=== PATIENT | male | born 1955 | race Caucasian/White ===

== ENCOUNTER → 2017-05-29 | Outpatient (CLI) | payer MEDICAID, MEDICARE ==
[~2017-05-29] MED LIST: ALBU17AE23 IH; ASP81TEC PO; ATOR40TA PO; CPR500T PO; GLIM4TAB PO; HYOS0.1216 PO; LISI-556 PO; LVT.15T PO; METF-380 PO; PHEN200T27 PO; PRAV80TA2 PO; TIOT18CA IH
--- NOTE | 2017-05-29 13:02 | Diagnostic Imaging Report ---
INDICATION: Bilateral leg pain. Grayscale, color-flow and duplex Doppler evaluation of bilateral lower extremity deep venous systems was performed. There is no evidence of a right or left lower extremity DVT. Both lower extremity deep venous systems demonstrate normal compressibility with normal response to augmentation and Valsalva. No fluid collection or mass is seen. IMPRESSION: No evidence of right or left lower extremity DVT. Dictated by: Dictated on workstation # [id number]
== END ==
LOC: RAD 08:05
PROVIDERS: ATTEND Internal Medicine
DX: R22.43 Localized swelling, mass and lump, lower limb, bilateral (principal)
CPT/HCPCS: 93970

== ENCOUNTER → 2017-06-29 | Outpatient (CLI) | payer MEDICARE ==
[~2017-06-29] MED LIST changes: +FURO40TA4 PO; +GLIM2TAB PO; +HYDR-3812 PO; +LEVO175T5 PO; +LOSA50TA36 PO; +METF10002 PO; +PRAV40TA2 PO; +TIOT18CA2 IH
== END ==
LOC: WOUNDCARE 10:27
PROVIDERS: ATTEND Nurse Practitioner
DX: L97.212 Non-pressure chronic ulcer of right calf with fat layer exposed (principal); I87.331 Chronic venous hypertension (idiopathic) with ulcer and inflammation of right lower extremity; I87.322 Chronic venous hypertension (idiopathic) with inflammation of left lower extremity; I70.232 Atherosclerosis of native arteries of right leg with ulceration of calf; E11.622 Type 2 diabetes mellitus with other skin ulcer; J44.9 Chronic obstructive pulmonary disease, unspecified; E66.01 Morbid (severe) obesity due to excess calories; T65.222A Toxic effect of tobacco cigarettes, intentional self-harm, initial encounter
CPT/HCPCS: 11042

== ENCOUNTER → 2017-07-06 | Outpatient (CLI) | payer MEDICARE | LOC: WOUNDCARE 10:25 | PROVIDERS: ATTEND Surgery | DX: L97.212 Non-pressure chronic ulcer of right calf with fat layer exposed (principal); I87.331 Chronic venous hypertension (idiopathic) with ulcer and inflammation of right lower extremity; I87.322 Chronic venous hypertension (idiopathic) with inflammation of left lower extremity; I70.232 Atherosclerosis of native arteries of right leg with ulceration of calf; E11.622 Type 2 diabetes mellitus with other skin ulcer; T65.222A Toxic effect of tobacco cigarettes, intentional self-harm, initial encounter; E66.01 Morbid (severe) obesity due to excess calories; J44.9 Chronic obstructive pulmonary disease, unspecified | CPT/HCPCS: 11042 ==

== ENCOUNTER → 2017-07-11 | Outpatient (CLI) | payer MEDICARE | LOC: WOUNDCARE 12:22 | PROVIDERS: ATTEND Surgery | DX: E11.622 Type 2 diabetes mellitus with other skin ulcer (principal); I70.232 Atherosclerosis of native arteries of right leg with ulceration of calf; I87.331 Chronic venous hypertension (idiopathic) with ulcer and inflammation of right lower extremity; I87.322 Chronic venous hypertension (idiopathic) with inflammation of left lower extremity; L97.212 Non-pressure chronic ulcer of right calf with fat layer exposed | CPT/HCPCS: 29581 ==

== ENCOUNTER → 2017-07-26 | Outpatient (CLI) | payer MEDICARE ==
--- NOTE | 2017-07-26 17:26 | Diagnostic Imaging Report ---
INDICATION: 30+-pack-year history of smoking. COMPARISON: None. TECHNIQUE: Routine noncontrast low-dose CT of the chest was performed per department protocol for screening purposes. FINDINGS: Evaluation of the lung west demonstrates relative focal area of ground-glass density with interstitial thickening involving the anterior margins of the right upper lobe. Findings have a chronic fibrotic appearance. Otherwise, there is no focal consolidation, pleural effusion, nor pneumothorax on either side. There is a 5 mm ground-glass micronodular density within the right upper lobe (image 116, series 4). There is a background of diffuse mild emphysematous disease. Punctate 3 mm micronodule is noted within the lateral margins of the right lower lobe (image 231, series 4). Cardiomediastinal structures show normal heart size. There is mild calcified coronary and aortic atherosclerosis. Note is also made of aneurysmal dilatation of the ascending thoracic aorta, as it measures approximately 4.3 cm in diameter. There is also enlargement of the main arterial trunk, as it measures 3.7 cm in diameter. There is no large pericardial effusion. No pathologically enlarged or morphologically abnormal adenopathy is seen within the mediastinum, biju, nor axillae. Bony structures show age-related degenerative changes. No lytic or blastic bony lesions are seen. Included portions of the upper abdomen show no additional acute abnormalities. IMPRESSION: 1. 5 mm ground-glass micronodular density within the right upper lobe and punctate subpleural micronodular density within the right lower lobe. Continued annual screening with low-dose CT chest in 12 months is recommended. 2. Background of mild emphysematous disease with chronic fibrotic appearing changes to the right upper lobe. 3. Mild calcified aortic and coronary atherosclerosis. 4. Aneurysmal dilatation of the ascending thoracic aorta. 5. Enlargement of the main pulmonary arterial trunk. Findings can be seen with underlying pulmonary arterial hypertension. LUNG-RADS CATEGORY: 2. MODIFIER: As above. Dictated by: Dictated on workstation # [id number]
== END ==
LOC: RAD 15:05
PROVIDERS: ATTEND Internal Medicine
DX: Z12.2 Encounter for screening for malignant neoplasm of respiratory organs (principal); J43.9 Emphysema, unspecified; I70.0 Atherosclerosis of aorta; I25.10 Atherosclerotic heart disease of native coronary artery without angina pectoris; I71.2 Thoracic aortic aneurysm, without rupture; I77.89 Other specified disorders of arteries and arterioles; F17.210 Nicotine dependence, cigarettes, uncomplicated

== ENCOUNTER → 2017-07-27 | Outpatient (CLI) | payer MEDICARE | LOC: WOUNDCARE 08:56 | PROVIDERS: ATTEND Surgery | DX: E11.622 Type 2 diabetes mellitus with other skin ulcer (principal); L97.211 Non-pressure chronic ulcer of right calf limited to breakdown of skin; I87.331 Chronic venous hypertension (idiopathic) with ulcer and inflammation of right lower extremity; I87.322 Chronic venous hypertension (idiopathic) with inflammation of left lower extremity; T65.222A Toxic effect of tobacco cigarettes, intentional self-harm, initial encounter; E66.01 Morbid (severe) obesity due to excess calories; J44.9 Chronic obstructive pulmonary disease, unspecified | CPT/HCPCS: 99212 ==

== ENCOUNTER 2017-08-14 05:55 | Outpatient (CLI) | payer MEDICARE ==
[~2017-08-14] VITALS: Ht 182.9 cm; Wt 127.5 kg
[~2017-08-14 05:55] MED LIST changes: -FURO40TA4 PO; -GLIM2TAB PO; -HYDR-3812 PO; -LEVO175T5 PO; -LOSA50TA36 PO; -METF10002 PO; -PRAV40TA2 PO; -TIOT18CA2 IH
[2017-08-14] MEDS ORDERED: METF10002 PO (13:51)
[2017-08-14] MEDS ORDERED: LOSA50TA36 PO (13:51)
[2017-08-14] MEDS ORDERED: HYDR-3812 PO (13:51)
[2017-08-14] MEDS ORDERED: LEVO175T5 PO (13:51)
[2017-08-14] MEDS ORDERED: PRAV40TA2 PO (13:51)
[2017-08-14] MEDS ORDERED: FURO40TA4 PO (13:51)
[2017-08-14] MEDS ORDERED: GLIM2TAB PO (13:51)
[2017-08-14] MEDS ORDERED: TIOT18CA2 IH (13:51)
== END 2017-08-14 13:59 ==
LOC: PREOP 05:55
PROVIDERS: ATTEND Surgery
DX: Z01.818 Encounter for other preprocedural examination (principal); Z12.11 Encounter for screening for malignant neoplasm of colon

== ENCOUNTER 2017-08-21 12:23 | Day surgery (SDC) | payer MEDICARE ==
[~2017-08-21] VITALS: Ht 182.9 cm; Wt 127.5 kg
[~2017-08-21 12:23] MED LIST changes: +FURO40TA4 PO; +GLIM2TAB PO; +HYDR-3812 PO; +LEVO175T5 PO; +LOSA50TA36 PO; +METF10002 PO; +PRAV40TA2 PO; +TIOT18CA2 IH
[2017-08-21] MEDS ORDERED: LACTATED RINGERS 1,000 ML IV ONE (12:33)
[2017-08-21] MEDS ORDERED: LACTATED RINGERS 1,000 ML IV STA (12:53)
[2017-08-21 12:57] VITALS: BP 133/78
[2017-08-21] MEDS ORDERED: PROPOFOL INJECTION 50 ML IV ONE (13:00)
[2017-08-21] MEDS ORDERED: MIDAZOLAM 2 MG/2 ML (VERSED) VIAL ONE (13:00)
--- NOTE | 2017-08-21 13:03 | Progress Note-Pre Operative ---
Pre-Operative Progress Note H&P Reviewed The H&P was reviewed, patient examined and no changes noted. Date Seen by Provider: Aug 21, 2017 Time Seen by Provider: 13:03 Date H&P Reviewed: Aug 21, 2017 Time H&P Reviewed: 13:03 Pre-Operative Diagnosis: screening colonoscopy NAJMA JIANG DO Aug 21, 2017 13:03
--- NOTE | 2017-08-21 13:50 | Progress Note-Post Operative ---
Post-Operative Progess Note Surgeon (s)/Business Applications Developer (s) Surgeon NAJMA JIANG DO Business Applications Developer: na Pre-Operative Diagnosis screening colonoscopy Post-Operative Diagnosis colon polyps Procedure & Operative Findings Date of Procedure 08/21/17 Procedure Performed/Findings colonoscopy with hot bx polypectomy x 5 Anesthesia Type per mda Estimated Blood Loss Estimated blood loss (mL): none Specimens/Packing Specimens Removed colon polyps NAJMA JIANG DO Aug 21, 2017 13:50
--- NOTE | 2017-08-21 13:51 | Discharge Inst-Simple/Standard ---
Discharge Inst-Standard Patient Instructions/Follow Up Plan of Care/Instructions/FU: 2 weeks Vansesa Activity as Tolerated: Yes Discharge Diet: Regular Diet NAJMA JIANG DO Aug 21, 2017 13:51
[2017-08-21 14:00] VITALS: BP 123/67
[2017-08-21 14:50] VITALS: BP 130/81
[2017-08-21 14:55] VITALS: BP 130/81
--- NOTE | 2017-08-21 16:02 | Anesthesia-General Post-Op ---
MAC Patient Condition Mental Status/LOC: Same as Preop Cardiovascular: Satisfactory Nausea/Vomiting: Absent Respiratory: Satisfactory Pain: Controlled Complications: Absent Post Op Complications Complications None Follow Up Care/Instructions Patient Instructions None needed. Anesthesiology Discharge Order Discharge Order Patient was seen after the procedure and he was doing well, no complaints, stable vital signs, no apparent adverse anesthesia problems. NITESH SESAY DO Aug 21, 2017 16:02
--- NOTE | 2017-08-22 03:09 | OPERATIVE REPORT ---
DATE OF SERVICE: 08/21/2017 PREOPERATIVE DIAGNOSIS: Family history of colon cancer, screening colonoscopy. POSTOPERATIVE DIAGNOSIS: Colon polyps. PROCEDURE: Colonoscopy with hot biopsy polypectomy x5. SURGEON: Najma Mendez DO ANESTHESIA: Per MDA. ESTIMATED BLOOD LOSS: None. COMPLICATIONS: None. INDICATIONS: The patient is a 62-year-old male who colonoscopy today. He understands risks and benefits of procedure and wished to proceed with procedure. Consent was signed on the chart. DESCRIPTION OF PROCEDURE: The patient was taken to the endoscopy suite, placed in left lateral recumbent position. Timeout was performed. Digital rectal exam was performed. There were no palpable polyps, mass or ulcerations. The scope was inserted in the rectum and advanced all the way to the cecum with minimal difficulty. Prep was adequate. There were no polyps, mass or ulceration of the cecum or ascending colon. At the hepatic flexure, there were 2 polyps present, which hot biopsy polypectomies were performed. Scope was continued to be slowly retracted back more distal transverse colon. Hot biopsy polypectomy was performed. Scope was continuously retracted back. There were no polyps, masses or ulcerations within the descending colon. Within the sigmoid colon, there are 2 polyps present within this area, which hot biopsy polypectomies were performed. Scope was continuously retracted back to the rectum, where it was also retroflexed noting no other pathology, except for some slight hemorrhoidal disease. Scope was returned to its normal position, slowly withdrawn until completely removed. The patient tolerated the procedure well without any complications and sent to recovery room in stable condition. RECOMMENDATIONS: The patient recommended to have a repeat colonoscopy in 3 years. If he has any problems prior to that, he should be reevaluated at that time. The patient will follow up in 2 weeks to discuss pathology results. Job ID: [id number] DocumentID: [id number] Dictated Date: 08/21/2017 13:55:44 Supervisor Brine Date: 08/22/2017 01:07:40 Dictated By: NAJMA MENDEZ DO
== END 2017-08-21 15:22 | disposition home or self-care (01) ==
LOC: ENDO 12:23
PROVIDERS: ATTEND Surgery
DX: Z12.11 Encounter for screening for malignant neoplasm of colon (principal); D12.3 Benign neoplasm of transverse colon; K63.5 Polyp of colon; Z80.0 Family history of malignant neoplasm of digestive organs; E11.9 Type 2 diabetes mellitus without complications; I10 Essential (primary) hypertension; J44.9 Chronic obstructive pulmonary disease, unspecified; J45.909 Unspecified asthma, uncomplicated; G47.33 Obstructive sleep apnea (adult) (pediatric); F17.210 Nicotine dependence, cigarettes, uncomplicated; Z79.84 Long term (current) use of oral hypoglycemic drugs; Z79.899 Other long term (current) drug therapy
CPT/HCPCS: 82962

== ENCOUNTER → 2018-09-11 | Outpatient (CLI) | payer MEDICARE, OTHER ==
[~2018-09-11] MED LIST changes: -LOSA50TA36 PO; +LOSA50TA63 PO; +METF-399 PO; -METF10002 PO
[2018-09-11 11:56] LABS: BASOPHILS % (AUTO) 0 % (0-10); EOSINOPHILS # (AUTO) 0.4 10^3/uL (0.0-0.3); EOSINOPHILS % (AUTO) 6 % (0-10); HEMATOCRIT 46 % (40-54); HEMOGLOBIN 14.9 G/DL (13.3-17.7); LYMPHOCYTES # (AUTO) 1.1 X 10^3 (1.0-4.0); LYMPHOCYTES % (AUTO) 16 % (12-44); MEAN CORPUSCULAR HEMOGLOBIN 31 PG (25-34); MEAN CORPUSCULAR HGB CONC 33 G/DL (32-36); MEAN CORPUSCULAR VOLUME 95 FL (80-99); MEAN PLATELET VOLUME 10.1 FL (7.4-10.4); MONOCYTES # (AUTO) 0.8 X 10^3 (0.0-1.0); MONOCYTES % (AUTO) 11 % (0-12); NEUTROPHILS # (AUTO) 4.8 X 10^3 (1.8-7.8); NEUTROPHILS % (AUTO) 67 % (42-75); PLATELET COUNT 181 10^3/uL (130-400); RED CELL DISTRIBUTION WIDTH 15.5 % (10.0-14.5); WHITE BLOOD COUNT 7.2 10^3/uL (4.3-11.0)
[2018-09-11 12:16] LABS: ALANINE AMINOTRANSFERASE 36 U/L (0-55); ALBUMIN 3.9 GM/DL (3.2-4.5); ALKALINE PHOSPHATASE 81 U/L (40-136); BILIRUBIN,TOTAL 0.8 MG/DL (0.1-1.0); BUN/CREATININE RATIO 17; CALCIUM 10.1 MG/DL (8.5-10.1); CARBON DIOXIDE 27 MMOL/L (21-32); CHLORIDE 103 MMOL/L (98-107); CREATININE SERUM 0.99 MG/DL (0.60-1.30); GFR ESTIMATED > 60; GLUCOSE 68 MG/DL (70-105); POTASSIUM 4.1 MMOL/L (3.6-5.0); SODIUM 140 MMOL/L (135-145); TOTAL PROTEIN 7.2 GM/DL (6.4-8.2)
== END ==
LOC: LAB 11:25
PROVIDERS: ATTEND Surgery
DX: E11.622 Type 2 diabetes mellitus with other skin ulcer (principal); L97.211 Non-pressure chronic ulcer of right calf limited to breakdown of skin
CPT/HCPCS: 36415; 80053; 83036; 84134; 85025

== ENCOUNTER → 2018-09-11 | Outpatient (CLI) | payer MEDICARE, OTHER | LOC: WOUNDCARE 09:25 | PROVIDERS: ATTEND Surgery | DX: E11.622 Type 2 diabetes mellitus with other skin ulcer (principal); L97.211 Non-pressure chronic ulcer of right calf limited to breakdown of skin; I87.331 Chronic venous hypertension (idiopathic) with ulcer and inflammation of right lower extremity; I70.232 Atherosclerosis of native arteries of right leg with ulceration of calf; T65.222A Toxic effect of tobacco cigarettes, intentional self-harm, initial encounter; E66.01 Morbid (severe) obesity due to excess calories; J44.9 Chronic obstructive pulmonary disease, unspecified | CPT/HCPCS: 99213 ==

== ENCOUNTER → 2018-09-18 | Outpatient (CLI) | payer MEDICARE, OTHER | LOC: WOUNDCARE 09:23 | PROVIDERS: ATTEND Surgery | DX: L97.211 Non-pressure chronic ulcer of right calf limited to breakdown of skin (principal); I87.331 Chronic venous hypertension (idiopathic) with ulcer and inflammation of right lower extremity; I70.232 Atherosclerosis of native arteries of right leg with ulceration of calf; E11.622 Type 2 diabetes mellitus with other skin ulcer; T65.222A Toxic effect of tobacco cigarettes, intentional self-harm, initial encounter; E66.01 Morbid (severe) obesity due to excess calories; E11.52 Type 2 diabetes mellitus with diabetic peripheral angiopathy with gangrene; I96 Gangrene, not elsewhere classified | CPT/HCPCS: 29581 ==

== ENCOUNTER → 2018-09-25 | Outpatient (CLI) | payer MEDICARE, OTHER | LOC: WOUNDCARE 08:31 | PROVIDERS: ATTEND Surgery | DX: L97.211 Non-pressure chronic ulcer of right calf limited to breakdown of skin (principal); I87.331 Chronic venous hypertension (idiopathic) with ulcer and inflammation of right lower extremity; I70.232 Atherosclerosis of native arteries of right leg with ulceration of calf; E11.622 Type 2 diabetes mellitus with other skin ulcer; T65.222A Toxic effect of tobacco cigarettes, intentional self-harm, initial encounter; E66.01 Morbid (severe) obesity due to excess calories; J44.9 Chronic obstructive pulmonary disease, unspecified; E11.52 Type 2 diabetes mellitus with diabetic peripheral angiopathy with gangrene; I96 Gangrene, not elsewhere classified | CPT/HCPCS: 29581 ==

== ENCOUNTER → 2018-10-02 | Outpatient (CLI) | payer MEDICARE, OTHER | LOC: WOUNDCARE 07:59 | PROVIDERS: ATTEND Surgery | DX: E11.622 Type 2 diabetes mellitus with other skin ulcer (principal); I87.331 Chronic venous hypertension (idiopathic) with ulcer and inflammation of right lower extremity; L97.211 Non-pressure chronic ulcer of right calf limited to breakdown of skin; T65.222A Toxic effect of tobacco cigarettes, intentional self-harm, initial encounter; E66.01 Morbid (severe) obesity due to excess calories; J44.9 Chronic obstructive pulmonary disease, unspecified | CPT/HCPCS: 99212 ==

== ENCOUNTER 2020-01-06 11:22 | Inpatient (IN) | payer MEDICARE, OTHER ==
[~2020-01-06] VITALS: Ht 182.8 cm; Wt 129.8 kg
[~2020-01-06 11:22] MED LIST changes: +ACHD5005 PO; -GLIM2TAB PO; +GLIM2TAB4 PO; -HYDR-3812 PO; -TIOT18CA2 IH; +TIOT18CA2 INH
[2020-01-06 13:24] LABS: BASOPHILS % (AUTO) 1 % (0-10); EOSINOPHILS # (AUTO) 0.1 10^3/uL (0.0-0.3); EOSINOPHILS % (AUTO) 2 % (0-10); HEMATOCRIT 46 % (40-54); HEMOGLOBIN 14.1 g/dL (13.3-17.7); LYMPHOCYTES # (AUTO) 0.8 10^3/uL (1.0-4.0); LYMPHOCYTES % (AUTO) 12 % (12-44); MEAN CORPUSCULAR HEMOGLOBIN 31 pg (25-34); MEAN CORPUSCULAR HGB CONC 31 g/dL (32-36); MEAN CORPUSCULAR VOLUME 102 fL (80-99); MEAN PLATELET VOLUME 10.3 fL (9.0-12.2); MONOCYTES # (AUTO) 0.7 10^3/uL (0.0-1.0); MONOCYTES % (AUTO) 10 % (0-12); NEUTROPHILS % (AUTO) 76 % (42-75); PLATELET COUNT 188 10^3/uL (130-400); WHITE BLOOD COUNT 6.6 10^3/uL (4.3-11.0)
[2020-01-06 13:28] LABS: ALBUMIN 3.6 GM/DL (3.2-4.5)
[2020-01-06 13:29] LABS: CHLORIDE 97 MMOL/L (98-107); POTASSIUM 4.1 MMOL/L (3.6-5.0); SODIUM 144 MMOL/L (135-145)
[2020-01-06 13:30] LABS: CALCIUM 10.4 MG/DL (8.5-10.1)
[2020-01-06 13:31] LABS: GLUCOSE 142 MG/DL (70-105); TOTAL PROTEIN 7.4 GM/DL (6.4-8.2)
[2020-01-06 13:32] LABS: CARBON DIOXIDE 37 MMOL/L (21-32)
[2020-01-06 13:33] LABS: BILIRUBIN,TOTAL 1.2 MG/DL (0.1-1.0)
[2020-01-06 13:34] LABS: ALKALINE PHOSPHATASE 74 U/L (40-136)
[2020-01-06 13:35] LABS: CREATININE SERUM 1.19 MG/DL (0.60-1.30); GFR ESTIMATED > 60
[2020-01-06 13:36] LABS: BUN/CREATININE RATIO 14
[2020-01-06 13:37] LABS: ALANINE AMINOTRANSFERASE 28 U/L (0-55)
--- NOTE | 2020-01-06 14:18 | Diagnostic Imaging Report ---
INDICATION: Hypoxia. TECHNIQUE: Frontal chest obtained at 02:10 p.m. and compared to 07/04/2010. FINDINGS: There is marked cardiomegaly which has increased compared to the prior study. There is central vascular congestion. There is some right perihilar scarring versus atelectasis. There is some mild right basilar and left basilar infiltrate versus atelectasis. There is no pleural fluid or pneumothorax. IMPRESSION: Prominent cardiomegaly and central vascular congestion. There is some right perihilar scarring versus atelectasis. There is some bibasilar infiltrate versus atelectasis. There is no significant pleural fluid. Dictated by: Dictated on workstation # [id number]
--- NOTE | 2020-01-06 14:32 | NUR ---
Gildardo LEONARDO APRN AWARE PATIENT REQUESTIN PAIN MEDS.
[2020-01-06] MEDS ORDERED: HYDROcodone/APAP 5 MG/325 MG (LORTAB) TAB PO ONE (15:30)
--- NOTE | 2020-01-06 15:41 | ED General ---
General Chief Complaint: General Problems/Pain Stated Complaint: WOUNDS R LEG Nursing Triage Note: AMB TO TRIAGE WITH CONCERNS OF LOWER LEG SWELLING LEG RED THICKEN SCALING SKIN ON LEG WAS SEEN BY WOUND 1 YEAR AGO. REPORTS THEY GOT BETTER OVER THE LAST MONTH HAS GOT WORSE. PLACED IN ROOM AFTER TRIAGE DUE TO SA02 79% PLACED ON 2L NC Nursing Sepsis Screen: No Definite Risk Source of Information: Patient Exam Limitations: No Limitations History of Present Illness Date Seen by Provider: Jan 06, 2020 Time Seen by Provider: 14:00 Initial Comments To ER with wound to the right lower leg. This has been ongoing for about a month. He saw wound care 1 year ago. Denies fevers or chills. Timing/Duration: 1-2 Days Severity: Moderate Associated Systoms: Denies Symptoms Allergies and Home Medications Allergies Coded Allergies: No Known Drug Allergies (Unverified , 08/14/17) Home Medications Furosemide 40 Mg Tablet, 40 MG PO DAILY, (Reported) Glimepiride 2 Mg Tablet, 2 MG PO DAILY, (Reported) Hydrocodone Bit/Acetaminophen 1 Each Tablet, 1 EACH PO TID PRN for PAIN- MODERATE, (Reported) Levothyroxine Sodium 175 Mcg Tablet, 175 MCG PO DAILY, (Reported) Losartan Potassium 50 Mg Tablet, 50 MG PO DAILY, (Reported) Metformin HCl 1,000 Mg Tablet, 1,000 MG PO BID, (Reported) Pravastatin Sodium 40 Mg Tablet, 40 MG PO HS, (Reported) Tiotropium Coyote 1 Inh Aerp, 1 INH IH DAILY, (Reported) Patient Home Medication List Home Medication List Reviewed: Yes Review of Systems Review of Systems Constitutional: see HPI EENTM: see HPI Respiratory: no symptoms reported Cardiovascular: no symptoms reported Genitourinary: no symptoms reported Musculoskeletal: no symptoms reported Skin: see HPI Psychiatric/Neurological: No Symptoms Reported Hematologic/Lymphatic: No Symptoms Reported Immunological/Allergic: no symptoms reported Past Wqgzrfd-Zhgyac-Uclebi Hx Patient Social History Alcohol Use: Denies Use Recreational Drug Use: No Type Used: Cigarettes Recent Foreign Travel: No Contact w/Someone Who Travel: No Recent Infectious Disease Expo: No Recent Hopitalizations: No Immunizations Up To Date Date of Pneumonia Vaccine: Jun 18, 2017 Date of Influenza Vaccine: Dec 18, 2016 Seasonal Allergies Seasonal Allergies: Yes Past Medical History Surgeries: Yes (UMBILICAL HERNIA) Respiratory: Yes Asthma, Sleep Apnea, COPD Currently Using CPAP: Yes Cardiac: Yes High Cholesterol, Hypertension Neurological: No Reproductive Disorders: No Sexually Transmitted Disease: No HIV/AIDS: No Kidney Stones Gastrointestinal: No Musculoskeletal: No Endocrine: Yes Loss of Vision: Bilateral Cancer: No Psychosocial: No Integumentary: No Blood Disorders: No Adverse Reaction/Blood Tranf: No (N/A) Physical Exam Vital Signs Vital Signs - First Documented 01/06/20 01/06/20 12:29 12:56 Temp 36.4 Pulse 76 Resp 18 B/P (MAP) 128/76 (93) Pulse Ox 79 O2 Delivery Nasal Cannula O2 Flow Rate 2.00 Capillary Refill : Less Than 3 Seconds Height, Weight, BMI Height: 6'0.00" Weight: 281lbs. 0.0oz. 127.238003zh; 38.00 BMI Method: General Appearance: No Apparent Distress, WD/WN Eyes: Bilateral Eye Normal Inspection, Bilateral Eye PERRL, Bilateral Eye EOMI Respiratory: No Accessory Muscle Use, No Respiratory Distress, Decreased Breath Sounds; No Respiratory Distress; Other (he does not wear oxygen at home but his oxygen saturation was about 80% on arrival. He was given 2 L submental oxygen increased to 94%. That was turned off and he again fell to about 86%. Needed admission for hypoxia, antibiotics for the leg.) Cardiovascular: Regular Rate, Rhythm, Normal Peripheral Pulses Gastrointestinal: Normal Bowel Sounds, Non Tender, Soft Neurologic/Psychiatric: Alert, Oriented x3 Skin: Normal Color, Warm/Dry Lymphatic: Other (the right lower extremity from the upper calf distally has scaling thickened erythematous skin with oozing and weeping of serous honey colored fluid.) Comments He has a history of COPD, does not wear oxygen at home, was about 80% on arrival to ER. Progress/Results/Core Measures Suspected Sepsis Recent Fever Within 48 Hours: No Infection Criteria Present: None New/Unexplained Altered Menta: No Sepsis Screen: No Definite Risk SIRS Temperature: Pulse: 76 Respiratory Rate: 18 Laboratory Tests 01/06/20 12:08: White Blood Count 6.6 Blood Pressure 128 /76 Mean: 93 Laboratory Tests 01/06/20 12:08: Creatinine 1.19, Platelet Count 188, Total Bilirubin 1.2H Results/Orders Lab Results Laboratory Tests Test 01/06/20 12:08 Range/Units White Blood Count 6.6 4.3-11.0 10^3/uL Red Blood Count 4.49 4.30-5.52 10^6/uL Hemoglobin 14.1 13.3-17.7 g/dL Hematocrit 46 40-54 % Mean Corpuscular Volume 102 H 80-99 fL Mean Corpuscular Hemoglobin 31 25-34 pg Mean Corpuscular Hemoglobin Concent 31 L 32-36 g/dL Red Cell Distribution Width 16.2 H 10.0-14.5 % Platelet Count 188 130-400 10^3/uL Mean Platelet Volume 10.3 9.0-12.2 fL Immature Granulocyte % (Auto) 0 % Neutrophils (%) (Auto) 76 H 42-75 % Lymphocytes (%) (Auto) 12 12-44 % Monocytes (%) (Auto) 10 0-12 % Eosinophils (%) (Auto) 2 0-10 % Basophils (%) (Auto) 1 0-10 % Neutrophils # (Auto) 5.0 1.8-7.8 10^3/uL Lymphocytes # (Auto) 0.8 L 1.0-4.0 10^3/uL Monocytes # (Auto) 0.7 0.0-1.0 10^3/uL Eosinophils # (Auto) 0.1 0.0-0.3 10^3/uL Basophils # (Auto) 0.0 0.0-0.1 10^3/uL Immature Granulocyte # (Auto) 0.0 0.0-0.1 10^3/uL Sodium Level 144 135-145 MMOL/L Potassium Level 4.1 3.6-5.0 MMOL/L Chloride Level 97 L 98-107 MMOL/L Carbon Dioxide Level 37 H 21-32 MMOL/L Anion Gap 10 5-14 MMOL/L Blood Urea Nitrogen 17 7-18 MG/DL Creatinine 1.19 0.60-1.30 MG/DL Estimat Glomerular Filtration Rate > 60 BUN/Creatinine Ratio 14 Glucose Level 142 H 70-105 MG/DL Calcium Level 10.4 H 8.5-10.1 MG/DL Corrected Calcium 10.7 H 8.5-10.1 MG/DL Total Bilirubin 1.2 H 0.1-1.0 MG/DL Aspartate Amino Transf (AST/SGOT) 28 5-34 U/L Alanine Aminotransferase (ALT/SGPT) 28 0-55 U/L Alkaline Phosphatase 74 40-136 U/L B-Type Natriuretic Peptide 272.5 H <100.0 PG/ML Total Protein 7.4 6.4-8.2 GM/DL Albumin 3.6 3.2-4.5 GM/DL My Orders Orders - MAGY BAILEY APRN Cbc With Automated Diff (01/06/20 13:15) Comprehensive Metabolic Panel (01/06/20 13:15) Ed Iv/Invasive Line Start (01/06/20 13:15) BNP (01/06/20 13:15) Chest 1 View, Ap/Pa Only (01/06/20 13:33) Hydrocodone/Apap 5/325 Tablet (Lortab 5 (01/06/20 15:30) Us Venous Upper Ext Rt (01/06/20 16:02) Medications Given in ED Current Medications Medications Dose Ordered Sig/Wagner Route Start Time Stop Time Status Last Admin Dose Admin Acetaminophen/ Hydrocodone Bitart 1 tab ONCE ONCE PO 01/06/20 15:30 01/06/20 15:31 DC 01/06/20 15:21 1 TAB Vital Signs/I&O 01/06/20 01/06/20 12:29 12:56 Temp 36.4 Pulse 76 Resp 18 B/P (MAP) 128/76 (93) Pulse Ox 79 79 O2 Delivery Nasal Cannula Room Air O2 Flow Rate 2.00 Capillary Refill : Less Than 3 Seconds Blood Pressure Mean: 93 Departure Impression Primary Impression: Hypoxia Additional Impressions: COPD exacerbation Cellulitis of right lower extremity Disposition: ADMITTED INPATIENT Condition: Stable Departure-Patient Inst. Referrals: EMILY PISANO MD (PCP/Family) Primary Care Physician MAGY BAILEY APRN Jan 06, 2020 15:41
--- NOTE | 2020-01-06 15:42 | NUR ---
PLACED BACK ON AT 2L SA02 AT 89%
--- NOTE | 2020-01-06 16:11 | NUR ---
CALLED FOR ROOM
--- NOTE | 2020-01-06 16:21 | NUR ---
COVID SWAB DONE BY Gildardo BAILEY APRN
--- NOTE | 2020-01-06 17:07 | NUR ---
CON'T TO WAIT FOR ADMIT PAPERS STEFFANIE COPIED.
[2020-01-06 17:47] VITALS: BP 114/59
[2020-01-06] MEDS: methylPREDNISolone 40 MG/ML (Solu-MEDROL) VIAL IV SCH (18:11)
[2020-01-06] MEDS: ENOXAPARIN 40 MG/0.4 ML (LOVENOX) SYR SC SCH (18:11)
--- NOTE | 2020-01-06 18:13 | NUR ---
CR 1.19; CR CL > 60; WT 127.2 KG; VANCO 2000 MG IV Q12H; TROUGH AFTER 3RD DOSE
[2020-01-06] MEDS ORDERED: HYDROcodone/APAP 5 MG/325 MG (LORTAB) TAB PO PRN (18:15)
[2020-01-06] MEDS ORDERED: PIPERACILLIN/TAZO 4.5 GM/NS 100 ML IV NR ×2 (18:15)
[2020-01-06] MEDS: LACTATED RINGERS 1,000 ML IV SCH (18:18)
[2020-01-06] MEDS: VANCOMYCIN 2000 MG/NS 500 ML IVPB IV SCH ×2 (18:23)
--- NOTE | 2020-01-06 18:28 | NUR ---
DENAE KRUGER admitted to room 415-1, with an admitting diagnosis of copd exacerbtion, on 01/06/20 from ED via wheel chair , accompanied by staff .DENAE KRUGER introduced to surroundings, call light, bed controls, phone, TV, temperature control, lights, meal times, smoking policy, visitor policy, side rail policy, bathrooms and showers. Patient Rights given to patient in the handbook. DENAE KRUGER verbalizes understanding that [facility] is not responsible for the loss or damage to any personal effects or valuables that are kept in the patients posession during their hospitalization. The following Patient Care Plans and discharge were discussed with the patient . DENAE KRUGER verbalizes understanding of Interdisciplinary Patient Education. Patient was informed about the Rapid Response Team and its purpose.
[2020-01-06 19:39] VITALS: BP 114/59
[2020-01-06] MEDS: MONTELUKAST 10 MG (SINGULAIR) TAB PO SCH (20:51)
[2020-01-06] MEDS: inSUlin ASPART (NovoLOG) 1 UNIT/0.01 ML (CHARGE PER UNIT) SC SCH (20:51)
[2020-01-06] MEDS ORDERED: ONDANSETRON 4 MG/2 ML (SDV) Z0FRAN IVP PRN (21:15)
[2020-01-06] MEDS ORDERED: LOPERAMIDE 2 MG (IMODIUM) TABLET PO PRN (21:15)
[2020-01-06] MEDS ORDERED: ENOXAPARIN 40 MG/0.4 ML (LOVENOX) SYR SC SCH (21:15)
[2020-01-06] MEDS ORDERED: DOCUSATE SODIUM 100 MG (COLACE) CAP PO PRN (21:15)
[2020-01-06] MEDS ORDERED: CALCIUM CARBONATE 500 MG (TUMS) TAB.CHEW PO PRN (21:15)
[2020-01-06] MEDS ORDERED: diphenhydrAMINE 25 MG TAB (BENADRYL) PO PRN (21:15)
[2020-01-06 21:26] VITALS: BP 128/76
--- NOTE | 2020-01-06 21:40 | NUR ---
MANISH QID AND Q2 PRN. JORGE LUGO. INITIATE 02 2-4L TO KEEP SATS GREATER THAN 90%. RT TO REASSESS OR REEVALUATE IN 72 HOURS OR NEEDED. Addendum: 01/06/20 at 2141 by SIMEON HART RT Amended: Links added.
[2020-01-06] MEDS: ADVAIR HFA 115/21 MCG INHALER 8 GM IH SCH (22:49)
[2020-01-06 23:52] VITALS: BP 119/62
[2020-01-07] MEDS: methylPREDNISolone 40 MG/ML (Solu-MEDROL) VIAL IV SCH ×3 (00:15→16:58)
[2020-01-07] MEDS: PIPERACILLIN/TAZO 4.5 GM/NS 100 ML IV SCH ×6 (00:15→16:57)
[2020-01-07] MEDS: HYDROcodone/APAP 5 MG/325 MG (LORTAB) TAB PO PRN ×4 (01:27→16:59)
[2020-01-07 04:08] VITALS: BP 119/75
[2020-01-07] MEDS: LACTATED RINGERS 1,000 ML IV SCH ×3 (04:38→17:00)
[2020-01-07 05:50] LABS: BASOPHILS % (AUTO) 0 % (0-10); EOSINOPHILS % (AUTO) 0 % (0-10); HEMATOCRIT 44 % (40-54); HEMOGLOBIN 13.3 g/dL (13.3-17.7); LYMPHOCYTES # (AUTO) 0.3 10^3/uL (1.0-4.0); LYMPHOCYTES % (AUTO) 6 % (12-44); MEAN CORPUSCULAR HEMOGLOBIN 31 pg (25-34); MEAN CORPUSCULAR HGB CONC 30 g/dL (32-36); MEAN CORPUSCULAR VOLUME 103 fL (80-99); MEAN PLATELET VOLUME 10.5 fL (9.0-12.2); MONOCYTES # (AUTO) 0.1 10^3/uL (0.0-1.0); MONOCYTES % (AUTO) 2 % (0-12); NEUTROPHILS # (AUTO) 4.8 10^3/uL (1.8-7.8); NEUTROPHILS % (AUTO) 91 % (42-75); PLATELET COUNT 173 10^3/uL (130-400); WHITE BLOOD COUNT 5.3 10^3/uL (4.3-11.0)
[2020-01-07 06:03] LABS: ALBUMIN 3.4 GM/DL (3.2-4.5); POTASSIUM 4.9 MMOL/L (3.6-5.0)
[2020-01-07 06:04] LABS: CALCIUM 9.6 MG/DL (8.5-10.1)
[2020-01-07 06:07] LABS: BILIRUBIN,TOTAL 1.1 MG/DL (0.1-1.0)
[2020-01-07] MEDS: VANCOMYCIN 2000 MG/NS 500 ML IVPB IV SCH ×4 (06:08→17:53)
[2020-01-07] MEDS: inSUlin ASPART (NovoLOG) 1 UNIT/0.01 ML (CHARGE PER UNIT) SC SCH ×4 (06:08→20:37)
[2020-01-07 06:09] LABS: CREATININE SERUM 1.22 MG/DL (0.60-1.30)
[2020-01-07 06:43] LABS: ANISOCYTOSIS SLIGHT; BAND NEUTROPHILS 4 %; LYMPHOCYTES % (MANUAL) 5 %; NEUTROPHILS % (MANUAL) 91 %; POLYCHROMASIA SLIGHT
[2020-01-07] MEDS ORDERED: RT-ALBUTEROL/IPRATROPIUM 3 ML (DUONEB) VIAL INH PRN (06:45)
[2020-01-07] MEDS: ADVAIR HFA 115/21 MCG INHALER 8 GM IH SCH ×2 (06:52→20:35)
[2020-01-07] MEDS: RT-ALBUTEROL/IPRATROPIUM 3 ML (DUONEB) VIAL INH SCH ×4 (06:52→20:33)
[2020-01-07 07:31] VITALS: BP 128/60
[2020-01-07] MEDS: SENNA W/DOCUSATE (SENOKOT S) TABLET PO SCH ×2 (08:38→20:39)
--- NOTE | 2020-01-07 08:55 | Diagnostic Imaging Report ---
PROCEDURE: US right lower extremity venous. TECHNIQUE: Multiple Real-time grayscale images were obtained over the right lower extremity in various projections. Additional spectral analysis and color Doppler duplex images were also obtained. INDICATION: Right lower extremity pain and swelling, open weeping wounds along the right calf. FINDINGS: The right lower extremity venous Doppler demonstrates no evidence of DVT. Edema is present in the right calf. The calf veins are not well visualized but no definite DVT is seen. IMPRESSION: The calf veins are not well imaged but no definite DVT is seen within these. The remainder of the deep venous system appears normal. Dictated by: Dictated on workstation # [id number]
[2020-01-07 10:47] VITALS: BP 125/60
[2020-01-07] MEDS ORDERED: CHOL10002 PO (11:23)
[2020-01-07] MEDS ORDERED: ASCO-262 PO (11:23)
--- NOTE | 2020-01-07 11:54 | History & Physical-Hospitalist ---
REMEDIOS SAPRKS MED STUDENT 01/07/20 1154: History of Present Illness HPI/Chief Complaint Hugh Mckay is a 64 y/o white male who presented to the ED yesterday afternoon with complaints of "wounds to my right lower leg, swelling, redness, and pain." His initial oxygen saturation in the ED was found to be 79% on RA. He reports these symptoms started approximately one month ago. The swelling, redness, warmth, and drainage has progressively worsened over the past week. He states he tried washing his leg frequently with soap and water as well as placing dressings on the wound at home. He cannot recall how or what he's been using to dress his right lower extremity. He reports his pain is a "12/10" currently and is extremely tender to palpation. Reports that touching the leg and walking worsen the pain. Reports that pain meds and lying with the leg elevated on a pillow help decrease the pain. He also reports having had an issue on this leg about a year ago for which he was treated by a wound physician. Source: patient, RN/MD (ED note) Exam Limitations: no limitations Date Seen 01/07/20 Time Seen by a Provider: 08:00 Attending Physician Shanna Barfield DO PCP Oleksandr Araujo MD Referring Physician Date of Admission Jan 06, 2020 at 17:03 Home Medications & Allergies Home Medications Reviewed patient Home Medication Reconciliation performed by pharmacy medication reconciliations two way radio technician and/or nursing. Patients Allergies have been reviewed. Allergies Allergies Coded Allergies No Known Drug Allergies (Unverified08/14/17) Past Ferfzlx-Uyaodj-Ubjgez Hx Past Med/Social Hx: Reviewed Nursing Past Med/Soc Hx Patient Social History Marrital Status: single Alcohol Use: Denies Use Recreational Drug Use: No Smoking Status: Former Smoker (patient reports 1.5 PPD x 35 years, quit 6 days ago per patient report) Type Used: Cigarettes Recent Foreign Travel: No Contact w/other who traveled: No Recent Hopitalizations: No Recent Infectious Disease Expo: No Immunizations Up To Date Date of Pneumonia Vaccine: Jun 18, 2017 Date of Influenza Vaccine: Dec 18, 2016 Seasonal Allergies Seasonal Allergies: Yes Past Medical History umbilical hernia repair Respiratory: Asthma, COPD, Sleep Apnea Currently Using CPAP: No (state he hasn't used CPAP in about 2 years) Currently Using BIPAP: No Cardiac: High Cholesterol, Hypertension, Irregular Heartbeat Reproductive: No Sexually Transmitted Disease: No HIV/AIDS: No Genitourinary: Kidney Stones Gastrointestinal: Abdominal Hernia (umbilical hernia repaired per patient report), Gastroesophageal Reflux, Polyps Endocrine: Diabetes, Non-Insulin dep Loss of Vision: Denies Hearing Impairment: Denies History of Blood Disorders: No Adverse Reaction to Blood [place]: No (N/A) Family History Asthma 19 FATHER Cardiovascular disease Colon cancer G8 BROTHER Diabetes mellitus 19 FATHER 19 MOTHER G8 BROTHER Respiratory disorder 19 FATHER G8 BROTHER Review of Systems Constitutional: no symptoms reported; No chills, No diaphoresis, No dizziness, No fever EENTM: no symptoms reported; No hearing loss, No ear pain, No blurred vision, No double vision Respiratory: cough (nonproductive), dyspnea on exertion; No hemoptysis; short of breath, wheezing (lugs all west bilaterally) Cardiovascular: No chest pain, No palpitations Gastrointestinal: no symptoms reported; No abdominal pain, No constipation, No diarrhea, No dysphagia, No hematemesis, No nausea, No vomiting Genitourinary: no symptoms reported; No dysuria, No frequency Musculoskeletal: no symptoms reported; No back pain, No joint pain Skin: change in color (RLE reddened, weeping, warm, edematous) Psychiatric/Neurological: No Symptoms Reported; Denies Anxiety, Denies Depressed, Denies Headache, Denies Numbness, Denies Tingling All Other Systems Reviewed Negative Unless Noted: Yes Physical Exam Physical Exam Vital Signs Vital Signs - First Documented 01/06/20 01/06/20 01/06/20 12:29 12:56 21:26 Temp 36.4 Pulse 76 Resp 18 B/P (MAP) 128/76 (93) Pulse Ox 79 O2 Delivery Nasal Cannula O2 Flow Rate 2.00 FiO2 28 Capillary Refill : Less Than 3 SecondsLess Than 3 Seconds Height, Weight, BMI Height: 6'0.00" Weight: 281lbs. 0.0oz. [id number]; 38.06 BMI Method: General Appearance: No Apparent Distress, WD/WN Eyes: Bilateral Eye EOMI HEENT: PERRL/EOMI, Pharynx Normal Neck: Normal Inspection, Non Tender Respiratory: Chest Non Tender, No Accessory Muscle Use, No Respiratory Distress, Wheezing Cardiovascular: Normal Peripheral Pulses, Irregularly Irregular Gastrointestinal: Normal Bowel Sounds, Non Tender, Soft; No Distended, No Guarding Rectal: Deferred Back: Normal Inspection; No Muscle Spasm, No Vertebral Tenderness Extremity: Normal Capillary Refill, Inflammation (RLE), Pedal Edema (RLE), Swelling (RLE) Neurologic/Psychiatric: Alert, Oriented x3, Normal Mood/Affect; No Disoriented, No Sensory Deficit Skin: Erythema (RLE warm, red, weeping, edematous) Lymphatic: No Adenopathy Results Results/Procedures Labs Laboratory Tests 01/06/20 12:08 01/07/20 05:20 Patient resulted labs reviewed. Imaging: Reviewed Imaging Report Assessment/Plan Admission Diagnosis Hypoxia COPD exacerbation Right lower extrem Cellulitis Admission Status: Inpatient Order (span 2 midnights) Reason for Inpatient Admission: Hypoxia- oxygen required COPD exac- needs steroids Cellulitis- needs IV abx Assessment and Plan Hypoxia COPD exacerbation Right lower extrem cellulitis 1. Continue vancomycin and Zosyn 2. Oxygen via NC, wean as tolerated 3. Scheduled Duoneb and PRN 4. Continue Solumedrol IV 5. Lovenox for DVT prophylaxis 6. Monitor glucoses, treat per sliding scale 7. Continue pain management with lortab 8. General surgery consult-cellulitis Clinical Quality Measures DVT/VTE Risk/Contraindication: Risk Factor Score Per Nursin RFS Level Per Nursing on Admit: 4+=Very High SHANNA BARFIELD DO 01/08/20 0548: History of Present Illness HPI/Chief Complaint CC: Right leg pain HPI: This is a 64yoWM clinic Pt of [facility] who presents to the ER with right lower extremity cellulitis with drainage, Dr. Mendez was consulted. Pt underwear venous-Doppler showing no evidence of DVT, he will be restarted on home medication and maintained on broad-spectrum antibiotics along with IV steroids for exacerbation of COPD with hypoxia. He continues to smoke about 1.5 packs per day. Past Gtawvnr-Olkbkh-Gxmywp Hx Past Med/Social Hx: Reviewed Nursing Past Med/Soc Hx, Reviewed and Corrections made Patient Social History Marrital Status: single Family History Asthma 19 FATHER Cardiovascular disease Colon cancer G8 BROTHER Diabetes mellitus 19 FATHER 19 MOTHER G8 BROTHER Respiratory disorder 19 FATHER G8 BROTHER Review of Systems Constitutional: see HPI Physical Exam Physical Exam General Appearance: No Apparent Distress, Chronically ill Respiratory: Crackles, Decreased Breath Sounds Cardiovascular: Regular Rate, Rhythm Extremity: Inflammation (RLE), Pedal Edema (RLE), Swelling (RLE) Neurologic/Psychiatric: Alert Assessment/Plan Admission Diagnosis IV steroids IV abx Sound care O2 Admission Status: Inpatient Order (span 2 midnights) Reason for Inpatient Admission: severe right leg cellulitis with aecopd with hypoxia Diagnosis/Problems Diagnosis/Problems (1) Cellulitis of right lower extremity Status: Acute (2) COPD exacerbation Status: Acute (3) Hypoxia Status: Acute Supervisory-Addendum Brief Verification & Attestation Participated in pt care: history, MDM, physical Personally performed: exam, history, MDM, supervision of care Care discussed with: Medical Student Procedures: n/a Results interpretation: Verified all documentation Verification and Attestation of Medical Student E/M Service A medical student performed and documented this service in my presence. I reviewed and verified all information documented by the medical student and made modifications to such information, when appropriate. I personally performed the physical exam and medical decision making. Shanna Barfield, Jan 08, 2020,05:46 REMEDIOS SPARKS MED STUDENT Jan 07, 2020 11:54 SHANNA BARFIELD DO Jan 08, 2020 05:48
[2020-01-07 12:00] VITALS: BP 125/60
--- NOTE | 2020-01-07 12:22 | NUR ---
I SPOKE WITH THE PATIENT, WENT THROUGH THEIR MED LIST BROUGHT FROM HOME, AND WENT THROUGH THE EXTERNAL MED HISTORY TO COMPLETE THIS MED REC. OTC: VITAMIN C VITAMIN D
--- NOTE | 2020-01-07 13:46 | NUR ---
"RD ASSESSMENT PMHx: COPD; hypercholesterolemia; HTN; DM PT INTERACTION: Pt was awake and pleasant during nutrition assessment. Pt states current appetite is alright. Note avg PO intake of 100% x2meal, per chart review. Pt states following a regular diet at home, and has no issues with chewing/swallowing food. Pt states no recent issues with nausea, vomiting, constipation, or diarrhea. Note last BM was 01/06, and pt currently on bowel regimen of senna BID, per chart review. Pt states recent wt loss, but is unsure of amount/timeframe. Note unable to determine recent wt hx, per chart review. Pt states current DM management is pretty good. Note unable to determine recent HbA1c, per chart review. Note presence of R LE wound, per chart review. ABNORMAL NUTRITION-RELATED LAB VALUES LOW: HIGH: BUN 19; glu 218; bili 1.8 Est. kcal needs: 7054-8928 kcal | 15-18 kcal/kg Est. Pro needs: 133-159 g Pro | 1.0-1.2 g Pro/kg PES STATEMENT: Inadequate protein intake ([id number]) related to increased protein needs as evidenced by presence of R LE wound. INTERVENTION: Continue with current diet order of CHO 75g/m 0snack diet. Offered diet education on DM management and CHO counting, but pt declined. Pt states knowing a bit of CHO counting, but not interested in it. Will attempt to offer again prior to discharge. Will continue to follow and reassess as pt needs, intake, and status change. Ya Rosales, MS RD LD"
--- NOTE | 2020-01-07 13:47 | NUR ---
RLE ELEVATED WITH PILLOWS
[2020-01-07 15:32] VITALS: BP 116/64
--- NOTE | 2020-01-07 17:06 | Consultation - Surgery ---
ANA LAFLEUR MED STUDENT 01/07/20 1706: History of Present Illness History of Present Illness Patient Consulted On(sherri/time) 01/07/20 17:00 Date Seen by Provider: Jan 07, 2020 Time Seen by Provider: 07:45 History of Present Illness Hugh Mckay is a 64 YO male smoker with history of DM, HTN, HLD, COPD and obesity who came to the ER for worsening of chronic wound of right leg. Pt states he has been dealing with this for years, but his leg has been worsening for the past month. He notes increased redness, pain, and clear weeping from the right leg. Has some redness in his left leg, but says his right is worse. His WBC in the ER was 5.3, but pt was started on Zosyn and Vancomycin. Also notes some SOB and wheezing due to his COPD. Pt smoked 1.5 ppd for the past 30+ years but says he quit 6 days ago. Not on home O2. Surgery consulted to assess for possible cellulitis. Allergies and Home Medications Allergies Coded Allergies: No Known Drug Allergies (Unverified , 08/14/17) Home Medications Ascorbate Calcium 500 Mg Tablet, 500 MG PO DAILY, (Reported) Cholecalciferol (Vitamin D3) 25 Mcg Tablet, 25 MCG PO DAILY, (Reported) Furosemide 40 Mg Tablet, 40 MG PO DAILY, (Reported) Glimepiride 2 Mg Tablet, 2 MG PO DAILY, (Reported) Levothyroxine Sodium 175 Mcg Tablet, 175 MCG PO DAILY, (Reported) TAKE HALF AN HOUR BEFORE BREAKFAST Losartan Potassium 50 Mg Tablet, 50 MG PO DAILY, (Reported) Metformin HCl 1,000 Mg Tablet, 1,000 MG PO BID, (Reported) Pravastatin Sodium 40 Mg Tablet, 40 MG PO HS, (Reported) Tiotropium [place] 1 Inh Aerp, 1 PUFF INH DAILY, (Reported) Past Jjhdrgi-Rxdphw-Kompun Hx Patient Social History Alcohol Use: Denies Use Recreational Drug Use: No Smoking Status: Former Smoker (patient reports 1.5 PPD x 35 years, quit 6 days ago per patient report) Type Used: Cigarettes Recent Foreign Travel: No Contact w/Someone Who Travel: No Recent Infectious Disease Expo: No Recent Hopitalizations: No Immunizations Up To Date Date of Pneumonia Vaccine: Jun 18, 2017 Date of Influenza Vaccine: Dec 18, 2016 Seasonal Allergies Seasonal Allergies: Yes Surgeries History of Surgeries: Yes (UMBILICAL HERNIA) Respiratory History of Respiratory Disorde: Yes Respiratory Disorders: Asthma, Sleep Apnea, COPD Cardiovascular History of Cardiac Disorders: Yes Cardiac Disorders: High Cholesterol, Hypertension, Irregular Heartbeat Neurological History of Neurological Disord: No Reproductive System Hx Reproductive Disorders: No Sexually Transmitted Disease: No HIV/AIDS: No Genitourinary Genitourinary Disorders: Kidney Stones Gastrointestinal History of Gastrointestinal Di: No Gastrointestinal Disorders: Abdominal Hernia (umbilical hernia repaired per patient report), Gastroesophageal Reflux, Polyps Musculoskeletal History of Musculoskeletal Dis: No Endocrine History of Endocrine Disorders: Yes Endocrine Disorders: Diabetes, Non-Insulin dep HEENT Loss of Vision: Denies Hearing Impairment: Denies Cancer History of Cancer: No Psychosocial History of Psychiatric Problem: No Integumentary History of Skin or Integumenta: No Blood Transfusions History of Blood Disorders: No Adverse Reaction to a Blood Tr: No (N/A) Family Medical History Family Medial History: Asthma 19 FATHER Cardiovascular disease Colon cancer G8 BROTHER Diabetes mellitus 19 FATHER 19 MOTHER G8 BROTHER Respiratory disorder 19 FATHER G8 BROTHER Review of Systems-General Constitutional: No chills, No fever EENTM: No blurred vision, No double vision Respiratory: short of breath, wheezing Cardiovascular: No chest pain, No palpitations Gastrointestinal: No abdominal pain, No constipation Genitourinary: No dysuria, No hematuria Musculoskeletal: No back pain, No joint pain Skin: No change in hair/nails; other (RLE pain/redness/weeping; LLE pain/redness) Psychiatric/Neurological: Denies Headache, Denies Seizure All Other Systems Reviewed Negative Unless Noted: Yes Physical Exam-General Problems Physical Exam Vital Signs Vital Signs - First Documented 01/06/20 01/06/20 01/06/20 12:29 12:56 21:26 Temp 36.4 Pulse 76 Resp 18 B/P (MAP) 128/76 (93) Pulse Ox 79 O2 Delivery Nasal Cannula O2 Flow Rate 2.00 FiO2 28 Capillary Refill : Less Than 3 SecondsLess Than 3 Seconds General Appearance: WD/WN, no apparent distress Eyes: Bilateral Eye Normal Inspection, Bilateral Eye EOMI HEENT: PERRL/EOMI, normal ENT inspection Neck: supple, normal inspection Respiratory: chest non-tender, no respiratory distress, no accessory muscle use, wheezing Cardiovascular: regular rate, rhythm, no murmur Peripheral Pulses: 1+ Dorsalis Pedis (R); 2+ Left Dors-Pedis (L) Gastrointestinal: non tender, soft, other (obese) Back: normal inspection, no vertebral tenderness Extremities: normal capillary refill, other (erythema, swelling, and some areas of weeping and ulceration to RLE below the knee, worse than LLE; swelling and er ythema to the left leg below the calf; capillary refill <3 seconds \distally) Neurologic/Psychiatric: no motor/sensory deficits, alert, normal mood/affect Skin: warm/dry; No pallor Lymphatic: no adenopathy Data Review Labs Laboratory Tests 01/06/20 20:10: Glucometer 185H 01/07/20 05:13: Glucometer 209H 01/07/20 05:20: White Blood Count 5.3, Red Blood Count 4.26L, Hemoglobin 13.3, Hematocrit 44, Mean Corpuscular Volume 103H, Mean Corpuscular Hemoglobin 31, Mean Corpuscular H emoglobin Concent 30L, Red Cell Distribution Width 16.3H, Platelet Count 173, Mean Platelet Volume 10.5, Immature Granulocyte % (Auto) 1, Neutrophils (%) (Auto) 91H, Lymphocytes (%) (Auto) 6L, Monocytes (%) (Auto) 2, Eosinophils (%) (Auto) 0, Basophils (%) (Auto) 0, Neutrophils # (Auto) 4.8, Lymphocytes # (Auto) 0.3L, Monocytes # (Auto) 0.1, Eosinophils # (Auto) 0.0, Basophils # (Auto) 0.0, Immature Granulocyte # (Auto) 0.0, Neutrophils % (Manual) 91, Lymphocytes % (Manual) 5, Band Neutrophils 4, Polychromasia SLIGHT, Anisocytosis SLIGHT, Blood Morphology Comment , Sodium Level 141, Potassium Level 4.9, Chloride Level 99, Carbon Dioxide Level 34H, Anion Gap 8, Blood Urea Nitrogen 19H, Creatinine 1.22, Estimat Glomerular Filtration Rate 60, BUN/Creatinine Ratio 16, Glucose Level 218H, Calcium Level 9.6, Corrected Calcium 10.1, Total Bilirubin 1.1H, Aspartate Amino Transf (AST/SGOT) 23, Alanine Aminotransferase (ALT/SGPT) 26, Alkaline Phosphatase 66, Total Protein 7.0, Albumin 3.4 01/07/20 10:44: Glucometer 264H 01/07/20 15:34: Glucometer 249H Microbiology 01/06/20 Gram Stain - Final, Resulted 01/06/20 Wound Culture - Preliminary, Resulted Staphylococcus aureus Assessment/Plan Assessment/Plan Assessment/Plan Assessment: cellulitis vs venous stasis of BLE COPD DM obesity hx smoking Plan: Doppler US of RLE planned for today Monitor labs continue medical management Clinical Quality Measures DVT/VTE Risk/Contraindication: Risk Factor Score Per Nursin RFS Level Per Nursing on Admit: 4+=Very High NAJMA JIANG DO 01/07/202048: History of Present Illness History of Present Illness History of Present Illness Consult requested by Dr. Fofana for right lower extremity cellulitis. Patient is a 64-year-old male with significant smoking history diabetes hypertension hyperlipidemia COPD and obesity. Patient has chronic wounds of his right lower extremity which he states that he used to go to wound care and got this pretty much healed up. He has been having these issues for years but the last month they began to return. The last week it has worsened. He has pain in the right lower extremity especially to the touch. The redness has intensified over the last week. He has some serous appearing drainage. Patient was also found to be hypoxic when he came into the emergency department. Movement makes breathing worse. He states that he quit smoking cigarettes approximately 6 days ago. Patient denies any nausea vomiting fever sweats chills or chest pain. Allergies and Home Medications Allergies Coded Allergies: No Known Drug Allergies (Unverified , 08/14/17) Home Medications Ascorbate Calcium 500 Mg Tablet, 500 MG PO DAILY, (Reported) Cholecalciferol (Vitamin D3) 25 Mcg Tablet, 25 MCG PO DAILY, (Reported) Furosemide 40 Mg Tablet, 40 MG PO DAILY, (Reported) Glimepiride 2 Mg Tablet, 2 MG PO DAILY, (Reported) Levothyroxine Sodium 175 Mcg Tablet, 175 MCG PO DAILY, (Reported) TAKE HALF AN HOUR BEFORE BREAKFAST Losartan Potassium 50 Mg Tablet, 50 MG PO DAILY, (Reported) Metformin HCl 1,000 Mg Tablet, 1,000 MG PO BID, (Reported) Pravastatin Sodium 40 Mg Tablet, 40 MG PO HS, (Reported) Tiotropium [place] 1 Inh Aerp, 1 PUFF INH DAILY, (Reported) Patient Home Medication List Home Medication List Reviewed: Yes Past Uffqpyo-Vyscgt-Agsjpf Hx Reviewed Nursing Assessment Reviewed/Agree w Nursing PMH: Yes Family Medical History Significant Family History: No Pertinent Family Hx Family Medial History: Asthma 19 FATHER Cardiovascular disease Colon cancer G8 BROTHER Diabetes mellitus 19 FATHER 19 MOTHER G8 BROTHER Respiratory disorder 19 FATHER G8 BROTHER Review of Systems-General Constitutional: No chills, No fever EENTM: No blurred vision, No double vision Respiratory: short of breath, wheezing Cardiovascular: No chest pain, No palpitations Gastrointestinal: No abdominal pain, No constipation Genitourinary: No dysuria, No hematuria Musculoskeletal: No back pain, No joint pain Skin: change in color; No change in hair/nails; other (RLE pain/redness/weeping; LLE pain/redness) Psychiatric/Neurological: Denies Headache, Denies Seizure All Other Systems Reviewed Negative Unless Noted: Yes (Negative excepted noted.) Physical Exam-General Problems Physical Exam General Appearance: WD/WN, no apparent distress, obese Eyes: Bilateral Eye Normal Inspection, Bilateral Eye EOMI HEENT: PERRL/EOMI, normal ENT inspection Neck: supple, normal inspection Respiratory: chest non-tender, no respiratory distress, no accessory muscle use Cardiovascular: regular rate, rhythm, no JVD Peripheral Pulses: 1+ Dorsalis Pedis (R); 2+ Left Dors-Pedis (L) Gastrointestinal: non tender, soft, other (obese) Rectal: deferred Back: normal inspection, no vertebral tenderness Extremities: other (erythema, swelling, and some areas of weeping and ulceration to RLE below the knee, worse than LLE; swelling and erythema to the left leg below the calf; capillary refill <3 seconds \distally) Neurologic/Psychiatric: no motor/sensory deficits, alert, normal mood/affect Skin: other (Erythema and superficial ulcerations to right lower extremity and appearance of chronic venous stasis ) Lymphatic: no adenopathy Assessment/Plan Assessment/Plan Assessment/Plan cellulitis vs venous stasis of BLE COPD DM obesity hx smoking Doppler US of RLE planned for today Monitor labs continue medical management wound care tight glucose control no surgical intervention Supervisory-Addendum Brief Verification & Attestation Participated in pt care: history, MDM, physical Personally performed: exam, history, MDM, supervision of care Care discussed with: Medical Student Procedures: n/a Results interpretation: Verified all documentation Verification and Attestation of Medical Student E/M Service A medical student performed and documented this service in my presence. I reviewed and verified all information documented by the medical student and made modifications to such information, when appropriate. I personally performed the physical exam and medical decision making. Najma Jiang, Jan 07, 2020,20:52 ANA LAFLEUR MED STUDENT Jan 07, 2020 17:06 NAJMA JIANG DO Jan 07, 2020 20:49
[2020-01-07] MEDS: ENOXAPARIN 40 MG/0.4 ML (LOVENOX) SYR SC SCH (17:53)
--- NOTE | 2020-01-07 18:16 | NUR ---
DRESSING APPLIED TO RLE, AQUACEL AG/KERLIX/TAPE
[2020-01-07 19:18] VITALS: BP 133/64
[2020-01-07] MEDS: MONTELUKAST 10 MG (SINGULAIR) TAB PO SCH (20:39)
[2020-01-08] VITALS (16 sets, daily range): BP systolic 113–168; BP diastolic 58–90
[2020-01-08] MEDS: PIPERACILLIN/TAZO 4.5 GM/NS 100 ML IV SCH ×6 (01:08→17:00)
[2020-01-08] MEDS: HYDROcodone/APAP 5 MG/325 MG (LORTAB) TAB PO PRN ×4 (03:36→23:03)
[2020-01-08] MEDS ORDERED: TROUGH ORDER-PHARMACY XX NR ×2 (05:30→15:00)
[2020-01-08] MEDS: VANCOMYCIN 2000 MG/NS 500 ML IVPB IV SCH ×2 (05:49)
[2020-01-08] MEDS: inSUlin ASPART (NovoLOG) 1 UNIT/0.01 ML (CHARGE PER UNIT) SC SCH ×4 (05:50→21:30)
[2020-01-08] MEDS: methylPREDNISolone 40 MG/ML (Solu-MEDROL) VIAL IV SCH ×2 (06:24→18:35)
[2020-01-08] MEDS: RT-ALBUTEROL/IPRATROPIUM 3 ML (DUONEB) VIAL INH SCH ×3 (07:10→14:11)
[2020-01-08] MEDS: ADVAIR HFA 115/21 MCG INHALER 8 GM IH SCH ×2 (07:11→19:46)
--- NOTE | 2020-01-08 07:45 | NUR ---
dressing changed to LLE after assessment with Dr. Leger. aquacel AG+applied to open, bleeding, and serous oozing areas, after washing with NS and dried. Kerlix applied over aquacel. Pt states, "I don't understand why it isn't healing, I was doing this same thing at home." Wound healing education shared to pt, enc. patient to keep legs elevated to help reduce edema, increase protein intake, keeping blood sugars in healthy range, keeping wound bed clean and dry, reach out to doctor when unable to complete these tasks. patient then states, "I really sat at my table quite a bit, I don't think I've been putting my feet up like I should." Explained to patient how to do this while in hospital, encouraged with examples of how to put feet up high at home. pt voiced understanding.
[2020-01-08] MEDS: SENNA W/DOCUSATE (SENOKOT S) TABLET PO SCH ×2 (08:27→20:53)
[2020-01-08 11:00] LABS: BASOPHILS % (AUTO) 0 % (0-10); EOSINOPHILS % (AUTO) 0 % (0-10); HEMATOCRIT 46 % (40-54); HEMOGLOBIN 13.3 g/dL (13.3-17.7); LYMPHOCYTES # (AUTO) 0.7 10^3/uL (1.0-4.0); LYMPHOCYTES % (AUTO) 9 % (12-44); MEAN CORPUSCULAR HEMOGLOBIN 31 pg (25-34); MEAN CORPUSCULAR HGB CONC 29 g/dL (32-36); MEAN CORPUSCULAR VOLUME 107 fL (80-99); MEAN PLATELET VOLUME 10.5 fL (9.0-12.2); MONOCYTES # (AUTO) 0.6 10^3/uL (0.0-1.0); MONOCYTES % (AUTO) 8 % (0-12); NEUTROPHILS # (AUTO) 6.2 10^3/uL (1.8-7.8); NEUTROPHILS % (AUTO) 83 % (42-75); PLATELET COUNT 193 10^3/uL (130-400); WHITE BLOOD COUNT 7.5 10^3/uL (4.3-11.0)
[2020-01-08 11:07] LABS: ALBUMIN 3.5 GM/DL (3.2-4.5)
[2020-01-08 11:08] LABS: CHLORIDE 100 MMOL/L (98-107); POTASSIUM 5.1 MMOL/L (3.6-5.0); SODIUM 142 MMOL/L (135-145)
[2020-01-08 11:10] LABS: GLUCOSE 136 MG/DL (70-105)
[2020-01-08 11:11] LABS: CARBON DIOXIDE 33 MMOL/L (21-32)
[2020-01-08 11:12] LABS: BILIRUBIN,TOTAL 0.8 MG/DL (0.1-1.0)
[2020-01-08 11:13] LABS: ALKALINE PHOSPHATASE 59 U/L (40-136); CREATININE SERUM 1.14 MG/DL (0.60-1.30); GFR ESTIMATED > 60
[2020-01-08 11:15] LABS: BUN/CREATININE RATIO 17
[2020-01-08 11:16] LABS: ALANINE AMINOTRANSFERASE 23 U/L (0-55)
[2020-01-08 11:42] LABS: ABG BASE EXCESS 9.9 MMOL/L (-2.5-2.5); ABG OXYGEN SATURATION 84 % (94-100); ABG PO2 50 MMHG (79-93); ABG TCO2 39.6 MMOL/L (21.0-31.0); ALLENS TEST YES-POS; INSPIRED O2 4L; PATIENT TEMP 35.7; VENTILATOR NO
[2020-01-08 11:52] LABS: ABG PCO2 81 MMHG (35-45); ABG PH 7.27 (7.37-7.43)
--- NOTE | 2020-01-08 11:54 | NUR ---
CRITICAL ABG RESULTS SENT TO DR BARFIELD
--- NOTE | 2020-01-08 12:23 | Pulmonary Consultation ---
History of Present Illness History of Present Illness Date Seen by Provider: Jan 08, 2020 Time Seen by Provider: 12:18 Date of Admission History of Present Illness 64yo presented to ED secondary to worsening LE edema and erythema. pt was found to be hypoxic on admission with Sp02 of 79%. Pt was admitted to 4th floor. ABG shows acute respiratory acidosis with PH of 7.27 and C02 of 81. Pt is a full code. I discussed with Dr. Fofana and we will transfer pt to ICU. He saw wound care 1 year ago. Denies fevers or chills. Allergies and Home Medications Allergies Coded Allergies: No Known Drug Allergies (Unverified , 08/14/17) Home Medications Ascorbate Calcium 500 Mg Tablet, 500 MG PO DAILY, (Reported) Cholecalciferol (Vitamin D3) 25 Mcg Tablet, 25 MCG PO DAILY, (Reported) Furosemide 40 Mg Tablet, 40 MG PO DAILY, (Reported) Glimepiride 2 Mg Tablet, 2 MG PO DAILY, (Reported) Levothyroxine Sodium 175 Mcg Tablet, 175 MCG PO DAILY, (Reported) TAKE HALF AN HOUR BEFORE BREAKFAST Losartan Potassium 50 Mg Tablet, 50 MG PO DAILY, (Reported) Metformin HCl 1,000 Mg Tablet, 1,000 MG PO BID, (Reported) Pravastatin Sodium 40 Mg Tablet, 40 MG PO HS, (Reported) Tiotropium [place] 1 Inh Aerp, 1 PUFF INH DAILY, (Reported) Past Mabcdzf-Szglvv-Carwrl Hx Past Med/Social Hx: Reviewed Nursing Past Med/Soc Hx, Reviewed and Corrections made Patient Social History Alcohol Use: Denies Use Recreational Drug Use: No Smoking Status: Former Smoker (patient reports 1.5 PPD x 35 years, quit 6 days ago per patient report) Type Used: Cigarettes Recent Foreign Travel: No Contact w/Someone Who Travel: No Recent Infectious Disease Expo: No Recent Hopitalizations: No Immunizations Up To Date Date of Pneumonia Vaccine: Jun 18, 2017 Date of Influenza Vaccine: Dec 18, 2016 Seasonal Allergies Seasonal Allergies: Yes Past Medical History Surgeries: Yes (UMBILICAL HERNIA) Respiratory: Yes Asthma, Sleep Apnea, COPD Currently Using CPAP: No (state he hasn't used CPAP in about 2 years) Currently Using BIPAP: No Cardiac: Yes High Cholesterol, Hypertension, Irregular Heartbeat Neurological: No Reproductive Disorders: No Sexually Transmitted Disease: No HIV/AIDS: No Kidney Stones Gastrointestinal: No Abdominal Hernia (umbilical hernia repaired per patient report), Gastroesophageal Reflux, Polyps Musculoskeletal: No Endocrine: Yes Diabetes, Non-Insulin dep Loss of Vision: Denies Hearing Impairment: Denies Cancer: No Psychosocial: No Integumentary: No Blood Disorders: No Adverse Reaction/Blood Tranf: No (N/A) Family Medical History Asthma 19 FATHER Cardiovascular disease Colon cancer G8 BROTHER Diabetes mellitus 19 FATHER 19 MOTHER G8 BROTHER Respiratory disorder 19 FATHER G8 BROTHER No Pertinent Family Hx Sepsis Event Evaluation Height, Weight, BMI Height: 6'0.00" Weight: 281lbs. 0.0oz. 127.337322qz; 38.06 BMI Method: Exam Exam Vital Signs Date Time Temp Pulse Resp B/P (MAP) Pulse Ox O2 Delivery O2 Flow Rate FiO2 01/08/20 12:00 35.7 67 22 122/58 (79) 90 Nasal Cannula 3.00 01/08/20 10:31 92 Nasal Cannula 4.00 01/08/20 08:00 36.5 63 20 128/61 (83) 90 Nasal Cannula 3.00 01/08/20 08:00 Nasal Cannula 4.00 01/08/20 07:10 92 Nasal Cannula 4.00 01/08/20 04:00 36.6 65 20 113/68 (83) 95 Nasal Cannula 3.50 01/08/20 00:00 36.4 75 20 131/65 (87) 94 Nasal Cannula 3.50 01/07/20 20:33 94 Nasal Cannula 3.00 01/07/20 20:00 Nasal Cannula 4.00 01/07/20 19:18 36.5 74 20 133/64 (87) 94 Nasal Cannula 3.00 01/07/20 15:32 36.4 73 18 116/64 (81) 97 Nasal Cannula 3.00 01/07/20 14:13 94 Nasal Cannula 3.00 I & O 01/08/20 07:00 Intake Total 1760 ml Balance 1760 ml Height & Weight Height: 6'0.00" Weight: 281lbs. 0.0oz. 127.187289gv; 38.06 BMI Method: General Appearance: No Apparent Distress, Chronically ill HEENT: PERRL/EOMI, Pharynx Normal Neck: Normal Inspection, Non Tender Respiratory: Crackles, Decreased Breath Sounds Cardiovascular: Regular Rate, Rhythm Capillary Refill: Less Than 3 Seconds Peripheral Pulses: 1+ Dorsalis Pedis (R); 2+ Left Dors-Pedis (L) Gastrointestinal: non tender, soft, other (obese) Extremity: Inflammation (RLE), Pedal Edema (RLE), Swelling (RLE) Neurologic/Psychiatric: Alert Skin: Erythema (RLE warm, red, weeping, edematous) Lymphatic: No Adenopathy Results Lab Laboratory Tests 01/07/20 05:20 01/08/20 04:55 Assessment/Plan Assessment/Plan Acute respiratory failure -Start BiPAP -Check PCT and LA -Check COVID, influenza -urine strep and legionella ag -Solumedrol -Transfer to ICU atelectasis and infiltrate per CXR -Continue Zosyn for now Hyperkalemia -Recheck labs INES HART DO Jan 08, 2020 12:23
--- NOTE | 2020-01-08 12:29 | NUR ---
PT BEING TRANSFERRED TO ICU BED #6, REPORT CALLED TO MARTY ROBOT TECHNICIAN
--- NOTE | 2020-01-08 12:53 | Progress Note - Hospitalist ---
REMEDIOS SPARKS MED STUDENT 01/08/20 1253: Subjective HPI/CC On Admission Date Seen by Provider: Jan 08, 2020 Time Seen by Provider: 08:45 CC: Right leg pain HPI: This is a 64yoWM clinic Pt of [facility] who presents to the ER with right lower extremity cellulitis with drainage, Dr. Mendez was consulted. Pt underwear venous-Doppler showing no evidence of DVT, he will be restarted on home medication and maintained on broad-spectrum antibiotics along with IV steroids for exacerbation of COPD with hypoxia. He continues to smoke about 1.5 packs per day. Subjective/Events-last exam Patient reports he's feeling better today. Reports his pain in the RLE has decreased quite a lot. Reports pain is currently at a 3/10. He also thinks the swelling and redness is decreased slightly from yesterday. Reports he's still mildly short of breath at rest, but that's his norm. Reports he still has a nonproductive cough. Tolerating po intake well without nausea, vomiting, or diarrhea. Denies chest pain, fever, and chills. Review of Systems General: No Chills, No Night Sweats HEENT: No Head Aches, No Visual Changes Pulmonary: No Dyspnea, No Cough Cardiovascular: No: Chest Pain, Palpitations Gastrointestinal: No: Nausea, Vomiting, Abdominal Pain Genitourinary: No Dysuria, No Frequency Musculoskeletal: No: neck pain, shoulder pain Neurological: No: Weakness, Numbness Objective Exam Vital Signs Vital Signs Date Time Temp Pulse Resp B/P (MAP) Pulse Ox O2 Delivery O2 Flow Rate FiO2 01/08/20 12:00 35.7 67 22 122/58 (79) 90 Nasal Cannula 3.00 01/06/20 21:26 28 Capillary Refill : Less Than 3 SecondsLess Than 3 Seconds General Appearance: No Apparent Distress, WD/WN HEENT: PERRL/EOMI, Pharynx Normal Neck: Normal Inspection, Non Tender Respiratory: Chest Non Tender, No Accessory Muscle Use, No Respiratory Distress, Decreased Breath Sounds, Wheezing Cardiovascular: No Murmur, Normal Peripheral Pulses Gastrointestinal: Normal Bowel Sounds, Non Tender, Soft; No Distended, No Guarding Rectal: Deferred Back: Normal Inspection, No Vertebral Tenderness Extremity: Normal Capillary Refill, No Calf Tenderness, Pedal Edema (RLE edema tous, red, warm, weeping serous fluid) Neurologic/Psychiatric: Alert, Oriented x3, Normal Mood/Affect Skin: Erythema, Other (RLE edematous, red, weeping serous fluid) Lymphatic: No Adenopathy Results/Procedures Lab Laboratory Tests 01/08/20 04:55 Patient resulted labs reviewed. Imaging: Reviewed Imaging Report Assessment/Plan Assessment and Plan Assess & Plan/Chief Complaint Hypoxia COPD exacerbation Right lower extrem cellulitis 1. Continue vancomycin and Zosyn 2. Oxygen via NC, wean as tolerated 3. Scheduled Duoneb and PRN 4. Continue Solumedrol IV 5. Lovenox for DVT prophylaxis 6. Monitor glucoses, treat per sliding scale 7. Continue pain management with lortab 8. General surgery following Clinical Quality Measures DVT/VTE Risk/Contraindication: Risk Factor Score Per Nursin RFS Level Per Nursing on Admit: 4+=Very High SHANNA BARFIELD DO 01/09/20 0700: Subjective Subjective/Events-last exam Patient difficult to rouse ABG ordered revealing CO2 narcosis ICU transfer initiated and updated Dr Farr Review of Systems General: Fatigue Pulmonary: Dyspnea Objective Exam General Appearance: No Apparent Distress, WD/WN, Chronically ill Respiratory: No Accessory Muscle Use, No Respiratory Distress, Decreased Breath Sounds Cardiovascular: Regular Rate, Rhythm Assessment/Plan Assessment and Plan Assess & Plan/Chief Complaint Transfer to ICU Supervisory-Addendum Brief Verification & Attestation Participated in pt care: history, MDM, physical Personally performed: exam, history, MDM, supervision of care Care discussed with: Medical Student Procedures: n/a Results interpretation: Verified all documentation Verification and Attestation of Medical Student E/M Service A medical student performed and documented this service in my presence. I reviewed and verified all information documented by the medical student and made modifications to such information, when appropriate. I personally performed the physical exam and medical decision making. Shanna Barfield, Jan 09, 2020,06:59 REMEDIOS SPARKS MED STUDENT Jan 08, 2020 12:53 SHANNA BARFIELD DO Jan 09, 2020 07:00
[2020-01-08 12:58] LABS: BASOPHILS % (AUTO) 0 % (0-10); EOSINOPHILS % (AUTO) 0 % (0-10); HEMATOCRIT 44 % (40-54); HEMOGLOBIN 13.2 g/dL (13.3-17.7); LYMPHOCYTES # (AUTO) 0.4 10^3/uL (1.0-4.0); LYMPHOCYTES % (AUTO) 5 % (12-44); MEAN CORPUSCULAR HEMOGLOBIN 31 pg (25-34); MEAN CORPUSCULAR HGB CONC 30 g/dL (32-36); MEAN CORPUSCULAR VOLUME 104 fL (80-99); MEAN PLATELET VOLUME 9.9 fL (9.0-12.2); MONOCYTES # (AUTO) 0.4 10^3/uL (0.0-1.0); MONOCYTES % (AUTO) 5 % (0-12); NEUTROPHILS # (AUTO) 6.6 10^3/uL (1.8-7.8); NEUTROPHILS % (AUTO) 90 % (42-75); PLATELET COUNT 180 10^3/uL (130-400); WHITE BLOOD COUNT 7.4 10^3/uL (4.3-11.0)
[2020-01-08 13:06] LABS: CHLORIDE 99 MMOL/L (98-107); POTASSIUM 5.3 MMOL/L (3.6-5.0); SODIUM 139 MMOL/L (135-145)
[2020-01-08 13:08] LABS: CALCIUM 10.2 MG/DL (8.5-10.1); GLUCOSE 205 MG/DL (70-105)
[2020-01-08 13:10] LABS: CARBON DIOXIDE 33 MMOL/L (21-32)
[2020-01-08 13:12] LABS: CREATININE SERUM 1.18 MG/DL (0.60-1.30); GFR ESTIMATED > 60; PHOSPHORUS 3.1 MG/DL (2.3-4.7)
[2020-01-08 13:13] LABS: BUN/CREATININE RATIO 17
[2020-01-08 13:15] LABS: MAGNESIUM 2.1 MG/DL (1.6-2.4)
[2020-01-08] MEDS: ALPRAZolam 0.25 MG (XANAX) TAB PO PRN (13:39)
[2020-01-08] MEDS: ACETAMINOPHEN 500 MG TAB (TYLENOL) PO PRN (13:40)
[2020-01-08] MEDS ORDERED: ALPRAZolam 0.5 MG (XANAX) TAB PO PRN (13:45)
--- NOTE | 2020-01-08 15:27 | Progress Note - Surgery ---
ANA LAFLEUR MED STUDENT 01/08/20 1527: Subjective Date Seen by a Provider: Jan 08, 2020 Time Seen by a Provider: 07:00 Subjective/Events-last exam Pt has no new complaints. States he feels like his legs are about the same as yesterday. No problems with eating, drinking, BM's, or urination. RLE doppler US yesterday showed no evidence of DVT, but veins were difficult to visualize. WBC 7.5 today from 5.3 yesterday. Potassium mildly elevated at 5.1. Focused Exam Lactate Level 01/08/20 12:47: Lactic Acid Level 1.05 Lactic Acid Level Laboratory Tests Test 01/08/20 12:47 Lactic Acid Level 1.05 MMOL/L (0.50-2.00) Objective Exam Vital Signs Date Time Temp Pulse Resp B/P (MAP) Pulse Ox O2 Delivery O2 Flow Rate FiO2 01/08/20 12:52 65 01/08/20 12:45 64 13 154/70 (98) NIV Bilevel 35.00 01/08/20 12:00 35.7 67 22 122/58 (79) 90 Nasal Cannula 3.00 01/08/20 10:31 92 Nasal Cannula 4.00 01/08/20 08:00 36.5 63 20 128/61 (83) 90 Nasal Cannula 3.00 01/08/20 08:00 Nasal Cannula 4.00 01/08/20 07:10 92 Nasal Cannula 4.00 01/08/20 04:00 36.6 65 20 113/68 (83) 95 Nasal Cannula 3.50 01/08/20 00:00 36.4 75 20 131/65 (87) 94 Nasal Cannula 3.50 01/07/20 20:33 94 Nasal Cannula 3.00 01/07/20 20:00 Nasal Cannula 4.00 01/07/20 19:18 36.5 74 20 133/64 (87) 94 Nasal Cannula 3.00 01/07/20 15:32 36.4 73 18 116/64 (81) 97 Nasal Cannula 3.00 I & O 01/08/20 07:00 Intake Total 1760 ml Balance 1760 ml General Appearance: No Apparent Distress, WD/WN HEENT: PERRL/EOMI, Pharynx Normal Neck: Normal Inspection, Non Tender Respiratory: Lungs Clear, No Accessory Muscle Use, No Respiratory Distress; No Wheezing Cardiovascular: Regular Rate, Rhythm, No Murmur Peripheral Pulses: 1+ Dorsalis Pedis (R); 2+ Left Dors-Pedis (L) Gastrointestinal: non tender, soft, other (obese) Extremity: Other (RLE is wrapped with gauze and is erythematous, tender, and swollen; LLE is erythematous and swollen, but to a lesser degree than RLE; capillary refill of RLE is 3 seconds, LLE is 2 seconds) Neurologic/Psychiatric: Alert, Oriented x3, Normal Mood/Affect Skin: No Jaundice; Other (pt's back is damp with sweat, but states he thinks the room is warm) Lymphatic: No Adenopathy Results Lab Laboratory Tests 01/07/20 15:34: Glucometer 249H 01/07/20 20:30: Glucometer 179H 01/08/20 04:55: White Blood Count 7.5, Red Blood Count 4.27L, Hemoglobin 13.3, Hematocrit 46, Mean Corpuscular Volume 107H, Mean Corpuscular Hemoglobin 31, Mean Corpuscular Hemoglobin Concent 29L, Red Cell Distribution Width 16.4H, Platelet Count 193, Mean Platelet Volume 10.5, Immature Granulocyte % (Auto) 0, Neutrophils (%) (Auto) 83H, Lymphocytes (%) (Auto) 9L, Monocytes (%) (Auto) 8, Eosinophils (%) (Auto) 0, Basophils (%) (Auto) 0, Neutrophils # (Auto) 6.2, Lymphocytes # (Auto) 0.7L, Monocytes # (Auto) 0.6, Eosinophils # (Auto) 0.0, Basophils # (Auto) 0.0, Immature Granulocyte # (Auto) 0.0, Sodium Level 142, Potassium Level 5.1H, Chloride Level 100, Carbon Dioxide Level 33H, Anion Gap 9, Blood Urea Nitrogen 19H, Creatinine 1.14, Estimat Glomerular Filtration Rate > 60, BUN/Creatinine Ratio 17, Glucose Level 136H, Calcium Level 10.0, Corrected Calcium 10.4H, Total Bilirubin 0.8, Aspartate Amino Transf (AST/SGOT) 22, Alanine Aminotransferase (ALT/SGPT) 23, Alkaline Phosphatase 59, Total Protein 7.0, Albumin 3.5, Vancomycin Level Trough 24.1H 01/08/20 05:18: Glucometer 95 01/08/20 11:15: Glucometer 229H 01/08/20 11:35: Blood Gas Puncture Site LR, Blood Gas Patient Temperature 35.7, Arterial Blood pH 7.27*L, Arterial Blood Partial Pressure CO2 81*H, Arterial Blood Partial Pres sure O2 50L, Arterial Blood HCO3 37H, Arterial Blood Total CO2 39.6H, Arterial Blood Oxygen Saturation 84L, Arterial Blood Base Excess 9.9H, Gabriele Test YES- POS, Blood Gas Ventilator Setting NO, Blood Gas Inspired Oxygen 4L 01/08/20 12:47: White Blood Count 7.4, Red Blood Count 4.23L, Hemoglobin 13.2L, Hematocrit 44, Mean Corpuscular Volume 104H, Mean Corpuscular Hemoglobin 31, Mean Corpuscular Hemoglobin Concent 30L, Red Cell Distribution Width 16.4H, Platelet Count 180, Mean Platelet Volume 9.9, Immature Granulocyte % (Auto) 0, Neutrophils (%) (Auto) 90H, Lymphocytes (%) (Auto) 5L, Monocytes (%) (Auto) 5, Eosinophils (%) (Auto) 0, Basophils (%) (Auto) 0, Neutrophils # (Auto) 6.6, Lymphocytes # (Auto) 0.4L, Monocytes # (Auto) 0.4, Eosinophils # (Auto) 0.0, Basophils # (Auto) 0.0, Immature Granulocyte # (Auto) 0.0, Sodium Level 139, Potassium Level 5.3H, Chloride Level 99, Carbon Dioxide Level 33H, Anion Gap 7, Blood Urea Nitrogen 20H, Creatinine 1.18, Estimat Glomerular Filtration Rate > 60, BUN/Creatinine Ratio 17, Glucose Level 205H, Lactic Acid Level 1.05, Calcium Level 10.2H, Phosphorus Level 3.1, Magnesium Level 2.1, Procalcitonin 0.06 01/08/20 13:40: Microbiology 01/08/20 Influenza Types A,B Antigen (TACOS) - Final, Complete 01/06/20 Gram Stain - Final, Complete 01/06/20 Wound Culture - Final, Complete Staphylococcus aureus Assessment/Plan Assessment/Plan Assessment/Plan cellulitis vs venous stasis of BLE COPD DM obesity hx smoking Monitor labs continue medical management wound care tight glucose control no surgical intervention Clinical Quality Measures DVT/VTE Risk/Contraindication: Risk Factor Score Per Nursin RFS Level Per Nursing on Admit: 4+=Very High NAJMA MENDEZ DO 01/09/20 1427: Subjective Subjective/Events-last exam Patient worsening breathing. Requiring bipap. Transferred to ICU. Lower legs no change. Denies n/v fever chills chest pain. Objective Exam General Appearance: No Apparent Distress, WD/WN HEENT: PERRL/EOMI Respiratory: Chest Non Tender, No Accessory Muscle Use, Other (slightly labored breathing) Cardiovascular: Regular Rate, Rhythm, No JVD Gastrointestinal: non tender, soft Neurologic/Psychiatric: Alert, Normal Mood/Affect Skin: No Jaundice; Other (right lower extremity erythematous superficial ulce rations) Lymphatic: No Adenopathy Assessment/Plan Assessment/Plan Assessment/Plan cellulitis vs venous stasis of BLE COPD DM obesity hx smoking Monitor labs continue medical management wound care tight glucose control no surgical intervention Supervisory-Addendum Brief Verification & Attestation Participated in pt care: history, MDM, physical Personally performed: exam, history, MDM, supervision of care Care discussed with: Medical Student Procedures: n/a Results interpretation: Verified all documentation Verification and Attestation of Medical Student E/M Service A medical student performed and documented this service in my presence. I reviewed and verified all information documented by the medical student and made modifications to such information, when appropriate. I personally performed the physical exam and medical decision making. Najma Mendez, Jan 08, 2020,14:27 ANA LAFLEUR MED STUDENT Jan 08, 2020 15:27 NAJMA MENDEZ DO Jan 09, 2020 14:27
[2020-01-08] MEDS ORDERED: FUROSEMIDE 40 MG/4 ML INJ (LASIX) IVP NR (15:45)
[2020-01-08 15:50] LABS: ABG BASE EXCESS 10.7 MMOL/L (-2.5-2.5); ABG OXYGEN SATURATION 97 % (94-100); ABG PO2 83 MMHG (79-93); ABG TCO2 39.4 MMOL/L (21.0-31.0)
[2020-01-08 15:51] LABS: ALLENS TEST YES-POS; INSPIRED O2 35%; VENTILATOR NO
[2020-01-08 15:52] LABS: PATIENT TEMP 36.4
[2020-01-08 15:53] LABS: BILIRUBIN,URINE NEGATIVE (NEGATIVE); CLARITY,URINE CLEAR; COLOR,URINE YELLOW; GLUCOSE, URINE (UA) NEGATIVE (NEGATIVE); KETONES,URINE NEGATIVE (NEGATIVE); LEUKOCYTE ESTERASE ,URINE NEGATIVE (NEGATIVE); NITRITE,URINE NEGATIVE (NEGATIVE); PROTEIN,URINE TRACE (NEGATIVE)
[2020-01-08 15:56] LABS: ABG PH 7.32 (7.37-7.43)
[2020-01-08 15:57] LABS: ABG PCO2 74 MMHG (35-45)
[2020-01-08 16:00] LABS: BACTERIA,URINE NEGATIVE /HPF; RBC,URINE RARE /HPF; SQUAMOUS EPITHELIAL CELL,UR RARE /HPF; WBC,URINE RARE /HPF
[2020-01-08] MEDS ORDERED: VANCOMYCIN 2000 MG/NS 500 ML IVPB IV SCH ×2 (16:00)
[2020-01-08 16:04] LABS: AMPHETAMINE SCREEN, URINE NEGATIVE (NEGATIVE); BARBITURATE SCREEN URINE NEGATIVE (NEGATIVE); BENZODIAZEPINES SCREEN URINE NEGATIVE (NEGATIVE); CANNABINOID SCREEN, URINE NEGATIVE (NEGATIVE); COCAINE SCREEN URINE NEGATIVE (NEGATIVE); METHADONE STAT NEGATIVE (NEGATIVE); METHAMPHETAMINE SCREEN URINE S NEGATIVE (NEGATIVE); OPIATE SCREEN URINE POSITIVE (NEGATIVE); OXYCODONE STAT NEGATIVE (NEGATIVE); PROPOXYPHENE STAT NEGATIVE (NEGATIVE); TRICYCLIC ANTIDEPRESSANTS SCRE NEGATIVE (NEGATIVE)
[2020-01-08] MEDS ORDERED: RT-ALBUTEROL INHALER HFA (VENTOLIN HFA) 18 GM IH PRN (18:00)
[2020-01-08] MEDS ORDERED: RT-ALBUTEROL INHALER HFA (VENTOLIN HFA) 18 GM IH SCH (18:00)
[2020-01-08] MEDS: ENOXAPARIN 40 MG/0.4 ML (LOVENOX) SYR SC SCH (18:36)
--- NOTE | 2020-01-08 18:53 | Wound Care Assessment ---
Wound Care Assessment Date Seen by Provider: Jan 08, 2020 Time Seen by Provider: 07:45 Chief Complaint R calf ulcers. HPI The patient is a 64 year old male with long-standing bilateral venous insufficiency, and a month-long history of ulceration of the R calf. These wounds are superficial, and silver alginate dressings are ordered. Will follow- up as an outpatient is [facility]. He is urged to elevate. Past Medical History: Admits Diabetes Type II, Admits Heart Disease (COPD, tobacco abuse.) Smoking Status: Former Smoker (patient reports 1.5 PPD x 35 years, quit 6 days ago per patient report) Recreational Drug Use: No Alcohol Use: Denies Use Review of Systems Pulmonary: Dyspnea Cardiovascular: No: Chest Pain Exam Vital Signs Date Time Temp Pulse Resp B/P (MAP) Pulse Ox O2 Delivery O2 Flow Rate FiO2 01/08/20 18:00 66 8 166/79 (108) 96 NIV Bilevel 35.00 01/08/20 15:46 36.2 01/06/20 21:26 28 Capillary Refill : Less Than 3 SecondsLess Than 3 Seconds General Appearance: mild distress Cardiovascular: regular rate, rhythm Respiratory: lungs clear Extremities: other (multiple superficial ulcers of R calf, larges is lateral, 8.0 x 3.0 x 0.2 cm with slough at base.) Results Laboratory Tests 01/07/20 20:30: Glucometer 179H 01/08/20 04:55: White Blood Count 7.5, Red Blood Count 4.27L, Hemoglobin 13.3, Hematocrit 46, Mean Corpuscular Volume 107H, Mean Corpuscular Hemoglobin 31, Mean Corpuscular Hemoglobin Concent 29L, Red Cell Distribution Width 16.4H, Platelet Count 193, Mean Platelet Volume 10.5, Immature Granulocyte % (Auto) 0, Neutrophils (%) (Auto) 83H, Lymphocytes (%) (Auto) 9L, Monocytes (%) (Auto) 8, Eosinophils (%) (Auto) 0, Basophils (%) (Auto) 0, Neutrophils # (Auto) 6.2, Lymphocytes # (Auto) 0.7L, Monocytes # (Auto) 0.6, Eosinophils # (Auto) 0.0, Basophils # (Auto) 0.0, Immature Granulocyte # (Auto) 0.0, Sodium Level 142, Potassium Level 5.1H, Chloride Level 100, Carbon Dioxide Level 33H, Anion Gap 9, Blood Urea Nitrogen 19H, Creatinine 1.14, Estimat Glomerular Filtration Rate > 60, BUN/Creatinine Ratio 17, Glucose Level 136H, Calcium Level 10.0, Corrected Calcium 10.4H, Total Bilirubin 0.8, Aspartate Amino Transf (AST/SGOT) 22, Alanine Aminotransferase (ALT/SGPT) 23, Alkaline Phosphatase 59, Total Protein 7.0, Albumin 3.5, Vancomycin Level Trough 24.1H 01/08/20 05:18: Glucometer 95 01/08/20 11:15: Glucometer 229H 01/08/20 11:35: Blood Gas Puncture Site LR, Blood Gas Patient Temperature 35.7, Arterial Blood pH 7.27*L, Arterial Blood Partial Pressure CO2 81*H, Arterial Blood Partial Pressure O2 50L, Arterial Blood HCO3 37H, Arterial Blood Total CO2 39.6H, Arterial Blood Oxygen Saturation 84L, Arterial Blood Base Excess 9.9H, Gabriele Test YES-POS, Blood Gas Ventilator Setting NO, Blood Gas Inspired Oxygen 4L 01/08/20 12:47: White Blood Count 7.4, Red Blood Count 4.23L, Hemoglobin 13.2L, Hematocrit 44, Mean Corpuscular Volume 104H, Mean Corpuscular Hemoglobin 31, Mean Corpuscular Hemoglobin Concent 30L, Red Cell Distribution Width 16.4H, Platelet Count 180, Mean Platelet Volume 9.9, Immature Granulocyte % (Auto) 0, Neutrophils (%) (Auto) 90H, Lymphocytes (%) (Auto) 5L, Monocytes (%) (Auto) 5, Eosinophils (%) (Auto) 0, Basophils (%) (Auto) 0, Neutrophils # (Auto) 6.6, Lymphocytes # (Auto) 0.4L, Monocytes # (Auto) 0.4, Eosinophils # (Auto) 0.0, Basophils # (Auto) 0.0, Immature Granulocyte # (Auto) 0.0, Sodium Level 139, Potassium Level 5.3H, Chloride Level 99, Carbon Dioxide Level 33H, Anion Gap 7, Blood Urea Nitrogen 20H, Creatinine 1.18, Estimat Glomerular Filtration Rate > 60, BUN/Creatinine Ratio 17, Glucose Level 205H, Lactic Acid Level 1.05, Calcium Level 10.2H, Phosphorus Level 3.1, Magnesium Level 2.1, Procalcitonin 0.06 01/08/20 13:40: 01/08/20 15:19: Vancomycin Level Trough 14.1 01/08/20 15:40: Urine Color YELLOW, Urine Clarity CLEAR, Urine pH 6.0, Urine Specific [place] 1.025H, Urine Protein TRACEH, Urine Glucose (UA) NEGATIVE, Urine Ketones NEGATIVE, Urine Nitrite NEGATIVE, Urine Bilirubin NEGATIVE, Urine Urobilinogen 0.2, Urine Leukocyte Esterase NEGATIVE, Urine RBC (Auto) NEGATIVE, Urine RBC RARE, Urine WBC RARE, Urine Squamous Epithelial Cells RARE, Urine Crystals NONE, Urine Bacteria NEGATIVE, Urine Casts NONE, Urine Mucus NEGATIVE, Urine Culture Indicated NO, Blood Gas Puncture Site LR, Blood Gas Patient Temperature 36.4, Arterial Blood pH 7.32*L, Arterial Blood Partial Pressure CO2 74*H, Arterial Blood Partial Pressure O2 83, Arterial Blood HCO3 37H, Arterial Blood Total CO2 39.4H, Arterial Blood Oxygen Saturation 97, Arterial Blood Base Excess 10.7H, Gabriele Test YES-POS, Blood Gas Ventilator Setting NO, Blood Gas Inspired Oxygen 35%, Urine Opiates Screen POSITIVEH, Urine Oxycodone Screen NEGATIVE, Urine Methadone Screen NEGATIVE, Urine Propoxyphene Screen NEGATIVE, Urine Barbiturates Screen NEGATIVE, Ur Tricyclic Antidepressants Screen NEGATIVE, Urine Phencyclidine Screen NEGATIVE, Urine Amphetamines Screen NEGATIVE, Urine Methamphetamines Screen NEGATIVE, Urine Benzodiazepines Screen NEGATIVE, Urine Cocaine Screen NEGATIVE, Urine Cannabinoids Screen NEGATIVE 01/08/20 17:04: Glucometer 109 Microbiology 01/08/20 Influenza Types A,B Antigen (TACOS) - Final, Complete 01/06/20 Gram Stain - Final, Complete 01/06/20 Wound Culture - Final, Complete Staphylococcus aureus Microbiology 01/08/20 Influenza Types A,B Antigen (TACOS) - Final, Complete Assessment/Plan/Dx 1. Bilateral venous insufficiency. 2. Partial thickness ulcers, R calf. 3. Diabetes with unknown control Plan: Silver alginate dressings ordered. Compression held until arterial evaluation available. MIN MONZON MD Jan 08, 2020 18:53
[2020-01-08] MEDS: IPRATROPIUM INHALER (ATROVENT) 12.9 GM INH SCH ×2 (19:45→23:16)
[2020-01-08] MEDS: RT-ALBUTEROL INHALER HFA (VENTOLIN HFA) 18 GM IH SCH ×2 (19:45→23:15)
[2020-01-08] MEDS: MONTELUKAST 10 MG (SINGULAIR) TAB PO SCH (20:54)
[2020-01-08] MEDS: SIMvastatin 20 MG (ZOCOR) TAB PO SCH (20:54)
[2020-01-08] MEDS ORDERED: NON-FORMULARY MEDICATION 1 EA EA (Pravastatin Sodium 40 MG) PO SCH (21:00)
[2020-01-09] VITALS (17 sets, daily range): BP systolic 140–169; BP diastolic 70–110
[2020-01-09] MEDS: PIPERACILLIN/TAZO 4.5 GM/NS 100 ML IV SCH ×6 (01:46→16:56)
[2020-01-09] MEDS: ACETAMINOPHEN 500 MG TAB (TYLENOL) PO PRN (02:28)
[2020-01-09 02:56] LABS: BASOPHILS % (AUTO) 0 % (0-10); EOSINOPHILS % (AUTO) 0 % (0-10); HEMATOCRIT 43 % (40-54); LYMPHOCYTES # (AUTO) 0.5 10^3/uL (1.0-4.0); LYMPHOCYTES % (AUTO) 9 % (12-44); MEAN CORPUSCULAR HEMOGLOBIN 31 pg (25-34); MEAN CORPUSCULAR HGB CONC 30 g/dL (32-36); MEAN CORPUSCULAR VOLUME 102 fL (80-99); MEAN PLATELET VOLUME 9.8 fL (9.0-12.2); MONOCYTES # (AUTO) 0.4 10^3/uL (0.0-1.0); MONOCYTES % (AUTO) 7 % (0-12); NEUTROPHILS # (AUTO) 4.6 10^3/uL (1.8-7.8); NEUTROPHILS % (AUTO) 84 % (42-75); PLATELET COUNT 157 10^3/uL (130-400); WHITE BLOOD COUNT 5.5 10^3/uL (4.3-11.0)
[2020-01-09 03:10] LABS: CHLORIDE 96 MMOL/L (98-107); SODIUM 140 MMOL/L (135-145)
[2020-01-09 03:11] LABS: CALCIUM 10.3 MG/DL (8.5-10.1)
[2020-01-09 03:12] LABS: GLUCOSE 151 MG/DL (70-105)
[2020-01-09 03:13] LABS: CARBON DIOXIDE 35 MMOL/L (21-32)
[2020-01-09 03:16] LABS: CREATININE SERUM 1.06 MG/DL (0.60-1.30); GFR ESTIMATED > 60; PHOSPHORUS 2.7 MG/DL (2.3-4.7)
[2020-01-09 03:17] LABS: BUN/CREATININE RATIO 21
[2020-01-09] MEDS: RT-ALBUTEROL INHALER HFA (VENTOLIN HFA) 18 GM IH SCH ×5 (03:52→19:27)
[2020-01-09] MEDS: IPRATROPIUM INHALER (ATROVENT) 12.9 GM INH SCH ×5 (03:52→19:27)
[2020-01-09] MEDS ORDERED: FUROSEMIDE 40 MG/4 ML INJ (LASIX) IVP ONE (05:30)
--- NOTE | 2020-01-09 05:30 | Pulmonary Progress Note ---
Subjective Time Seen by a Provider: 05:29 Subjective/Events-last exam Pt appears to be doing better. ABG is pending Sepsis Event Evaluation Height, Weight, BMI Height: 6'0.00" Weight: 281lbs. 0.0oz. 127.519210jx; 38.06 BMI Method: Focused Exam Lactate Level 01/08/20 12:47: Lactic Acid Level 1.05 Exam Exam Vital Signs Date Time Temp Pulse Resp B/P (MAP) Pulse Ox O2 Delivery O2 Flow Rate FiO2 01/09/20 03:55 35.00 01/09/20 03:53 60 19 88 30.00 01/09/20 01:00 60 01/09/20 00:00 36.7 01/08/20 23:18 30.00 01/08/20 23:18 37.0 01/08/20 23:16 56 20 93 30.00 01/08/20 20:00 Nasal Cannula 4.00 01/08/20 19:54 30.00 01/08/20 19:52 30.00 01/08/20 19:50 55 16 92 30.00 01/08/20 19:30 36.8 01/08/20 19:00 63 15 139/70 (93) 92 NIV Bilevel 35.00 01/08/20 19:00 63 01/08/20 18:00 66 8 166/79 (108) 96 NIV Bilevel 35.00 01/08/20 17:00 54 22 141/72 (95) 94 NIV Bilevel 35.00 01/08/20 16:00 55 14 134/71 (92) 92 NIV Bilevel 35.00 01/08/20 15:46 36.2 01/08/20 15:30 35.6 01/08/20 14:11 57 20 94 35.00 01/08/20 13:00 Nasal Cannula 4.00 01/08/20 12:52 65 01/08/20 12:45 64 13 154/70 (98) NIV Bilevel 35.00 01/08/20 12:00 60 26 95 35.00 01/08/20 12:00 35.7 67 22 122/58 (79) 90 Nasal Cannula 3.00 01/08/20 10:31 92 Nasal Cannula 4.00 01/08/20 08:00 36.5 63 20 128/61 (83) 90 Nasal Cannula 3.00 01/08/20 08:00 Nasal Cannula 4.00 01/08/20 07:10 92 Nasal Cannula 4.00 I & O 01/09/20 07:00 Intake Total 340 ml Output Total 2350 ml Balance -2010 ml Height & Weight Height: 6'0.00" Weight: 281lbs. 0.0oz. 127.220944cc; 38.06 BMI Method: General Appearance: No Apparent Distress, WD/WN HEENT: PERRL/EOMI, Pharynx Normal Neck: Normal Inspection, Non Tender Respiratory: Lungs Clear, No Accessory Muscle Use, No Respiratory Distress; No Wheezing Cardiovascular: Regular Rate, Rhythm, No Murmur Capillary Refill: Less Than 3 Seconds Peripheral Pulses: 1+ Dorsalis Pedis (R); 2+ Left Dors-Pedis (L) Gastrointestinal: non tender, soft, other (obese) Extremity: Other (RLE is wrapped with gauze and is erythematous, tender, and swollen; LLE is erythematous and swollen, but to a lesser degree than RLE; capillary refill of RLE is 3 seconds, LLE is 2 seconds) Neurologic/Psychiatric: Alert, Oriented x3, Normal Mood/Affect Skin: No Jaundice; Other (pt's back is damp with sweat, but states he thinks the room is warm) Lymphatic: No Adenopathy Results Lab Laboratory Tests 01/08/20 04:55 01/08/20 12:47 01/09/20 02:44 Assessment/Plan Assessment/Plan Acute respiratory failure -Start BiPAP -Repeat ABG -Check PCT and LA -Check COVID, influenza -urine strep and legionella ag -Solumedrol -Transfer to ICU atelectasis and infiltrate per CXR -Continue Zosyn for now Hyperkalemia -Recheck labs INES HART DO Jan 09, 2020 05:30
[2020-01-09 06:02] LABS: ABG OXYGEN SATURATION 97 % (94-100); ABG PH 7.35 (7.37-7.43); ABG PO2 90 MMHG (79-93); ABG TCO2 41.7 MMOL/L (21.0-31.0)
[2020-01-09 06:03] LABS: ALLENS TEST POSITIVE; INSPIRED O2 35; PATIENT TEMP 35.7; VENTILATOR NO
[2020-01-09 06:04] LABS: ABG PCO2 72 MMHG (35-45)
[2020-01-09] MEDS: methylPREDNISolone 40 MG/ML (Solu-MEDROL) VIAL IV SCH ×2 (06:52→18:52)
[2020-01-09] MEDS: inSUlin ASPART (NovoLOG) 1 UNIT/0.01 ML (CHARGE PER UNIT) SC SCH ×4 (06:52→20:34)
[2020-01-09] MEDS: LEVOTHYROXINE 75 MCG (LEVOTHROID) TABLET PO SCH (06:53)
[2020-01-09] MEDS: LEVOTHYROXINE 100 MCG (LEVOTHROID) TAB PO SCH (06:54)
[2020-01-09] MEDS: UMECLIDINIUM BROMIDE (INCRUSE ELLIPTA) 7'S IH SCH (08:06)
[2020-01-09] MEDS: ADVAIR HFA 115/21 MCG INHALER 8 GM IH SCH ×2 (08:06→19:27)
[2020-01-09] MEDS ORDERED: TIOTROPIUM BROMIDE (SPIRIVA) 5'S INHALER IH SCH (09:00)
[2020-01-09] MEDS ORDERED: NON-FORMULARY MEDICATION 1 EA EA (Ascorbate Calcium (Vitamin C) 500 MG) PO SCH (09:00)
[2020-01-09] MEDS ORDERED: NON-FORMULARY MEDICATION 1 EA EA (Levothyroxine Sodium 175 MCG) PO SCH (09:00)
[2020-01-09] MEDS: SENNA W/DOCUSATE (SENOKOT S) TABLET PO SCH ×2 (09:26→20:22)
[2020-01-09] MEDS: VITAMIN D3 25 MCG (1,000 UNITS) TABLET PO SCH (09:27)
[2020-01-09] MEDS: ASCORBIC ACID (VIT C) 500 MG TABLET PO SCH (09:27)
[2020-01-09] MEDS: GLIMEPIRIDE 2 MG (AMARYL) TAB PO SCH (09:27)
[2020-01-09] MEDS: HYDROcodone/APAP 5 MG/325 MG (LORTAB) TAB PO PRN ×2 (09:40→20:33)
--- NOTE | 2020-01-09 11:42 | Progress Note - Surgery ---
ANA LAFLEUR MED STUDENT 01/09/20 1142: Subjective Date Seen by a Provider: Jan 09, 2020 Time Seen by a Provider: 11:00 Subjective/Events-last exam Yesterday after pt's ABG results came back, he was moved to ICU and put on BIPAP. Today he is on 40 liters of Vapotherm. Pt states he is doing fine and has no complaints. ABG today showed pH of 7.35, pCO2 of 72, and pO2 of 90. Creatinine is 1.06 from 1.18 yesterday. COVID PCR negative today. Legionella, S. pneumoniae, and Influenza A and B antigens are negative. Wound culture shows Penicillin-resistant S. aureus. Dr. Leger saw pt yesterday and ordered silver alginate dressings. He encouraged pt to elevate his legs and will follow outpatient in wound clinic. Focused Exam Lactate Level 01/08/20 12:47: Lactic Acid Level 1.05 Objective Exam Vital Signs Date Time Temp Pulse Resp B/P (MAP) Pulse Ox O2 Delivery O2 Flow Rate FiO2 01/09/20 11:00 36.1 62 20 169/90 (116) Vapotherm 40.00 50.00 01/09/20 10:46 94 Vapotherm 40.00 50 01/09/20 10:44 94 Vapotherm 40.00 50 01/09/20 09:00 83 24 92 Nasal Cannula 6.00 01/09/20 08:08 92 Nasal Cannula 5.00 01/09/20 08:07 92 Nasal Cannula 5.00 01/09/20 08:06 92 Nasal Cannula 5.00 01/09/20 08:05 92 Nasal Cannula 5.00 01/09/20 08:00 Nasal Cannula 6.00 01/09/20 08:00 74 20 162/90 (114) 95 Nasal Cannula 6.00 01/09/20 08:00 Nasal Cannula 6.00 01/09/20 07:00 75 18 NIV Bilevel 35.00 01/09/20 07:00 36.5 NIV Bilevel 35.00 01/09/20 07:00 62 01/09/20 06:00 63 18 140/87 (104) 95 NIV Bilevel 35.00 01/09/20 05:00 64 24 160/79 (106) 93 NIV Bilevel 35.00 01/09/20 04:00 65 14 141/110 (120) NIV Bilevel 35.00 01/09/20 03:55 35.00 01/09/20 03:53 60 19 88 30.00 01/09/20 03:00 57 27 154/70 (98) NIV Bilevel 35.00 01/09/20 02:00 65 20 143/79 (100) 88 NIV Bilevel 35.00 01/09/20 01:00 60 01/09/20 01:00 54 8 150/81 (104) 93 NIV Bilevel 35.00 01/09/20 00:00 63 15 149/87 (107) 89 NIV Bilevel 35.00 01/09/20 00:00 36.7 01/08/20 23:18 30.00 01/08/20 23:18 37.0 01/08/20 23:16 56 20 93 30.00 01/08/20 23:00 75 14 149/75 (99) NIV Bilevel 35.00 01/08/20 22:00 57 8 159/77 (104) 92 NIV Bilevel 35.00 01/08/20 21:00 60 17 154/82 (106) 89 NIV Bilevel 35.00 01/08/20 20:00 66 9 137/70 (92) 100 NIV Bilevel 35.00 01/08/20 20:00 Nasal Cannula 4.00 01/08/20 19:54 30.00 01/08/20 19:52 30.00 01/08/20 19:50 55 16 92 30.00 01/08/20 19:30 36.8 01/08/20 19:00 63 15 139/70 (93) 92 NIV Bilevel 35.00 01/08/20 19:00 63 01/08/20 18:00 66 8 166/79 (108) 96 NIV Bilevel 35.00 01/08/20 17:00 54 22 141/72 (95) 94 NIV Bilevel 35.00 01/08/20 16:00 55 14 134/71 (92) 92 NIV Bilevel 35.00 01/08/20 15:46 36.2 01/08/20 15:30 35.6 01/08/20 14:11 57 20 94 35.00 01/08/20 13:00 Nasal Cannula 4.00 01/08/20 12:52 65 01/08/20 12:45 64 13 154/70 (98) NIV Bilevel 35.00 01/08/20 12:00 60 26 95 35.00 01/08/20 12:00 35.7 67 22 122/58 (79) 90 Nasal Cannula 3.00 I & O 01/09/20 07:00 Intake Total 440 ml Output Total 2900 ml Balance -2460 ml Capillary Refill : Less Than 3 SecondsLess Than 3 Seconds General Appearance: No Apparent Distress, WD/WN HEENT: PERRL/EOMI, Pharynx Normal Neck: Normal Inspection, Supple Respiratory: No Accessory Muscle Use, No Respiratory Distress Cardiovascular: Regular Rate, Rhythm, Other (pulse in right dorsalis pedis diminished, but present) Peripheral Pulses: 1+ Dorsalis Pedis (R); 2+ Left Dors-Pedis (L) Gastrointestinal: other (obese) Extremity: Other (RLE is wrapped with gauze and is erythematous, tender, and swollen; swelling is improved from yesterday; LLE is erythematous and swollen, but to a lesser degree than RLE; capillary refill of RLE is 3 seconds, LLE is 2 seconds; left food is cold, but pulses an capillary refill intact) Neurologic/Psychiatric: Alert, Oriented x3, Normal Mood/Affect Skin: Warm/Dry; No Jaundice Lymphatic: No Adenopathy Results Lab Laboratory Tests 01/08/20 12:47: White Blood Count 7.4, Red Blood Count 4.23L, Hemoglobin 13.2L, Hematocrit 44, Mean Corpuscular Volume 104H, Mean Corpuscular Hemoglobin 31, Mean Corpuscular Hemoglobin Concent 30L, Red Cell Distribution Width 16.4H, Platelet Count 180, Mean Platelet Volume 9.9, Immature Granulocyte % (Auto) 0, Neutrophils (%) (Aut o) 90H, Lymphocytes (%) (Auto) 5L, Monocytes (%) (Auto) 5, Eosinophils (%) (Auto) 0, Basophils (%) (Auto) 0, Neutrophils # (Auto) 6.6, Lymphocytes # (Auto) 0.4L, Monocytes # (Auto) 0.4, Eosinophils # (Auto) 0.0, Basophils # (Auto) 0.0, Immature Granulocyte # (Auto) 0.0, Sodium Level 139, Potassium Level 5.3H, Chloride Level 99, Carbon Dioxide Level 33H, Anion Gap 7, Blood Urea Nitrogen 20H, Creatinine 1.18, Estimat Glomerular Filtration Rate > 60, BUN/Creatinine Ratio 17, Glucose Level 205H, Lactic Acid Level 1.05, Calcium Level 10.2H, Phosphorus Level 3.1, Magnesium Level 2.1, Procalcitonin 0.06 01/08/20 13:40: Coronavirus (COVID-19)(PCR) Negative 01/08/20 15:19: Vancomycin Level Trough 14.1 01/08/20 15:40: Urine Color YELLOW, Urine Clarity CLEAR, Urine pH 6.0, Urine Specific [place] 1.025H, Urine Protein TRACEH, Urine Glucose (UA) NEGATIVE, Urine Ketones NEGATIVE, Urine Nitrite NEGATIVE, Urine Bilirubin NEGATIVE, Urine Urobilinogen 0.2, Urine Leukocyte Esterase NEGATIVE, Urine RBC (Auto) NEGATIVE, Urine RBC RARE, Urine WBC RARE, Urine Squamous Epithelial Cells RARE, Urine Crystals NONE, Urine Bacteria NEGATIVE, Urine Casts NONE, Urine Mucus NEGATIVE, Urine Culture Indicated NO, Blood Gas Puncture Site LR, Blood Gas Patient Temperature 36.4, Ar terial Blood pH 7.32*L, Arterial Blood Partial Pressure CO2 74*H, Arterial Blood Partial Pressure O2 83, Arterial Blood HCO3 37H, Arterial Blood Total CO2 39.4H, Arterial Blood Oxygen Saturation 97, Arterial Blood Base Excess 10.7H, [place] Test YES-POS, Blood Gas Ventilator Setting NO, Blood Gas Inspired Oxygen 35%, Urine Opiates Screen POSITIVEH, Urine Oxycodone Screen NEGATIVE, Urine Methadone Screen NEGATIVE, Urine Propoxyphene Screen NEGATIVE, Urine Barbiturates Screen NEGATIVE, Ur Tricyclic Antidepressants Screen NEGATIVE, Urine Phencyclidine Screen NEGATIVE, Urine Amphetamines Screen NEGATIVE, Urine Methamphetamines Screen NEGATIVE, Urine Benzodiazepines Screen NEGATIVE, Urine Cocaine Screen NEGATIVE, Urine Cannabinoids Screen NEGATIVE, Urine Legionella pneumophilia Ag Negative, Streptococcus pneumoniae Antigen Negative 01/08/20 17:04: Glucometer 109 01/08/20 21:20: Glucometer 156H 01/09/20 02:44: White Blood Count 5.5, Red Blood Count 4.20L, Hemoglobin 13.0L, Hematocrit 43, Mean Corpuscular Volume 102H, Mean Corpuscular Hemoglobin 31, Mean Corpuscular Hemoglobin Concent 30L, Red Cell Distribution Width 15.9H, Platelet Count 157, Mean Platelet Volume 9.8, Immature Granulocyte % (Auto) 0, Neutrophils (%) (Auto) 84H, Lymphocytes (%) (Auto) 9L, Monocytes (%) (Auto) 7, Eosinophils (%) (Auto) 0, Basophils (%) (Auto) 0, Neutrophils # (Auto) 4.6, Lymphocytes # (Auto) 0.5L, Monocytes # (Auto) 0.4, Eosinophils # (Auto) 0.0, Basophils # (Auto) 0.0, Immature Granulocyte # (Auto) 0.0, Sodium Level 140, Potassium Level 5.0, Chloride Level 96L, Carbon Dioxide Level 35H, Anion Gap 9, Blood Urea Nitrogen 22H, Creatinine 1.06, Estimat Glomerular Filtration Rate > 60, BUN/Creatinine Ratio 21, Glucose Level 151H, Calcium Level 10.3H, Phosphorus Level 2.7, Magnesium Level 2.0 01/09/20 05:50: Blood Gas Puncture Site RIGHT RADIAL, Blood Gas Patient Temperature 35.7, Arterial Blood pH 7.35L, Arterial Blood Partial Pressure CO2 72*H, Arterial Blood Partial Pressure O2 90, Arterial Blood HCO3 39H, Arterial Blood Total CO2 41.7H, Arterial Blood Oxygen Saturation 97, Arterial Blood Base Excess 13.0H, Gabriele Test POSITIVE, Blood Gas Ventilator Setting NO, Blood Gas Inspired Oxygen 35 01/09/20 11:24: Glucometer 185H Microbiology 01/08/20 Influenza Types A,B Antigen (TACOS) - Final, Complete 01/06/20 Gram Stain - Final, Complete 01/06/20 Wound Culture - Final, Complete Staphylococcus aureus Assessment/Plan Assessment/Plan Assessment/Plan cellulitis vs venous stasis of BLE COPD DM obesity hx smoking Monitor labs continue medical management wound care tight glucose control no surgical intervention at this time Clinical Quality Measures DVT/VTE Risk/Contraindication: Risk Factor Score Per Nursin RFS Level Per Nursing on Admit: 4+=Very High NAJMA MENDEZ DO 01/09/20 1433: Subjective Subjective/Events-last exam Breathing easier. Off bipap. Patient negative covid. Legs feel slightly better. Slightly tender. Denies n/v fever chills or chest pain. Objective Exam General Appearance: No Apparent Distress, WD/WN HEENT: PERRL/EOMI, Normal ENT Inspection Neck: Normal Inspection Respiratory: Chest Non Tender, No Accessory Muscle Use, No Respiratory Distress Cardiovascular: Regular Rate, Rhythm Gastrointestinal: non tender, soft, other (obese) Extremity: Other (RLE is wrapped with gauze and is erythematous, tender, and swollen; swelling is improved from yesterday; LLE is erythematous and swollen, but to a lesser degree than RLE; capillary refill of RLE is 3 seconds, LLE is 2 seconds; left foot slight chill, but pulses an capillary refill intact) Neurologic/Psychiatric: Alert, Oriented x3 Skin: Normal Color, Warm/Dry Lymphatic: No Adenopathy Assessment/Plan Assessment/Plan Assessment/Plan cellulitis vs venous stasis of BLE COPD DM obesity hx smoking Monitor labs continue medical management wound care tight glucose control no surgical intervention at this time Supervisory-Addendum Brief Verification & Attestation Participated in pt care: history, MDM, physical Personally performed: exam, history, MDM, supervision of care Care discussed with: Medical Student Procedures: n/a Results interpretation: Verified all documentation Verification and Attestation of Medical Student E/M Service A medical student performed and documented this service in my presence. I reviewed and verified all information documented by the medical student and made modifications to such information, when appropriate. I personally performed the physical exam and medical decision making. Najma Mendez, Jan 09, 2020,14:34 ANA LAFLEUR MED STUDENT Jan 09, 2020 11:42 NAJMA MENDEZ DO Jan 09, 2020 14:33
--- NOTE | 2020-01-09 12:17 | Physical Therapy Evaluation ---
PT Evaluation-General Medical Diagnosis Admission Date Jan 06, 2020 at 17:03 Medical Diagnosis: hypoxia Onset Date: Jan 06, 2020 Therapy Diagnosis Therapy Diagnosis: debility/weakness Height/Weight Height (Feet): 6 Height (Inches): 0.00 Weight (Pounds): 281 Weight (Ounces): 0.0 Precautions Precautions/Isolations: Standard Precautions Referral Physician: Chika Reason for Referral: Evaluation/Treatment Medical History Pertinent Medical History: COPD, DM, HTN, Smoking Additional Medical History obesity Current History ER secondary to bilateral LE edema and redness x 1 month Reviewed History: Yes Social History Home: Apartment Current Living Status: Alone Entry Into Home: Level Entry Prior Prior Level of Function SCALE: Activities may be completed with or without assistive devices. 9-Sghltrtbcg-efayygr completes the activity by him/herself with no assistance from a helper. 5-Set-up or Clean-up Assistance-helper sets up or cleans up; patient completes activity. [place] assists only prior to or following the activity. 4-Supervision or Touching Assistance-helper provides verbal cues and/or touching/steadying and/or contact guard assistance as patient completes activity. Assistance may be provided throughout the activity or intermittently. 3-Partial/Moderate Assistance-helper does LESS THAN HALF the effort. [place] lifts, holds or supports trunk or limbs, but provides less than half the effort. 2-Substantial/Maximal Assistance-helper does MORE THAN HALF the effort. [place] lifts or holds trunk or limbs and provides more than half the effort. 1-Jovshktwb-emhurq does ALL the effort. Patient does none of the effort to complete the activity. Or, the assistance of 2 or more helpers is required for the patient to complete the activity. If activity was not attempted, code reason: 7-Patient Refused. 9-Not Applicable-not attempted and the patient did not perform the activity before the current illness, exacerbation or injury. 10-Not Attempted due to Environmental Limitations-(lack of equipment, weather restraints, etc.). 88-Not Attempted due to Medical Conditions or Safety Concerns. Bed Mobility: 6 Transfers (B,C,W/C): 6 Gait: 6 Stairs: 9 Indoor Mobility (Ambulation): Independent Prior Devices Use: None PT Evaluation-Current Subjective Patient agrees to PT. No c/o. Objective Patient Orientation: Normal For Age Attachments: Oxygen (vapotherm), IV ROM/Strength ROM Lower Extremities bilateral LE WFL Strength Lower Extremities 3+/5 grossly bilateral LE Integumentary/Posture Integumentary refer to nursing notes Bowel Incontinence: No Bladder Incontinence: No Posture WFL Neuromuscular (Tone, Coordination, Reflexes) grossly intact Sensory Vision: Wears Glasses Hearing: Impaired Transfers Roll Left to Right (QC): 5 Lying to Sitting/Side of Bed(Q: 5 Sit to Stand (QC): 5 Chair/Wbq-ox-Sxqrd Xfer(QC): 5 Gait Does the Patient Walk?: Yes Mode of Locomotion: Walk Anticipated Mode of Locomotion: Walk Walk 10 feet (QC): 5 Walk 50 ft with 2 Turns(QC): 88 Walk 150 ft (QC): 88 Gait Assistive Device: None Comments/Gait Description limited due to vapotherm restrictions Balance Sitting Static: Normal Sitting Dynamic: Normal Standing Static: Fair Standing Dynamic: Fair Assessment/Needs 64 y.o. male, will benefit from skilled PT to address functional strength and mobility to improve current LOF to safely return to home at maximum LOF. 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 Time Frame: Jan 17, 2020 Roll Left & Right (QC): 6 Sit to Lying (QC): 6 Lying-Sitting on Side/Bed(QC): 6 Sit to Stand (QC): 6 Chair/Fzl-gg-Wlzmy Xfer(QC): 6 Toilet Transfer (QC): 6 Does the Patient Walk: Yes Walk 10 feet (QC): 6 Walk 50ft with 2 Turns (QC): 6 Walk 150 ft (QC): 6 PT Plan Problem List Problem List: Activity Tolerance, Functional Strength, Safety, Balance, Gait, T ransfer Treatment/Plan Treatment Plan: Continue Plan of Care Treatment Plan: Bed Mobility, Education, Functional Activity Teri, Functional Strength, Gait, Safety, Therapeutic Exercise, Transfers Treatment Duration: Jan 17, 2020 Frequency: 6 times per week Estimated Hrs Per Day: .25 hour per day Patient and/or Family Agrees t: Yes Time/GCodes Time In: 1100 Time Out: 1122 Total Billed Treatment Time: 22 Total Billed Treatment 1 visit EVModC 22 min RANJAN BLACKWOOD PT Jan 09, 2020 12:17
--- NOTE | 2020-01-09 12:29 | Progress Note - Hospitalist ---
REMEDIOS SPARKS MED STUDENT 01/09/20 1229: Subjective HPI/CC On Admission Date Seen by Provider: Jan 09, 2020 Time Seen by Provider: 12:18 CC: Right leg pain HPI: This is a 64yoWM clinic Pt of [facility] who presents to the ER with right lower extremity cellulitis with drainage, Dr. Mendez was consulted. Pt underwear venous-Doppler showing no evidence of DVT, he will be restarted on home medication and maintained on broad-spectrum antibiotics along with IV steroids for exacerbation of COPD with hypoxia. He continues to smoke about 1.5 packs per day. Subjective/Events-last exam Patient denies complaints currently. Tolerated BIPAP well over night. Currently on vapotherm and sat's doing well. He denies shortness of breath, pain, fevers, and chills. He is sitting up in the chair at bedside upon exam. He stated "I wanna get out of here and get back home, nobody is in a hurry here". Review of Systems General: No Chills, No Night Sweats HEENT: No Head Aches, No Visual Changes Pulmonary: No Dyspnea, No Cough Cardiovascular: No: Chest Pain, Palpitations Gastrointestinal: No: Nausea, Vomiting Genitourinary: No Dysuria, No Frequency Musculoskeletal: No: neck pain, shoulder pain Neurological: No: Weakness, Numbness Focused Exam Lactate Level 01/08/20 12:47: Lactic Acid Level 1.05 Objective Exam Vital Signs Vital Signs Date Time Temp Pulse Resp B/P (MAP) Pulse Ox O2 Delivery O2 Flow Rate FiO2 01/09/20 11:00 36.1 62 20 169/90 (116) Vapotherm 40.00 50.00 01/09/20 10:46 94 50 Capillary Refill : Less Than 3 SecondsLess Than 3 Seconds General Appearance: WD/WN, Anxious HEENT: PERRL/EOMI, Pharynx Normal Neck: Normal Inspection, Non Tender Respiratory: Chest Non Tender, No Accessory Muscle Use, No Respiratory Distress, Decreased Breath Sounds, Wheezing Cardiovascular: Regular Rate, Rhythm, Normal Peripheral Pulses Gastrointestinal: Normal Bowel Sounds, Non Tender, Soft; No Distended, No Guarding Rectal: Deferred Back: Normal Inspection, No Vertebral Tenderness Extremity: Normal Capillary Refill, No Calf Tenderness, Pedal Edema Neurologic/Psychiatric: Alert, Oriented x3, No Motor/Sensory Deficits Skin: Warm/Dry, Other (RLE cellulitis vs venous stasis/ LLE cool to palpation) Lymphatic: No Adenopathy Results/Procedures Lab Laboratory Tests 01/08/20 12:47 01/09/20 02:44 Patient resulted labs reviewed. Imaging: Reviewed Imaging Report Assessment/Plan Assessment and Plan Assess & Plan/Chief Complaint Hypoxia COPD exacerbation Right lower extrem cellulitis vs venous stasis 1. Continue antibiotic coverage 2. Oxygen via NC, wean as tolerated 3. Scheduled Duoneb and PRN 4. Continue Solumedrol IV 5. Lovenox for DVT prophylaxis 6. Monitor glucoses, treat per sliding scale 7. Continue pain management with lortab 8. General surgery following 9. BIPAP PRN and at night Clinical Quality Measures DVT/VTE Risk/Contraindication: Risk Factor Score Per Nursin RFS Level Per Nursing on Admit: 4+=Very High SHANNA BARFIELD DO 01/10/20 0614: Subjective Subjective/Events-last exam Pt doing a lot better Leg still causes pain but it is improved on broad spectrum antibiotics Now on Vapotherm off of biPAP for CO2 narcosis Review of Systems Musculoskeletal: leg pain Objective Exam General Appearance: No Apparent Distress, WD/WN, Chronically ill Respiratory: Decreased Breath Sounds, Wheezing Assessment/Plan Assessment and Plan Assess & Plan/Chief Complaint ICU management Supervisory-Addendum Brief Verification & Attestation Participated in pt care: history, MDM, physical Personally performed: exam, history, MDM, supervision of care Care discussed with: Medical Student Procedures: n/a Results interpretation: Verified all documentation Verification and Attestation of Medical Student E/M Service A medical student performed and documented this service in my presence. I reviewed and verified all information documented by the medical student and made modifications to such information, when appropriate. I personally performed the physical exam and medical decision making. Shanna Barfield, Jan 10, 2020,06:14 REMEDIOS SPARKS MED STUDENT Jan 09, 2020 12:29 SHANNA BARFIELD DO Jan 10, 2020 06:14
[2020-01-09] MEDS: ENOXAPARIN 40 MG/0.4 ML (LOVENOX) SYR SC SCH (18:52)
[2020-01-09] MEDS: SIMvastatin 20 MG (ZOCOR) TAB PO SCH (20:33)
[2020-01-09] MEDS: ALPRAZolam 0.25 MG (XANAX) TAB PO PRN (20:33)
[2020-01-09] MEDS: MONTELUKAST 10 MG (SINGULAIR) TAB PO SCH (20:33)
--- NOTE | 2020-01-09 21:59 | NUR ---
WHEN TRANSFERRING PT FROM THE CHAIR TO BED, THIS RN NOTICED A POOL OF BLOOD ON THE FLOOR. UPON ASSESSMENT, PT HAD BLED THROUGH HIS DRESSING ON HIS RIGHT LEG. DRESSING CHANGED AT THIS TIME. ALL NEEDS MET AT THIS TIME..
[2020-01-10] VITALS (11 sets, daily range): BP systolic 140–171; BP diastolic 70–90
[2020-01-10] MEDS: PIPERACILLIN/TAZO 4.5 GM/NS 100 ML IV SCH ×6 (01:12→16:37)
[2020-01-10] MEDS: RT-ALBUTEROL INHALER HFA (VENTOLIN HFA) 18 GM IH SCH ×7 (02:16→21:39)
[2020-01-10] MEDS: IPRATROPIUM INHALER (ATROVENT) 12.9 GM INH SCH ×7 (02:17→21:39)
[2020-01-10] MEDS: HYDROcodone/APAP 5 MG/325 MG (LORTAB) TAB PO PRN ×5 (02:17→20:18)
[2020-01-10 03:56] LABS: BASOPHILS % (AUTO) 0 % (0-10); EOSINOPHILS % (AUTO) 0 % (0-10); HEMATOCRIT 43 % (40-54); HEMOGLOBIN 13.1 g/dL (13.3-17.7); LYMPHOCYTES # (AUTO) 0.5 10^3/uL (1.0-4.0); LYMPHOCYTES % (AUTO) 11 % (12-44); MEAN CORPUSCULAR HEMOGLOBIN 31 pg (25-34); MEAN CORPUSCULAR HGB CONC 31 g/dL (32-36); MEAN CORPUSCULAR VOLUME 101 fL (80-99); MEAN PLATELET VOLUME 9.9 fL (9.0-12.2); MONOCYTES # (AUTO) 0.4 10^3/uL (0.0-1.0); MONOCYTES % (AUTO) 9 % (0-12); NEUTROPHILS # (AUTO) 3.5 10^3/uL (1.8-7.8); NEUTROPHILS % (AUTO) 81 % (42-75); PLATELET COUNT 152 10^3/uL (130-400); WHITE BLOOD COUNT 4.4 10^3/uL (4.3-11.0)
[2020-01-10 04:17] LABS: CHLORIDE 98 MMOL/L (98-107); POTASSIUM 4.6 MMOL/L (3.6-5.0); SODIUM 144 MMOL/L (135-145)
[2020-01-10 04:19] LABS: CALCIUM 10.1 MG/DL (8.5-10.1); GLUCOSE 158 MG/DL (70-105)
[2020-01-10 04:21] LABS: CARBON DIOXIDE 36 MMOL/L (21-32)
[2020-01-10 04:23] LABS: CREATININE SERUM 0.98 MG/DL (0.60-1.30); GFR ESTIMATED > 60
[2020-01-10 04:24] LABS: BUN/CREATININE RATIO 26
[2020-01-10 04:26] LABS: MAGNESIUM 2.2 MG/DL (1.6-2.4)
[2020-01-10] MEDS: inSUlin ASPART (NovoLOG) 1 UNIT/0.01 ML (CHARGE PER UNIT) SC SCH ×4 (05:08→20:10)
[2020-01-10] MEDS: LEVOTHYROXINE 100 MCG (LEVOTHROID) TAB PO SCH (06:24)
[2020-01-10] MEDS: GLIMEPIRIDE 2 MG (AMARYL) TAB PO SCH (06:24)
[2020-01-10] MEDS: LEVOTHYROXINE 75 MCG (LEVOTHROID) TABLET PO SCH (06:24)
[2020-01-10] MEDS: methylPREDNISolone 40 MG/ML (Solu-MEDROL) VIAL IV SCH ×2 (06:25→17:55)
--- NOTE | 2020-01-10 06:32 | NUR ---
THIS RN SWITCHED PT BACK TO VAPOTHERM FOR BREAKFAST AND MORNING MEDICINE AT THIS TIME. VAPOTHERM 40 LITERS 35% FIO2. RESPIRATIONS 21 WITH O2 SAT OF 94%. PT TOLERATING WELL. ALL OTHER NEEDS MET AT THIS TIME. WILL CONTINUE TO MONITOR.
--- NOTE | 2020-01-10 06:52 | Pulmonary Progress Note ---
Subjective Time Seen by a Provider: 06:51 Subjective/Events-last exam Pt was left on BiPAP through the night. Will check Stat ABG. Sepsis Event Evaluation Height, Weight, BMI Height: 6'0.00" Weight: 281lbs. 0.0oz. [id number]; 38.06 BMI Method: Focused Exam Lactate Level 01/08/20 12:47: Lactic Acid Level 1.05 Exam Exam Vital Signs Date Time Temp Pulse Resp B/P (MAP) Pulse Ox O2 Delivery O2 Flow Rate FiO2 01/10/20 06:18 36.9 71 21 153/80 (104) 95 Vapotherm 40.00 35.00 01/10/20 03:27 92 Vapotherm 40.00 30 01/10/20 03:13 36.7 59 17 140/70 (93) 90 NIV Bilevel 30.00 01/10/20 01:00 60 01/09/20 23:10 37.0 58 17 146/72 (96) 91 NIV Bilevel 30.00 01/09/20 20:17 36.8 62 20 156/70 (98) 94 Vapotherm 40.00 35.00 01/09/20 20:00 Vapotherm 40.00 35 01/09/20 19:43 67 01/09/20 19:28 92 Vapotherm 40.00 30 01/09/20 18:00 64 18 93 Vapotherm 40.00 35.00 01/09/20 17:00 37.2 74 20 144/80 (101) 94 Vapotherm 40.00 35.00 01/09/20 16:00 62 22 155/77 (103) 98 Vapotherm 40.00 30.00 01/09/20 15:52 Vapotherm 40.00 30.00 01/09/20 15:33 92 Vapotherm 40.00 30 01/09/20 15:30 94 Vapotherm 40.00 50 01/09/20 15:10 36.1 66 96 50 01/09/20 15:00 64 29 97 Vapotherm 40.00 50.00 01/09/20 14:00 71 32 161/79 (106) 96 Vapotherm 40.00 50.00 01/09/20 13:00 66 01/09/20 13:00 71 32 161/79 (106) 96 Vapotherm 40.00 50.00 11/6/20 12:00 71 25 140/76 (97) Vapotherm 40.00 50.00 01/09/20 11:00 36.1 62 20 169/90 (116) Vapotherm 40.00 50.00 01/09/20 10:46 94 Vapotherm 40.00 50 01/09/20 10:44 94 Vapotherm 40.00 50 01/09/20 09:00 83 24 92 Nasal Cannula 6.00 01/09/20 08:08 92 Nasal Cannula 5.00 01/09/20 08:07 92 Nasal Cannula 5.00 01/09/20 08:06 92 Nasal Cannula 5.00 01/09/20 08:05 92 Nasal Cannula 5.00 01/09/20 08:00 Nasal Cannula 6.00 01/09/20 08:00 74 20 162/90 (114) 95 Nasal Cannula 6.00 01/09/20 08:00 Nasal Cannula 6.00 01/09/20 07:00 75 18 NIV Bilevel 35.00 01/09/20 07:00 36.5 NIV Bilevel 35.00 01/09/20 07:00 62 I & O 01/10/20 07:00 Intake Total 2150 ml Output Total 3425 ml Balance -1275 ml Height & Weight Height: 6'0.00" Weight: 281lbs. 0.0oz. 127.817554ox; 38.06 BMI Method: General Appearance: No Apparent Distress, WD/WN, Chronically ill HEENT: PERRL/EOMI, Normal ENT Inspection Neck: Normal Inspection Respiratory: Decreased Breath Sounds, Wheezing Cardiovascular: Regular Rate, Rhythm Capillary Refill: Less Than 3 Seconds Peripheral Pulses: 1+ Dorsalis Pedis (R); 2+ Left Dors-Pedis (L) Gastrointestinal: non tender, soft, other (obese) Extremity: Other (RLE is wrapped with gauze and is erythematous, tender, and swollen; swelling is improved from yesterday; LLE is erythematous and swollen, but to a lesser degree than RLE; capillary refill of RLE is 3 seconds, LLE is 2 seconds; left foot slight chill, but pulses an capillary refill intact) Neurologic/Psychiatric: Alert, Oriented x3 Skin: Normal Color, Warm/Dry Lymphatic: No Adenopathy Results Lab Laboratory Tests 01/08/20 12:47 01/09/20 02:44 01/10/20 03:38 Assessment/Plan Assessment/Plan Acute respiratory failure - BiPAP HS -Repeat stat ABG -- If improving he can go to [facility] with tele. -Check COVID, influenza -urine strep and legionella ag -Solumedrol -Transfer to ICU atelectasis and infiltrate per CXR -Continue Zosyn for now Hyperkalemia -Recheck labs INES HART DO Jan 10, 2020 06:52
[2020-01-10] MEDS: ADVAIR HFA 115/21 MCG INHALER 8 GM IH SCH ×2 (06:53→18:49)
[2020-01-10] MEDS: UMECLIDINIUM BROMIDE (INCRUSE ELLIPTA) 7'S IH SCH (06:55)
--- NOTE | 2020-01-10 06:57 | NUR ---
THIS RN NOTIFIED RT OF STAT ABG ORDER GIVEN BY DR. HART.
[2020-01-10 07:28] LABS: ABG BASE EXCESS 15.1 MMOL/L (-2.5-2.5); ABG OXYGEN SATURATION 98 % (94-100); ABG PH 7.36 (7.37-7.43); ABG PO2 100 MMHG (79-93); ABG TCO2 43.6 MMOL/L (21.0-31.0)
[2020-01-10 07:34] LABS: ABG PCO2 74 MMHG (35-45); ALLENS TEST POSITIVE; INSPIRED O2 35% VASOTHERM; PATIENT TEMP 36.4; VENTILATOR NO
--- NOTE | 2020-01-10 07:39 | NUR ---
DR HART NOTIFIED OF ABG RESULTS. ORDER RECEIVED TO KEEP VAPOTHERM AT 40L & TURN DOWN FI02 TO 25%. BIPAP HS AND PRN.
--- NOTE | 2020-01-10 07:55 | NUR ---
PT OKAY TO TRANSFER TO [address] HART
[2020-01-10] MEDS: VITAMIN D3 25 MCG (1,000 UNITS) TABLET PO SCH (08:14)
[2020-01-10] MEDS: ASCORBIC ACID (VIT C) 500 MG TABLET PO SCH (08:22)
--- NOTE | 2020-01-10 08:24 | NUR ---
DR HART NOTIFIED OF PT 02 85-87% SINCE TURNING FI02 DOWN TO 25%. ORDER TO KEEP OXYGEN 90-92%. INCREASE FI02 TO 30%.
[2020-01-10] MEDS: SENNA W/DOCUSATE (SENOKOT S) TABLET PO SCH ×2 (08:27→20:09)
--- NOTE | 2020-01-10 08:48 | NUR ---
PT PLACED ON BIPAP AT THIS TIME D/T OXYGEN 85-88% WHILE ASLEEP.
--- NOTE | 2020-01-10 09:17 | Physical Therapy Progress Note ---
Therapy Progress Note After speaking with RN, the patient was held from PT this morning secondary to decreased O2 sat on bipap. Will continue to follow. ABBY SESAY PT Jan 10, 2020 09:17
--- NOTE | 2020-01-10 09:22 | Progress Note - Hospitalist ---
Subjective HPI/CC On Admission Date Seen by Provider: Jan 10, 2020 Time Seen by Provider: 09:18 CC: Right leg pain HPI: This is a 64yoWM clinic Pt of [facility] who presents to the ER with right lower extremity cellulitis with drainage, Dr. Mendez was consulted. Pt underwear venous-Doppler showing no evidence of DVT, he will be restarted on home medication and maintained on broad-spectrum antibiotics along with IV steroids for exacerbation of COPD with hypoxia. He continues to smoke about 1.5 packs per day. Subjective/Events-last exam Patient sleeping with BiPAP on upon awakening reporting less shortness of breath denies leg pain but concerned about the fact that he still having some drainage. He denies chills or fever. Focused Exam Lactate Level 01/08/20 12:47: Lactic Acid Level 1.05 Objective Exam Vital Signs Vital Signs Date Time Temp Pulse Resp B/P (MAP) Pulse Ox O2 Delivery O2 Flow Rate FiO2 01/10/20 07:00 65 01/10/20 06:48 94 High Flow N/C 40.00 35 01/10/20 06:18 36.9 21 153/80 (104) Capillary Refill : Less Than 3 SecondsLess Than 3 Seconds General Appearance: No Apparent Distress, Chronically ill, Obese Respiratory: Other (diminished breath sounds posteriorly without wheezes rales or rhonchi breath sounds equal bilaterally) Cardiovascular: Regular Rate, Rhythm, No Edema, No Gallop, No JVD, No Murmur, Normal Peripheral Pulses Gastrointestinal: Normal Bowel Sounds, No Organomegaly, No Pulsatile Mass, Non Tender, Soft Extremity: No Pedal Edema, Other (chronic venous insufficiency changes of the right lower extremity right leg is wrapped with evidence for lateral ulceration. There is no evidence for ascending lymphangitis no induration or pain around the wound.) Results/Procedures Lab Laboratory Tests 01/10/20 03:38 Patient resulted labs reviewed. Imaging: Reviewed Imaging Report Assessment/Plan Assessment and Plan Assess & Plan/Chief Complaint 1. Respiratory failure laboratory on admission is compatible with acute on chronic hypercapnic respiratory failure likely due to COPD exacerbation. Can't exclude the possibility of underlying sleep apnea considering body habitus contributing respiratory failure as well. Underlying all of this and the major culprit this ongoing tobaccoism discussed this with the patient and his need to quit. Steroid taper continue bronchodilator therapy and BiPAP at night and as needed during the day. 2. Right lower extremity venous insufficiency with ulceration questionable secondary cellulitis continue antibiotic therapy for now. Clinical Quality Measures DVT/VTE Risk/Contraindication: Risk Factor Score Per Nursin RFS Level Per Nursing on Admit: 4+=Very High HUSSEIN ROME MD Jan 10, 2020 09:22
[2020-01-10] MEDS ORDERED: LOSARTAN 50 MG (COZAAR) TAB PO ONE (14:15)
[2020-01-10] MEDS ORDERED: FUROSEMIDE 40 MG (LASIX) TAB PO ONE (14:15)
--- NOTE | 2020-01-10 15:01 | Progress Note - Surgery ---
Subjective Time Seen by a Provider: 14:42 Subjective/Events-last exam Pt seen and examined, thinks everything is about the same. However, he did hit his leg and it bled a lot last night. Review of Systems General: No Chills; Fatigue Pulmonary: Dyspnea, Other (on bipap) Gastrointestinal: No: Nausea, Vomiting, Abdominal Pain Focused Exam Lactate Level 01/08/20 12:47: Lactic Acid Level 1.05 Objective Exam Vital Signs Date Time Temp Pulse Resp B/P (MAP) Pulse Ox O2 Delivery O2 Flow Rate FiO2 01/10/20 12:36 58 01/10/20 12:25 36.3 82 18 171/90 (117) 93 NIV Bilevel 01/10/20 11:40 37.2 57 22 165/88 (113) 91 NIV Bilevel 01/10/20 10:35 18 92 30.00 01/10/20 10:33 NIV Bilevel 30 01/10/20 10:29 NIV Bilevel 30 01/10/20 08:48 69 20 93 30.00 01/10/20 08:10 36.6 70 22 171/88 (115) Vapotherm 40.00 35.00 01/10/20 08:00 Vapotherm 01/10/20 07:00 65 01/10/20 06:55 High Flow N/C 40.00 35 01/10/20 06:53 High Flow N/C 40.00 35 01/10/20 06:52 High Flow N/C 40.00 35 01/10/20 06:48 94 High Flow N/C 40.00 35 01/10/20 06:18 36.9 71 21 153/80 (104) 95 Vapotherm 40.00 35.00 01/10/20 03:27 92 Vapotherm 40.00 30 01/10/20 03:13 36.7 59 17 140/70 (93) 90 NIV Bilevel 30.00 01/10/20 01:00 60 01/09/20 23:10 37.0 58 17 146/72 (96) 91 NIV Bilevel 30.00 01/09/20 20:17 36.8 62 20 156/70 (98) 94 Vapotherm 40.00 35.00 01/09/20 20:00 Vapotherm 40.00 35 01/09/20 19:43 67 01/09/20 19:28 92 Vapotherm 40.00 30 01/09/20 18:00 64 18 93 Vapotherm 40.00 35.00 01/09/20 17:00 37.2 74 20 144/80 (101) 94 Vapotherm 40.00 35.00 01/09/20 16:00 62 22 155/77 (103) 98 Vapotherm 40.00 30.00 01/09/20 15:52 Vapotherm 40.00 30.00 01/09/20 15:33 92 Vapotherm 40.00 30 01/09/20 15:30 94 Vapotherm 40.00 50 01/09/20 15:10 36.1 66 96 50 01/09/20 15:00 64 29 97 Vapotherm 40.00 50.00 I & O 01/10/20 07:00 Intake Total 2150 ml Output Total 3425 ml Balance -1275 ml Capillary Refill : Less Than 3 SecondsLess Than 3 Seconds General Appearance: No Apparent Distress, Chronically ill, Obese HEENT: PERRL/EOMI Respiratory: Decreased Breath Sounds, Wheezing, Other (diminished breath sounds posteriorly without wheezes rales or rhonchi breath sounds equal bilaterally) Cardiovascular: Regular Rate, Rhythm, No Murmur Peripheral Pulses: 1+ Dorsalis Pedis (R); 2+ Left Dors-Pedis (L) Gastrointestinal: non tender, soft, no organomegaly Extremity: No Pedal Edema, Other (chronic venous insufficiency changes of the right lower extremity right leg is wrapped with evidence for lateral ulceration. There is no evidence for ascending lymphangitis no induration or pain around the wound.) Neurologic/Psychiatric: Alert, Oriented x3 Results Lab Laboratory Tests 01/09/20 16:46: Glucometer 131H 01/09/20 20:23: Glucometer 191H 01/10/20 03:38: White Blood Count 4.4, Red Blood Count 4.21L, Hemoglobin 13.1L, Hematocrit 43, Mean Corpuscular Volume 101H, Mean Corpuscular Hemoglobin 31, Mean Corpuscular Hemoglobin Concent 31L, Red Cell Distribution Width 15.4H, Platelet Count 152, Mean Platelet Volume 9.9, Immature Granulocyte % (Auto) 0, Neutrophils (%) (Auto) 81H, Lymphocytes (%) (Auto) 11L, Monocytes (%) (Auto) 9, Eosinophils (%) (Auto) 0, Basophils (%) (Auto) 0, Neutrophils # (Auto) 3.5, Lymphocytes # (Auto) 0.5L, Monocytes # (Auto) 0.4, Eosinophils # (Auto) 0.0, Basophils # (Auto) 0.0, Immature Granulocyte # (Auto) 0.0, Sodium Level 144, Potassium Level 4.6, Chloride Level 98, Carbon Dioxide Level 36H, Anion Gap 10, Blood Urea Nitrogen 25H, Creatinine 0.98, Estimat Glomerular Filtration Rate > 60, BUN/Creatinine Ratio 26, Glucose Level 158H, Calcium Level 10.1, Phosphorus Level 3.0, Magnesium Level 2.2 01/10/20 07:12: Blood Gas Puncture Site RIGHT RADIAL, Blood Gas Patient Temperature 36.4, Arterial Blood pH 7.36L, Arterial Blood Partial Pressure CO2 74*H, Arterial Blood Partial Pressure O2 100H, Arterial Blood HCO3 41*H, Arterial Blood Total CO2 43.6H, Arterial Blood Oxygen Saturation 98, Arterial Blood Base Excess 15.1H , Gabriele Test POSITIVE, Blood Gas Ventilator Setting NO, Blood Gas Inspired Oxygen 35% VASOTHERM 01/10/20 11:32: Glucometer 205H Microbiology 01/08/20 Influenza Types A,B Antigen (TACOS) - Final, Complete 01/06/20 Gram Stain - Final, Complete 01/06/20 Wound Culture - Final, Complete Staphylococcus aureus Assessment/Plan Assessment/Plan Assessment/Plan Cellulitis vs venous stasis of BLE COPD, DM, Obesity Hx smoking This looks like venous stasis changes, so unfortunately not much can be done. Continue good local wound care and tight glucose control; no surgical intervention at this time. Will sign off and can reconsult if needed. Clinical Quality Measures DVT/VTE Risk/Contraindication: Risk Factor Score Per Nursin RFS Level Per Nursing on Admit: 4+=Very High KEVYN CRESPO DO Jan 10, 2020 15:01
[2020-01-10] MEDS: ENOXAPARIN 40 MG/0.4 ML (LOVENOX) SYR SC SCH (17:56)
[2020-01-10] MEDS: MELATONIN 3 MG TABLET PO PRN (20:18)
[2020-01-10] MEDS: ALPRAZolam 0.25 MG (XANAX) TAB PO PRN (20:18)
[2020-01-10] MEDS: MONTELUKAST 10 MG (SINGULAIR) TAB PO SCH (20:18)
[2020-01-10] MEDS: SIMvastatin 20 MG (ZOCOR) TAB PO SCH (20:18)
[2020-01-11] VITALS (9 sets, daily range): BP systolic 145–174; BP diastolic 74–88
[2020-01-11] MEDS: RT-ALBUTEROL INHALER HFA (VENTOLIN HFA) 18 GM IH SCH ×6 (02:31→21:45)
[2020-01-11] MEDS: IPRATROPIUM INHALER (ATROVENT) 12.9 GM INH SCH ×6 (02:31→21:45)
[2020-01-11] MEDS: GLIMEPIRIDE 2 MG (AMARYL) TAB PO SCH (04:53)
[2020-01-11] MEDS: LEVOTHYROXINE 75 MCG (LEVOTHROID) TABLET PO SCH (04:53)
[2020-01-11] MEDS: LEVOTHYROXINE 100 MCG (LEVOTHROID) TAB PO SCH (04:53)
[2020-01-11] MEDS: HYDROcodone/APAP 5 MG/325 MG (LORTAB) TAB PO PRN ×4 (04:54→23:57)
[2020-01-11] MEDS: methylPREDNISolone 40 MG/ML (Solu-MEDROL) VIAL IV SCH ×2 (04:54→17:20)
[2020-01-11] MEDS: inSUlin ASPART (NovoLOG) 1 UNIT/0.01 ML (CHARGE PER UNIT) SC SCH ×4 (05:08→20:54)
[2020-01-11 05:48] LABS: BASOPHILS % (AUTO) 0 % (0-10); EOSINOPHILS % (AUTO) 0 % (0-10); HEMATOCRIT 46 % (40-54); HEMOGLOBIN 14.2 g/dL (13.3-17.7); LYMPHOCYTES # (AUTO) 0.7 10^3/uL (1.0-4.0); LYMPHOCYTES % (AUTO) 14 % (12-44); MEAN CORPUSCULAR HEMOGLOBIN 31 pg (25-34); MEAN CORPUSCULAR HGB CONC 31 g/dL (32-36); MEAN CORPUSCULAR VOLUME 101 fL (80-99); MONOCYTES # (AUTO) 0.4 10^3/uL (0.0-1.0); MONOCYTES % (AUTO) 8 % (0-12); NEUTROPHILS # (AUTO) 3.8 10^3/uL (1.8-7.8); NEUTROPHILS % (AUTO) 78 % (42-75); PLATELET COUNT 152 10^3/uL (130-400); WHITE BLOOD COUNT 4.9 10^3/uL (4.3-11.0)
[2020-01-11 06:01] LABS: CHLORIDE 97 MMOL/L (98-107); POTASSIUM 4.8 MMOL/L (3.6-5.0); SODIUM 144 MMOL/L (135-145)
[2020-01-11 06:02] LABS: CALCIUM 10.5 MG/DL (8.5-10.1)
[2020-01-11 06:03] LABS: GLUCOSE 125 MG/DL (70-105)
[2020-01-11 06:04] LABS: CARBON DIOXIDE 36 MMOL/L (21-32)
[2020-01-11 06:06] LABS: PHOSPHORUS 3.5 MG/DL (2.3-4.7)
[2020-01-11 06:07] LABS: CREATININE SERUM 1.05 MG/DL (0.60-1.30); GFR ESTIMATED > 60
[2020-01-11 06:08] LABS: BUN/CREATININE RATIO 25
[2020-01-11 06:09] LABS: MAGNESIUM 2.3 MG/DL (1.6-2.4)
[2020-01-11] MEDS: ADVAIR HFA 115/21 MCG INHALER 8 GM IH SCH ×2 (07:10→19:26)
[2020-01-11] MEDS: UMECLIDINIUM BROMIDE (INCRUSE ELLIPTA) 7'S IH SCH (07:10)
[2020-01-11] MEDS: LOSARTAN 50 MG (COZAAR) TAB PO SCH (09:02)
[2020-01-11] MEDS: FUROSEMIDE 40 MG (LASIX) TAB PO SCH (09:03)
[2020-01-11] MEDS: VITAMIN D3 25 MCG (1,000 UNITS) TABLET PO SCH (09:03)
[2020-01-11] MEDS: ASCORBIC ACID (VIT C) 500 MG TABLET PO SCH (09:03)
[2020-01-11] MEDS: SENNA W/DOCUSATE (SENOKOT S) TABLET PO SCH ×2 (09:03→20:53)
--- NOTE | 2020-01-11 10:54 | Progress Note - Hospitalist ---
Subjective HPI/CC On Admission Date Seen by Provider: Jan 11, 2020 Time Seen by Provider: 10:47 CC: Right leg pain HPI: This is a 64yoWM clinic Pt of [facility] who presents to the ER with right lower extremity cellulitis with drainage, Dr. Mendez was consulted. Pt underwear venous-Doppler showing no evidence of DVT, he will be restarted on home medication and maintained on broad-spectrum antibiotics along with IV steroids for exacerbation of COPD with hypoxia. He continues to smoke about 1.5 packs per day. Subjective/Events-last exam Patient denies shortness of breath at rest but still requiring high flow O2 via Vapotherm 40 L with O2 saturations in the low 90s. He is anxious for discharge but requires moderate assistance to get to the commode and has not yet been to the bathroom. He has insistence that his problems have all been caused by the fact that he quit smoking and does not associate smoking with his lung disease despite conversation to the contrary. Focused Exam Lactate Level 01/08/20 12:47: Lactic Acid Level 1.05 Objective Exam Vital Signs Vital Signs Date Time Temp Pulse Resp B/P (MAP) Pulse Ox O2 Delivery O2 Flow Rate FiO2 01/11/20 09:00 Vapotherm 40.00 30 01/11/20 08:00 36.6 92 18 174/81 (112) 92 Capillary Refill : Less Than 3 SecondsLess Than 3 Seconds General Appearance: Chronically ill, Obese Respiratory: No Accessory Muscle Use, No Respiratory Distress, Other (Loose cough diffuse wheezing with cough minimal breath sounds posteriorly anteriorly chest relatively clear except on forced expiration where there is wheezing.) Cardiovascular: Regular Rate, Rhythm, No Edema, No Gallop, No Murmur Results/Procedures Lab Laboratory Tests 01/11/20 05:40 Patient resulted labs reviewed. Imaging: Reviewed Imaging Report Assessment/Plan Assessment and Plan Assess & Plan/Chief Complaint 1. Respiratory failure laboratory on admission is compatible with acute on chronic hypercapnic respiratory failure likely due to COPD exacerbation. Can't exclude the possibility of underlying sleep apnea considering body habitus contributing respiratory failure as well. Underlying all of this and the major culprit this ongoing tobaccoism discussed this with the patient and his need to quit but patient adheres to the belief that his problems are caused by the fact that he quit smoking, prognosis poor. Will give another attempted trial of decreasing oxygen. Hold further Steroid taper continue bronchodilator therapy and BiPAP at night and as needed during the day. 2. Right lower extremity venous insufficiency with ulceration questionable secondary cellulitis continue antibiotic therapy for now. Critical Care Critically Ill Patient Clinical Quality Measures DVT/VTE Risk/Contraindication: Risk Factor Score Per Nursin RFS Level Per Nursing on Admit: 4+=Very High HUSSEIN ROME MD Jan 11, 2020 10:54
--- NOTE | 2020-01-11 12:00 | NUR ---
PT BP 165/83, DR ROME NOTIFIED. PT ASYMPTOMATIC RESTING IN BED. NO NEW ORDERS RECEIVED AT THIS TIME.
[2020-01-11] MEDS ORDERED: TROUGH ORDER-PHARMACY XX NR (15:00)
[2020-01-11] MEDS: ENOXAPARIN 40 MG/0.4 ML (LOVENOX) SYR SC SCH (17:20)
[2020-01-11] MEDS: ACETAMINOPHEN 500 MG TAB (TYLENOL) PO PRN (20:53)
[2020-01-11] MEDS: ALPRAZolam 0.25 MG (XANAX) TAB PO PRN (20:54)
[2020-01-11] MEDS: SIMvastatin 20 MG (ZOCOR) TAB PO SCH (20:54)
[2020-01-11] MEDS: MONTELUKAST 10 MG (SINGULAIR) TAB PO SCH (20:54)
[2020-01-11] MEDS: MELATONIN 3 MG TABLET PO PRN (20:54)
[2020-01-12 00:43] VITALS: BP 153/71
[2020-01-12] MEDS: RT-ALBUTEROL INHALER HFA (VENTOLIN HFA) 18 GM IH SCH ×6 (02:15→23:19)
[2020-01-12] MEDS: IPRATROPIUM INHALER (ATROVENT) 12.9 GM INH SCH ×6 (02:15→23:19)
[2020-01-12 04:00] VITALS: BP 140/68
[2020-01-12 06:04] LABS: BASOPHILS % (AUTO) 0 % (0-10); EOSINOPHILS % (AUTO) 0 % (0-10); HEMATOCRIT 46 % (40-54); LYMPHOCYTES # (AUTO) 0.6 10^3/uL (1.0-4.0); LYMPHOCYTES % (AUTO) 14 % (12-44); MEAN CORPUSCULAR HEMOGLOBIN 31 pg (25-34); MEAN CORPUSCULAR HGB CONC 31 g/dL (32-36); MEAN CORPUSCULAR VOLUME 100 fL (80-99); MEAN PLATELET VOLUME 9.8 fL (9.0-12.2); MONOCYTES # (AUTO) 0.4 10^3/uL (0.0-1.0); MONOCYTES % (AUTO) 8 % (0-12); NEUTROPHILS # (AUTO) 3.4 10^3/uL (1.8-7.8); NEUTROPHILS % (AUTO) 78 % (42-75); PLATELET COUNT 147 10^3/uL (130-400); WHITE BLOOD COUNT 4.4 10^3/uL (4.3-11.0)
[2020-01-12 06:18] LABS: CHLORIDE 99 MMOL/L (98-107); POTASSIUM 4.6 MMOL/L (3.6-5.0); SODIUM 143 MMOL/L (135-145)
[2020-01-12 06:19] LABS: CALCIUM 10.3 MG/DL (8.5-10.1)
[2020-01-12 06:20] LABS: GLUCOSE 125 MG/DL (70-105)
[2020-01-12 06:21] LABS: CARBON DIOXIDE 35 MMOL/L (21-32)
[2020-01-12 06:23] LABS: CREATININE SERUM 1.04 MG/DL (0.60-1.30); GFR ESTIMATED > 60
[2020-01-12 06:24] LABS: BUN/CREATININE RATIO 25
[2020-01-12 06:26] LABS: MAGNESIUM 2.4 MG/DL (1.6-2.4)
[2020-01-12] MEDS: inSUlin ASPART (NovoLOG) 1 UNIT/0.01 ML (CHARGE PER UNIT) SC SCH ×4 (06:32→21:16)
[2020-01-12] MEDS: GLIMEPIRIDE 2 MG (AMARYL) TAB PO SCH (06:55)
[2020-01-12] MEDS: LEVOTHYROXINE 100 MCG (LEVOTHROID) TAB PO SCH (06:55)
[2020-01-12] MEDS: methylPREDNISolone 40 MG/ML (Solu-MEDROL) VIAL IV SCH ×2 (06:55→17:38)
[2020-01-12] MEDS: LEVOTHYROXINE 75 MCG (LEVOTHROID) TABLET PO SCH (06:55)
[2020-01-12] MEDS: HYDROcodone/APAP 5 MG/325 MG (LORTAB) TAB PO PRN ×2 (06:55→12:07)
[2020-01-12] MEDS: ALPRAZolam 0.25 MG (XANAX) TAB PO PRN (06:55)
[2020-01-12] MEDS: ADVAIR HFA 115/21 MCG INHALER 8 GM IH SCH ×2 (07:34→21:31)
[2020-01-12] MEDS: UMECLIDINIUM BROMIDE (INCRUSE ELLIPTA) 7'S IH SCH (07:35)
[2020-01-12 08:00] VITALS: BP 164/75
[2020-01-12] MEDS: VITAMIN D3 25 MCG (1,000 UNITS) TABLET PO SCH (08:00)
[2020-01-12] MEDS: FUROSEMIDE 40 MG (LASIX) TAB PO SCH (08:00)
[2020-01-12] MEDS: ASCORBIC ACID (VIT C) 500 MG TABLET PO SCH (08:00)
[2020-01-12] MEDS: SENNA W/DOCUSATE (SENOKOT S) TABLET PO SCH ×2 (08:00→20:39)
[2020-01-12] MEDS: LOSARTAN 50 MG (COZAAR) TAB PO SCH (08:00)
--- NOTE | 2020-01-12 10:27 | Physical Therapy Daily Note ---
PT Daily Note-Current Subjective Patient is agitated on this date. Reluctantly agrees to PT. Pain Numeric Pain Scale: 10-Worst Possible Pain Location: Left Location Body Site: Calf Pain Description: Chronic (1 month) Mental Status Patient Orientation: Person, Time, Situation Attachments: Oxygen (vapotherm) Transfers SCALE: Activities may be completed with or without assistive devices. 2-Fmnffotnrz-[id number] completes the activity by him/herself with no assistance from a helper. 5-Set-up or Clean-up Assistance-helper sets up or cleans up; patient completes activity. [place] assists only prior to or following the activity. 4-Supervision or Touching Assistance-helper provides verbal cues and/or touching/steadying and/or contact guard assistance as patient completes a ctivity. Assistance may be provided throughout the activity or intermittently. 3-Partial/Moderate Assistance-helper does LESS THAN HALF the effort. [place] lifts, holds or supports trunk or limbs, but provides less than half the effort. 2-Substantial/Maximal Assistance-helper does MORE THAN HALF the effort. [place] lifts or holds trunk or limbs and provides more than half the effort. 7-Osscfocjd-hnufjg does ALL the effort. Patient does none of the effort to complete the activity. Or, the assistance of 2 or more helpers is required for the patient to complete the activity. If activity was not attempted, code reason: 7-Patient Refused. 9-Not Applicable-not attempted and the patient did not perform the activity before the current illness, exacerbation or injury. 10-Not Attempted due to Environmental Limitations-(lack of equipment, weather restraints, etc.). 88-Not Attempted due to Medical Conditions or Safety Concerns. Sit to Lying (QC): 6 Lying to Sitting/Side of Bed(Q: 6 Sit to Stand (QC): 5 Toilet Transfer (QC): 5 patient is connected to vapotherm which restricts mobility/distance. Patient had BM and required PT to cleanse after commode use Gait Training Does the Patient Walk?: Yes Distance: 10' Walk 10 feet (QC): 4 Gait Assistive Device: FWW restricted by vapotherm Exercises Supine Ex: Ankle pumps, Heel Slides, Straight leg raise Supine Reps: 12 Seated Therapy Exercises: Long arc quads Seated Reps: 12 Standing: Marching Standing Reps: 15 Assessment Patient tolerates minimal activity due to increase SOA and left calf pain due to venous insufficiency. Patient becomes agitated with increase left calf pain. PT Detention Goals Benefits Representative Goals PT Benefits Representative Goals Time Frame: Jan 17, 2020 Roll Left & Right (QC): 6 Sit to Lying (QC): 6 Lying-Sitting on Side/Bed(QC): 6 Sit to Stand (QC): 6 Chair/Hle-dn-Hvxig Xfer(QC): 6 Toilet Transfer (QC): 6 Does the Patient Walk: Yes Walk 10 feet (QC): 6 Walk 50ft with 2 Turns (QC): 6 Walk 150 ft (QC): 6 PT Plan Treatment/Plan Treatment Plan: Continue Plan of Care Treatment Plan: Bed Mobility, Education, Functional Activity Teri, Functional Strength, Gait, Safety, Therapeutic Exercise, Transfers Treatment Duration: Jan 17, 2020 Frequency: 6 times per week Estimated Hrs Per Day: .25 hour per day Patient and/or Family Agrees t: Yes Time/GCodes Time In: 920 Time Out: 943 Total Billed Treatment Time: 23 Total Billed Treatment 1 visit FA x 2 23 min RANJAN BLACKWOOD PT Jan 12, 2020 10:27
[2020-01-12 12:00] VITALS: BP 170/78
--- NOTE | 2020-01-12 14:13 | Progress Note ---
Subjective Subjective/Events-last exam Afebrile, he is somewhat disheartened this morning and thinks he is not going to get out of the hospital for a long time. Objective Exam Last Set of Vital Signs Vital Signs Date Time Temp Pulse Resp B/P (MAP) Pulse Ox O2 Delivery O2 Flow Rate FiO2 01/12/20 12:37 69 01/12/20 12:00 35.6 20 170/78 (108) 93 NIV Bilevel 40.00 35.00 01/12/20 10:59 30 Capillary Refill : Less Than 3 SecondsLess Than 3 Seconds I&O Intake and Output 01/12/20 00:00 Intake Total 1780 ml Output Total 2050 ml Balance -270 ml Intake Oral 1780 ml Output Urine Total 2050 ml # Bowel Movements 1 General: Alert, No Acute Distress Lungs: Other (ronchi throughout) Heart: Regular Rate, No Murmurs Abdomen: Normal Bowel Sounds, Soft Extremities: Other (venous stasis changes, right leg wrapped in dressing with no drainage) Neuro: Normal Speech Psych/Mental Status: Other (mood frustrated) Results/Procedures Lab Laboratory Tests 01/11/20 15:38: Glucometer 168H 01/11/20 19:59: Glucometer 268H 01/12/20 05:46: White Blood Count 4.4, Red Blood Count 4.58, Hemoglobin 14.0, Hematocrit 46, Mean Corpuscular Volume 100H, Mean Corpuscular Hemoglobin 31, Mean Corpuscular Hemoglobin Concent 31L, Red Cell Distribution Width 15.1H, Platelet Count 147, Mean Platelet Volume 9.8, Immature Granulocyte % (Auto) 0, Neutrophils (%) (Auto) 78H, Lymphocytes (%) (Auto) 14, Monocytes (%) (Auto) 8, Eosinophils (%) (Auto) 0, Basophils (%) (Auto) 0, Neutrophils # (Auto) 3.4, Lymphocytes # (Auto) 0.6L, Monocytes # (Auto) 0.4, Eosinophils # (Auto) 0.0, Basophils # (Auto) 0.0, Immature Granulocyte # (Auto) 0.0, Sodium Level 143, Potassium Level 4.6, Chloride Level 99, Carbon Dioxide Level 35H, Anion Gap 9, Blood Urea Nitrogen 26H, Creatinine 1.04, Estimat Glomerular Filtration Rate > 60, BUN/Creatinine Ratio 25, Glucose Level 125H, Calcium Level 10.3H, Phosphorus Level 4.0, Magnesium Level 2.4 01/12/20 11:01: Glucometer 338H Microbiology 01/08/20 Influenza Types A,B Antigen (TACOS) - Final, Complete 01/06/20 Gram Stain - Final, Complete 01/06/20 Wound Culture - Final, Complete Staphylococcus aureus Assessment/Plan Assessment/Plan (1) COPD exacerbation Status: Acute Assessment & Plan: Continue albuterol, ipratropium, Advair, Singulair, umeclidinium and solumedrol. (2) Hypoxia Status: Acute Assessment & Plan: Secondary to COPD exacerbation, continue supportive care, currently on vapotherm. (3) Cellulitis of right lower extremity Status: Resolved Assessment & Plan: Completed treatment course of Zosyn, had vanc from 01/05- 01/07. Surg consulted, no surgical issues noted. (4) Venous stasis ulcer of right lower extremity Status: Chronic Assessment & Plan: Seen by Dr. Leger, silver alginate dressings, continue local wound care. (5) Hypertension Status: Chronic Assessment & Plan: On home losartan, still hypertensive, may need to add another medication. Qualifiers: Qualified Codes: I10 - Essential (primary) hypertension (6) Diabetes mellitus, type 2 Status: Chronic Assessment & Plan: On home glimeperide, resume metformin. Sliding scale insulin. Qualifiers: (7) Hypothyroidism Status: Chronic Assessment & Plan: Resumed home levothyroxine. (8) DVT prophylaxis Status: Acute Assessment & Plan: Enoxaparin Clinical Quality Measures DVT/VTE Risk/Contraindication: Risk Factor Score Per Nursin RFS Level Per Nursing on Admit: 4+=Very High YEISON MULLIGAN MD Jan 12, 2020 14:13
[2020-01-12 15:29] VITALS: BP 163/76
[2020-01-12] MEDS: metFORMIN 500 MG (GLUCOPHAGE) TAB PO SCH (17:38)
[2020-01-12] MEDS: ENOXAPARIN 40 MG/0.4 ML (LOVENOX) SYR SC SCH (17:39)
[2020-01-12 19:43] VITALS: BP 141/63
[2020-01-12] MEDS: SIMvastatin 20 MG (ZOCOR) TAB PO SCH (20:38)
[2020-01-12] MEDS: MONTELUKAST 10 MG (SINGULAIR) TAB PO SCH (20:38)
[2020-01-12] MEDS: MELATONIN 3 MG TABLET PO PRN (20:38)
[2020-01-13] VITALS: BP 144/78
[2020-01-13] MEDS: RT-ALBUTEROL INHALER HFA (VENTOLIN HFA) 18 GM IH SCH ×6 (03:43→23:32)
[2020-01-13] MEDS: IPRATROPIUM INHALER (ATROVENT) 12.9 GM INH SCH ×6 (03:43→23:32)
[2020-01-13 04:00] VITALS: BP 138/68
[2020-01-13 05:53] LABS: EOSINOPHILS % (AUTO) 0 % (0-10); HEMATOCRIT 49 % (40-54); MEAN CORPUSCULAR VOLUME 100 fL (80-99)
[2020-01-13 05:55] LABS: BASOPHILS % (AUTO) 0 % (0-10); LYMPHOCYTES # (AUTO) 0.6 10^3/uL (1.0-4.0); LYMPHOCYTES % (AUTO) 12 % (12-44); MEAN CORPUSCULAR HEMOGLOBIN 31 pg (25-34); MEAN CORPUSCULAR HGB CONC 31 g/dL (32-36); MEAN PLATELET VOLUME 10.3 fL (9.0-12.2); MONOCYTES # (AUTO) 0.4 10^3/uL (0.0-1.0); MONOCYTES % (AUTO) 8 % (0-12); NEUTROPHILS # (AUTO) 3.8 10^3/uL (1.8-7.8); NEUTROPHILS % (AUTO) 79 % (42-75); PLATELET COUNT 145 10^3/uL (130-400); WHITE BLOOD COUNT 4.8 10^3/uL (4.3-11.0)
[2020-01-13] MEDS: inSUlin ASPART (NovoLOG) 1 UNIT/0.01 ML (CHARGE PER UNIT) SC SCH ×4 (06:04→20:12)
[2020-01-13] MEDS: LEVOTHYROXINE 100 MCG (LEVOTHROID) TAB PO SCH (06:08)
[2020-01-13] MEDS: GLIMEPIRIDE 2 MG (AMARYL) TAB PO SCH (06:08)
[2020-01-13] MEDS: LEVOTHYROXINE 75 MCG (LEVOTHROID) TABLET PO SCH (06:08)
[2020-01-13] MEDS: methylPREDNISolone 40 MG/ML (Solu-MEDROL) VIAL IV SCH (06:08)
[2020-01-13 06:19] LABS: BUN/CREATININE RATIO 25; CALCIUM 10.4 MG/DL (8.5-10.1); CARBON DIOXIDE 34 MMOL/L (21-32); CHLORIDE 97 MMOL/L (98-107); CREATININE SERUM 1.06 MG/DL (0.60-1.30); GFR ESTIMATED > 60; GLUCOSE 164 MG/DL (70-105); MAGNESIUM 2.2 MG/DL (1.6-2.4); PHOSPHORUS 3.7 MG/DL (2.3-4.7); POTASSIUM 4.2 MMOL/L (3.6-5.0); SODIUM 142 MMOL/L (135-145)
[2020-01-13] MEDS: ADVAIR HFA 115/21 MCG INHALER 8 GM IH SCH ×2 (07:04→19:35)
[2020-01-13] MEDS: UMECLIDINIUM BROMIDE (INCRUSE ELLIPTA) 7'S IH SCH (07:05)
[2020-01-13 08:05] VITALS: BP 137/77
--- NOTE | 2020-01-13 08:13 | Wound Care Assessment ---
Wound Care Assessment Date Seen by Provider: Jan 13, 2020 Time Seen by Provider: 07:45 Chief Complaint R calf ulcers. HPI The patient is a 64 year old male with long-standing bilateral venous insufficiency, and a month-long history of ulceration of the R calf. These wounds are superficial, and silver alginate dressings are ordered. Will follow- up as an outpatient is [facility]. He is urged to elevate. 01/13/20 Interval Note: Past Medical History: Admits Diabetes Type II, Admits Heart Disease (COPD, tobacco abuse.) Smoking Status: Former Smoker (patient reports 1.5 PPD x 35 years, quit 6 days ago per patient report) Recreational Drug Use: No Alcohol Use: Denies Use Exam Vital Signs Date Time Temp Pulse Resp B/P (MAP) Pulse Ox O2 Delivery O2 Flow Rate FiO2 01/13/20 08:05 36.0 58 20 137/77 (97) 97 High Flow N/C 4.00 01/12/20 20:40 30 Capillary Refill : Less Than 3 SecondsLess Than 3 Seconds Results Laboratory Tests 01/12/20 11:01: Glucometer 338H 01/12/20 15:32: Glucometer 163H 01/12/20 20:50: Glucometer 247H 01/13/20 05:06: White Blood Count 4.8, Red Blood Count 4.86, Hemoglobin 15.0, Hematocrit 49, Mean Corpuscular Volume 100H, Mean Corpuscular Hemoglobin 31, Mean Corpuscular Hemoglobin Concent 31L, Red Cell Distribution Width 14.8H, Platelet Count 145, Mean Platelet Volume 10.3, Immature Granulocyte % (Auto) 0, Neutrophils (%) (Auto) 79H, Lymphocytes (%) (Auto) 12, Monocytes (%) (Auto) 8, Eosinophils (%) (Auto) 0, Basophils (%) (Auto) 0, Neutrophils # (Auto) 3.8, Lymphocytes # (Auto) 0.6L, Monocytes # (Auto) 0.4, Eosinophils # (Auto) 0.0, Basophils # (Auto) 0.0, Immature Granulocyte # (Auto) 0.0, Sodium Level 142, Potassium Level 4.2, Chloride Level 97L, Carbon Dioxide Level 34H, Anion Gap 11, Blood Urea Nitrogen 27H, Creatinine 1.06, Estimat Glomerular Filtration Rate > 60, BUN/Creatinine Ratio 25, Glucose Level 164H, Calcium Level 10.4H, Phosphorus Level 3.7, Magnesium Level 2.2 01/13/20 05:07: Glucometer 161H Microbiology 01/08/20 Influenza Types A,B Antigen (TACOS) - Final, Complete 01/06/20 Gram Stain - Final, Complete 01/06/20 Wound Culture - Final, Complete Staphylococcus aureus Assessment/Plan/Dx 1. Bilateral venous insufficiency. 2. Partial thickness ulcers, R calf. 3. Diabetes with unknown control Plan: Silver alginate dressings ordered. Compression held until arterial evalu ation available. MIN MONZON MD Jan 13, 2020 08:12
[2020-01-13] MEDS: LOSARTAN 50 MG (COZAAR) TAB PO SCH (08:24)
[2020-01-13] MEDS: VITAMIN D3 25 MCG (1,000 UNITS) TABLET PO SCH (08:24)
[2020-01-13] MEDS: metFORMIN 500 MG (GLUCOPHAGE) TAB PO SCH ×2 (08:24→17:56)
[2020-01-13] MEDS: SENNA W/DOCUSATE (SENOKOT S) TABLET PO SCH ×2 (08:24→20:12)
[2020-01-13] MEDS: ASCORBIC ACID (VIT C) 500 MG TABLET PO SCH (08:24)
[2020-01-13] MEDS: FUROSEMIDE 40 MG (LASIX) TAB PO SCH (08:24)
--- NOTE | 2020-01-13 10:19 | Progress Note ---
Subjective Subjective/Events-last exam Afebrile, switched to nasal cannula at 4 lpm this morning. He states he has a cpap machine but no mask because it is worn out and from the , and he talked to his provider about getting a new one, but he hasn't gotten a new sleep study because he states he understood the mask would cost $300 and he can't [place] that, so hasn't started the process. Objective Exam Last Set of Vital Signs Vital Signs Date Time Temp Pulse Resp B/P (MAP) Pulse Ox O2 Delivery O2 Flow Rate FiO2 01/13/20 08:05 36.0 58 20 137/77 (97) 97 High Flow N/C 4.00 01/13/20 08:00 30 Capillary Refill : Less Than 3 SecondsLess Than 3 Seconds I&O Intake and Output 01/13/20 00:00 Intake Total 2760 ml Output Total 3000 ml Balance -240 ml Intake Oral 2760 ml Output Urine Total 3000 ml General: Alert, No Acute Distress Lungs: Other (ronchi) Heart: Regular Rate Extremities: Other (both legs wrapped in compression dressings, no drainage noted.) Neuro: Normal Speech Psych/Mental Status: Mental Status NL, Mood NL Results/Procedures Lab Laboratory Tests 01/12/20 11:01: Glucometer 338H 01/12/20 15:32: Glucometer 163H 01/12/20 20:50: Glucometer 247H 01/13/20 05:06: White Blood Count 4.8, Red Blood Count 4.86, Hemoglobin 15.0, Hematocrit 49, Mean Corpuscular Volume 100H, Mean Corpuscular Hemoglobin 31, Mean Corpuscular Hemoglobin Concent 31L, Red Cell Distribution Width 14.8H, Platelet Count 145, Mean Platelet Volume 10.3, Immature Granulocyte % (Auto) 0, Neutrophils (%) (Auto) 79H, Lymphocytes (%) (Auto) 12, Monocytes (%) (Auto) 8, Eosinophils (%) (Auto) 0, Basophils (%) (Auto) 0, Neutrophils # (Auto) 3.8, Lymphocytes # (Auto) 0.6L, Monocytes # (Auto) 0.4, Eosinophils # (Auto) 0.0, Basophils # (Auto) 0.0, Immature Granulocyte # (Auto) 0.0, Sodium Level 142, Potassium Level 4.2, Chloride Level 97L, Carbon Dioxide Level 34H, Anion Gap 11, Blood Urea Nitrogen 27H, Creatinine 1.06, Estimat Glomerular Filtration Rate > 60, BUN/Creatinine Ratio 25, Glucose Level 164H, Calcium Level 10.4H, Phosphorus Level 3.7, Magnesium Level 2.2 01/13/20 05:07: Glucometer 161H Microbiology 01/08/20 Influenza Types A,B Antigen (TACOS) - Final, Complete 01/06/20 Gram Stain - Final, Complete 01/06/20 Wound Culture - Final, Complete Staphylococcus aureus Assessment/Plan Assessment/Plan (1) COPD exacerbation Status: Acute Assessment & Plan: Continue albuterol, ipratropium, Advair, Singulair, umeclidinium and solumedrol. 01/12- change solumedrol to prednisone, continue to wean O2 as tolerated. Will have RT do home O2 qual as discharge is likely tomorrow. (2) Hypoxia Status: Acute Assessment & Plan: Secondary to COPD exacerbation, continue supportive care, currently on vapotherm. 01/12 weaned to NC at 4 lpm, continue to wean as tolerated, eval for home need. (3) Cellulitis of right lower extremity Status: Resolved Assessment & Plan: Completed treatment course of Zosyn, had vanc from 01/05- 01/07. Surg consulted, no surgical issues noted. (4) Venous stasis ulcer of right lower extremity Status: Chronic Assessment & Plan: Seen by Dr. Leger, silver alginate dressings, continue local wound care. (5) Hypertension Status: Chronic Assessment & Plan: On home losartan, still hypertensive, may need to add another medication. 01/12- improving, only mildly elevated today Qualifiers: Qualified Codes: I10 - Essential (primary) hypertension (6) Diabetes mellitus, type 2 Status: Chronic Assessment & Plan: On home glimeperide, resume metformin. Sliding scale insulin. Qualifiers: (7) Hypothyroidism Status: Chronic Assessment & Plan: Resumed home levothyroxine. (8) DVT prophylaxis Status: Acute Assessment & Plan: Enoxaparin Clinical Quality Measures DVT/VTE Risk/Contraindication: Risk Factor Score Per Nursin RFS Level Per Nursing on Admit: 4+=Very High YEISON MULLIGAN MD Jan 13, 2020 10:19
--- NOTE | 2020-01-13 11:17 | NUR ---
PATIENT WAS 95%ON 4L/M OXYGEN THEN WAS PLACED ON ROOM AIR FOR 20MIN SAT DROPPED TO 85% AND THEN WALKED AND DROPPED TO 78% PATIENT WAS THEN PLACED ON OXYGEN AT 4 L/M SAT RETURNED TO 95% PATIENT FINISHED WALK AND SAT REMAINED AT 95% RECOMMEND 2 TO 4L/M Addendum: 01/13/20 at 1119 by RAKAN BESS RT Amended: Links added.
[2020-01-13 11:44] VITALS: BP 135/63
--- NOTE | 2020-01-13 11:54 | Physical Therapy Daily Note ---
PT Daily Note-Current Subjective Patient is adamant to go home. Reluctantly agrees to PT. Mental Status Patient Orientation: Person, Time, Situation Attachments: Oxygen (4L) Transfers SCALE: Activities may be completed with or without assistive devices. 2-Cwfajastsr-jujvtja completes the activity by him/herself with no assistance from a helper. 5-Set-up or Clean-up Assistance-helper sets up or cleans up; patient completes activity. Hollis assists only prior to or following the activity. 4-Supervision or Touching Assistance-helper provides verbal cues and/or touching/steadying and/or contact guard assistance as patient completes ac tivity. Assistance may be provided throughout the activity or intermittently. 3-Partial/Moderate Assistance-helper does LESS THAN HALF the effort. Hollis lifts, holds or supports trunk or limbs, but provides less than half the effort. 2-Substantial/Maximal Assistance-helper does MORE THAN HALF the effort. Hollis lifts or holds trunk or limbs and provides more than half the effort. 5-Gyaxmhoij-vtnoot does ALL the effort. Patient does none of the effort to complete the activity. Or, the assistance of 2 or more helpers is required for the patient to complete the activity. If activity was not attempted, code reason: 7-Patient Refused. 9-Not Applicable-not attempted and the patient did not perform the activity before the current illness, exacerbation or injury. 10-Not Attempted due to Environmental Limitations-(lack of equipment, weather restraints, etc.). 88-Not Attempted due to Medical Conditions or Safety Concerns. Sit to Stand (QC): 6 patient is up independently in room to toilet Gait Training Does the Patient Walk?: Yes Distance: 400' Walk 10 feet (QC): 6 Walk 50 ft with 2 Turns(QC): 6 Walk 150 ft (QC): 6 Gait Assistive Device: FWW safe and functional with no deviation Assessment Patient is currently at independent PLOF with all gross motor skills. PT so dismiss patient from services. PT Solar Sales Consultant Goals Care Home Goals PT Solar Sales Consultant Goals Time Frame: Jan 17, 2020 Roll Left & Right (QC): 6 Sit to Lying (QC): 6 Lying-Sitting on Side/Bed(QC): 6 Sit to Stand (QC): 6 Chair/Dyt-pu-Zyvst Xfer(QC): 6 Toilet Transfer (QC): 6 Does the Patient Walk: Yes Walk 10 feet (QC): 6 Walk 50ft with 2 Turns (QC): 6 Walk 150 ft (QC): 6 PT Plan Treatment/Plan Treatment Plan: Discontinue PT, goals met Treatment Plan: Bed Mobility, Education, Functional Activity Teri, Functional Strength, Gait, Safety, Therapeutic Exercise, Transfers Treatment Duration: Jan 17, 2020 Frequency: 6 times per week Estimated Hrs Per Day: .25 hour per day Patient and/or Family Agrees t: Yes Time/GCodes Time In: 1045 Time Out: 1100 Total Billed Treatment Time: 45 Total Billed Treatment 1 visit FA 15 min RANJAN BLACKWOOD PT Jan 13, 2020 11:54
--- NOTE | 2020-01-13 14:09 | NUR ---
CM/SS: Visited with pt as to plan for discharge and choice on Home Medical Equipment Plan: Pt is from home and will return there with oxygen from [facility] Summary: Pt aware he will need oxygen at the time of discharge. Pt offered choices and has selected [facility] to provide his oxygen. Pt reports he does not have any other needs at this time. [facility] is faxed the information about the need for oxygen. A portable is requested to be brought to the hospital prior to discharge. Contact information is verified on the address and the phone number. This worker will follow up.
[2020-01-13 15:39] VITALS: BP 127/58
[2020-01-13] MEDS: ENOXAPARIN 40 MG/0.4 ML (LOVENOX) SYR SC SCH (17:56)
[2020-01-13 19:49] VITALS: BP 116/56
[2020-01-13] MEDS: MONTELUKAST 10 MG (SINGULAIR) TAB PO SCH (20:12)
[2020-01-13] MEDS: SIMvastatin 20 MG (ZOCOR) TAB PO SCH (20:12)
[2020-01-13] MEDS: MELATONIN 3 MG TABLET PO PRN (20:12)
[2020-01-13] MEDS: HYDROcodone/APAP 5 MG/325 MG (LORTAB) TAB PO PRN (20:13)
[2020-01-14] VITALS: BP 116/67
[2020-01-14] MEDS: IPRATROPIUM INHALER (ATROVENT) 12.9 GM INH SCH ×4 (01:24→15:59)
[2020-01-14] MEDS: RT-ALBUTEROL INHALER HFA (VENTOLIN HFA) 18 GM IH SCH ×4 (01:24→15:59)
[2020-01-14 04:00] VITALS: BP 137/75
[2020-01-14 06:00] LABS: BASOPHILS % (AUTO) 0 % (0-10); EOSINOPHILS # (AUTO) 0.1 10^3/uL (0.0-0.3); EOSINOPHILS % (AUTO) 2 % (0-10); HEMATOCRIT 46 % (40-54); LYMPHOCYTES # (AUTO) 0.9 10^3/uL (1.0-4.0); LYMPHOCYTES % (AUTO) 19 % (12-44); MEAN CORPUSCULAR HEMOGLOBIN 31 pg (25-34); MEAN CORPUSCULAR HGB CONC 30 g/dL (32-36); MEAN CORPUSCULAR VOLUME 101 fL (80-99); MEAN PLATELET VOLUME 10.6 fL (9.0-12.2); MONOCYTES # (AUTO) 0.4 10^3/uL (0.0-1.0); MONOCYTES % (AUTO) 9 % (0-12); NEUTROPHILS # (AUTO) 3.3 10^3/uL (1.8-7.8); NEUTROPHILS % (AUTO) 71 % (42-75); PLATELET COUNT 123 10^3/uL (130-400); WHITE BLOOD COUNT 4.7 10^3/uL (4.3-11.0)
[2020-01-14 06:05] LABS: CHLORIDE 99 MMOL/L (98-107); POTASSIUM 4.2 MMOL/L (3.6-5.0); SODIUM 144 MMOL/L (135-145)
[2020-01-14 06:07] LABS: CALCIUM 10.2 MG/DL (8.5-10.1); GLUCOSE 115 MG/DL (70-105)
[2020-01-14 06:09] LABS: CARBON DIOXIDE 33 MMOL/L (21-32)
[2020-01-14 06:11] LABS: CREATININE SERUM 1.16 MG/DL (0.60-1.30); GFR ESTIMATED > 60
[2020-01-14 06:12] LABS: BUN/CREATININE RATIO 31
[2020-01-14 06:14] LABS: MAGNESIUM 2.2 MG/DL (1.6-2.4)
[2020-01-14] MEDS: LEVOTHYROXINE 100 MCG (LEVOTHROID) TAB PO SCH (06:29)
[2020-01-14] MEDS: inSUlin ASPART (NovoLOG) 1 UNIT/0.01 ML (CHARGE PER UNIT) SC SCH ×2 (06:29→11:06)
[2020-01-14] MEDS: LEVOTHYROXINE 75 MCG (LEVOTHROID) TABLET PO SCH (06:29)
[2020-01-14] MEDS: GLIMEPIRIDE 2 MG (AMARYL) TAB PO SCH (06:29)
[2020-01-14] MEDS ORDERED: MONT10TA26 PO (06:53)
[2020-01-14] MEDS ORDERED: PRD10T PO (06:53)
[2020-01-14] MEDS ORDERED: FLUT12AE4 IH (06:53)
[2020-01-14] MEDS ORDERED: ALBU18HF2 IH (06:53)
[2020-01-14] MEDS: ADVAIR HFA 115/21 MCG INHALER 8 GM IH SCH (07:53)
[2020-01-14] MEDS: UMECLIDINIUM BROMIDE (INCRUSE ELLIPTA) 7'S IH SCH (07:53)
[2020-01-14 08:00] VITALS: BP 122/56
[2020-01-14] MEDS: metFORMIN 500 MG (GLUCOPHAGE) TAB PO SCH (08:31)
[2020-01-14] MEDS: ASCORBIC ACID (VIT C) 500 MG TABLET PO SCH (08:31)
[2020-01-14] MEDS: VITAMIN D3 25 MCG (1,000 UNITS) TABLET PO SCH (08:31)
[2020-01-14] MEDS: FUROSEMIDE 40 MG (LASIX) TAB PO SCH (08:32)
[2020-01-14] MEDS: LOSARTAN 50 MG (COZAAR) TAB PO SCH (08:32)
[2020-01-14] MEDS: SENNA W/DOCUSATE (SENOKOT S) TABLET PO SCH (08:32)
[2020-01-14] MEDS: HYDROcodone/APAP 5 MG/325 MG (LORTAB) TAB PO PRN (08:41)
[2020-01-14] MEDS ORDERED: RT-ALBUINH IH (09:11)
--- NOTE | 2020-01-14 09:12 | Discharge Summary ---
Discharge Summary Hospital Course Problems/Diagnosis: (1) COPD exacerbation Status: Acute Assessment & Plan: Continue albuterol, ipratropium, Advair, Singulair, umec lidinium and solumedrol. 01/12- change solumedrol to prednisone, continue to wean O2 as tolerated. Will have RT do home O2 qual as discharge is likely tomorrow. 01/13- Discharged on prednisone taper, new script for Advair, Singulair and Albuterol, continue home Spiriva, required 2-4 lpm supplemental oxygen which was ordered. (2) Hypoxia Status: Acute Assessment & Plan: Secondary to COPD exacerbation, continue supportive care, currently on vapotherm. 01/12 weaned to NC at 4 lpm, continue to wean as tolerated, discharged on home O2. (3) Cellulitis of right lower extremity Status: Resolved Resolution Date/Time: 01/12/20 @ 14:10 Assessment & Plan: Completed treatment course of Zosyn, had vanc from 01/05- 01/07. Surg consulted, no surgical issues noted. (4) Venous stasis ulcer of right lower extremity Status: Chronic Assessment & Plan: Seen by Dr. Leger, silver alginate dressings, continue local wound care. (5) Hypertension Status: Chronic Assessment & Plan: On home losartan, still hypertensive, may need to add another medication. 01/12- improving, only mildly elevated today Qualifiers: Qualified Codes: I10 - Essential (primary) hypertension (6) Diabetes mellitus, type 2 Status: Chronic Assessment & Plan: On home glimeperide, resume metformin. Qualifiers: (7) Hypothyroidism Status: Chronic Assessment & Plan: Resumed home levothyroxine. Hospital Course Date of Admission: Jan 06, 2020 at 17:03 Admission Diagnosis : Family Physician/Provider: Oleksandr Araujo MD Date of Discharge: 01/14/20 Discharge Diagnosis: See problem list Hospital Course: See problem list Labs and Pending Lab Test: Laboratory Tests 01/13/20 11:36: Glucometer 195H 01/13/20 16:05: Glucometer 193H 01/13/20 19:47: Glucometer 184H 01/14/20 05:12: Glucometer 109 01/14/20 05:33: White Blood Count 4.7, Red Blood Count 4.58, Hemoglobin 14.0, Hematocrit 46, Mean Corpuscular Volume 101H, Mean Corpuscular Hemoglobin 31, Mean Corpuscular Hemoglobin Concent 30L, Red Cell Distribution Width 15.3H, Platelet Count 123L, Mean Platelet Volume 10.6, Immature Granulocyte % (Auto) 0, Neutrophils (%) (Auto) 71, Lymphocytes (%) (Auto) 19, Monocytes (%) (Auto) 9, Eosinophils (%) (Auto) 2, Basophils (%) (Auto) 0, Neutrophils # (Auto) 3.3, Lymphocytes # (Auto) 0.9L, Monocytes # (Auto) 0.4, Eosinophils # (Auto) 0.1, Basophils # (Auto) 0.0, Immature Granulocyte # (Auto) 0.0, Sodium Level 144, Potassium Level 4.2, Chloride Level 99, Carbon Dioxide Level 33H, Anion Gap 12, Blood Urea Nitrogen 36H, Creatinine 1.16, Estimat Glomerular Filtration Rate > 60, BUN/Creatinine Ratio 31, Glucose Level 115H, Calcium Level 10.2H, Phosphorus Level 4.0, Magnesium Level 2.2 Microbiology 01/08/20 Influenza Types A,B Antigen (TACOS) - Final, Complete 01/06/20 Gram Stain - Final, Complete 01/06/20 Wound Culture - Final, Complete Staphylococcus aureus Home Meds Active Prednisone 10 Mg Tab 0 PO UD Take 4 tabs(40mg)daily, decrease by 1 tab(10mg) every other day. Montelukast Sodium 10 Mg Tablet 10 Mg PO HS Advair Hfa 115-21 Mcg Inhaler (Fluticasone/Salmeterol) 12 Gm Hfa.aer.ad 2 Puff IH BID Reported Vitamin D3 (Cholecalciferol (Vitamin D3)) 25 Mcg Tablet 25 Mcg PO DAILY Vitamin C (Ascorbate Calcium) 500 Mg Tablet 500 Mg PO DAILY Pravastatin Sodium 40 Mg Tablet 40 Mg PO HS Levothyroxine Sodium 175 Mcg Tablet 175 Mcg PO DAILY TAKE HALF AN HOUR BEFORE BREAKFAST Losartan Potassium 50 Mg Tablet 50 Mg PO DAILY Glimepiride 2 Mg Tablet 2 Mg PO DAILY Furosemide 40 Mg Tablet 40 Mg PO DAILY Metformin HCl 1,000 Mg Tablet 1,000 Mg PO BID Spiriva (Tiotropium [place]) 1 Inh Aerp 1 Puff INH DAILY Assessment/Pt DC Instructions Follow up with primary provider within a week of discharge. Discharge Diet: ADA Diet Activity as Tolerated: Yes Orders-Post D/C & Referrals Pneu Vac Indicated: Yes Discharge Physical Examination Allergies: Coded Allergies: No Known Drug Allergies (Unverified , 08/14/17) General Appearance: No Apparent Distress, WD/WN Respiratory: Lungs Clear, Normal Breath Sounds Cardiovascular: Regular Rate, Rhythm, No Murmur Skin: Normal Color, Warm/Dry Neurologic/Psychiatric: Alert, Normal Mood/Affect Clinical Quality Measures DVT/VTE Risk/Contraindication: Risk Factor Score Per Nursin RFS Level Per Nursing on Admit: 4+=Very High YEISON MULLIGAN MD Jan 14, 2020 09:12
[2020-01-14] MEDS ORDERED: predniSONE 10 MG TAB PO SCH (12:00)
--- NOTE | 2020-01-14 13:51 | D/C HH Face to Face Order ---
D/C Face to Face Orders Instructions for Patient [facility], Patient Instructions/FollowUp: Follow up with Dr. Leger as directed. Follow up with Dr. Araujo on 01/18 at 11 am. Physician to follow Patient: Dr. Araujo Discharge Diet for Home: ADA Diet Patient Data-Allergies,Ht & Wt Patient Allergies: Coded Allergies: No Known Drug Allergies (Unverified , 08/14/17) Height (Feet): 6 Height (Inches): 0.00 Weight (Pounds): 281 Weight (Ounces): 0.0 Home Health Need/Face to Face Date of Face to Face: Jan 14, 2020 Clinical Findings: Non-healing wound I have seen Pt [id number]: Yes Discharged To: Home Diagnosis/Conditions: COPD exacerbation with oxygen dependence Non-healing venous stasis wounds Diabetes mellitus Patient is Homebound due to: Shortness of breath/distress Homebound Status Due to the above stated illness, injury or surgical procedure (medical condition or diagnosis) and associated clinical findings, the patient is homebound because of his/her inability to leave home except with aid of a supportive device and/or person AND leaving the home requires a considerable and taxing effort or is medically contraindicated. Pt req the following assistanc: Aid of another person Home Health Nursing Orders Home Health Services Order: Nursing Services, Wound Care-Eval/Treat Home Health Infusion Therapy Line Start Date: Jan 06, 2020 Certify Stmt I certify that this patient is under my care and that I, a nurse practitioner or a physician; a chemical laboratory assistant working with me, had a face to face encounter that - meets the physician face to face encounter requirements with this patient as dated. YEISON MULLIGAN MD Jan 14, 2020 13:51
[2020-01-14 16:21] VITALS: BP 122/56
== END 2020-01-14 16:21 | disposition home health service (06) | DRG 207 ==
LOC: EDUNIT# 11:22 → ER 11:23 → 4TH 17:03 → ICU 01-08 12:50 → CSD 01-09 16:35 → 4TH 01-10 13:20
PROVIDERS: ADMIT Internal Medicine; ATTEND Family Medicine
PROC: 5A1955Z Respiratory Ventilation, Greater than 96 Consecutive Hours (ICD-10-PCS; principal; 2020-01-08)
DX: J44.1 Chronic obstructive pulmonary disease with (acute) exacerbation (principal); J96.22 Acute and chronic respiratory failure with hypercapnia; J96.21 Acute and chronic respiratory failure with hypoxia; L03.115 Cellulitis of right lower limb; E87.2 Acidosis; J98.11 Atelectasis; L97.219 Non-pressure chronic ulcer of right calf with unspecified severity; G47.30 Sleep apnea, unspecified; Z20.828 Contact with and (suspected) exposure to other viral communicable diseases; J30.2 Other seasonal allergic rhinitis; E11.9 Type 2 diabetes mellitus without complications; I10 Essential (primary) hypertension; E78.00 Pure hypercholesterolemia, unspecified; K21.9 Gastro-esophageal reflux disease without esophagitis; E87.5 Hyperkalemia; F17.210 Nicotine dependence, cigarettes, uncomplicated; I87.2 Venous insufficiency (chronic) (peripheral); Z79.84 Long term (current) use of oral hypoglycemic drugs; Z87.442 Personal history of urinary calculi
CPT/HCPCS: 36415; 36600; 71045; 80048; 80053; 80202; 80306; 81000; 82805; 82962; 83605; 83735; 83880; 84100; 84145; 85007; 85025; 85027; 87070; 87077; 87081; 87186; 87205; 87449; 87635; 87804; 87899; 94640; 94660; 94760; 94761

== ENCOUNTER → 2020-01-20 | Outpatient (CLI) | payer MEDICARE ==
[~2020-01-20] MED LIST changes: +ALBU18HF2 IH; +ASCO-262 PO; +CHOL10002 PO; +FLUT12AE4 IH; +MONT10TA26 PO; +PRD10T PO; +RT-ALBUINH IH
== END ==
LOC: WOUNDCARE 09:05
PROVIDERS: ATTEND Surgery
DX: I87.332 Chronic venous hypertension (idiopathic) with ulcer and inflammation of left lower extremity (principal); I89.0 Lymphedema, not elsewhere classified; L97.212 Non-pressure chronic ulcer of right calf with fat layer exposed; E11.622 Type 2 diabetes mellitus with other skin ulcer; I96 Gangrene, not elsewhere classified
CPT/HCPCS: 99214

== ENCOUNTER → 2020-01-27 | Outpatient (CLI) | payer MEDICARE | LOC: WOUNDCARE 15:26 | PROVIDERS: ATTEND Surgery | DX: E11.52 Type 2 diabetes mellitus with diabetic peripheral angiopathy with gangrene (principal); E11.622 Type 2 diabetes mellitus with other skin ulcer; I96 Gangrene, not elsewhere classified; I87.331 Chronic venous hypertension (idiopathic) with ulcer and inflammation of right lower extremity; L97.211 Non-pressure chronic ulcer of right calf limited to breakdown of skin; I89.0 Lymphedema, not elsewhere classified | CPT/HCPCS: 99213 ==

== ENCOUNTER → 2020-02-03 | Outpatient (CLI) | payer MEDICARE | LOC: WOUNDCARE 12:23 | PROVIDERS: ATTEND Surgery | DX: I87.331 Chronic venous hypertension (idiopathic) with ulcer and inflammation of right lower extremity (principal); I89.0 Lymphedema, not elsewhere classified; I96 Gangrene, not elsewhere classified; E11.622 Type 2 diabetes mellitus with other skin ulcer; L97.211 Non-pressure chronic ulcer of right calf limited to breakdown of skin | CPT/HCPCS: 99212 ==

== ENCOUNTER → 2020-02-10 | Outpatient (CLI) | payer MEDICARE ==
[~2020-02-10] MED LIST changes: -MONT10TA26 PO; +MONT10TA97 PO
== END ==
LOC: WOUNDCARE 12:27
PROVIDERS: ATTEND Surgery
DX: I87.331 Chronic venous hypertension (idiopathic) with ulcer and inflammation of right lower extremity (principal); I89.0 Lymphedema, not elsewhere classified; L97.211 Non-pressure chronic ulcer of right calf limited to breakdown of skin; E11.622 Type 2 diabetes mellitus with other skin ulcer; E11.52 Type 2 diabetes mellitus with diabetic peripheral angiopathy with gangrene; Z20.828 Contact with and (suspected) exposure to other viral communicable diseases
CPT/HCPCS: 97597; A6197; G0463

== ENCOUNTER → 2020-02-25 | Outpatient (CLI) | payer MEDICARE | LOC: WOUNDCARE 14:24 | PROVIDERS: ATTEND Surgery | DX: I87.331 Chronic venous hypertension (idiopathic) with ulcer and inflammation of right lower extremity (principal); I89.0 Lymphedema, not elsewhere classified; L97.211 Non-pressure chronic ulcer of right calf limited to breakdown of skin; E11.622 Type 2 diabetes mellitus with other skin ulcer | CPT/HCPCS: 99212 ==

== ENCOUNTER 2020-10-19 05:36 | Outpatient (CLI) | payer MEDICARE ==
[~2020-10-19] VITALS: Ht 180.3 cm; Wt 136.1 kg
[~2020-10-19 05:36] MED LIST changes: +CHOL-34 PO; -CHOL10002 PO; +MONT10TA32 PO; -MONT10TA97 PO
[2020-10-19] MEDS ORDERED: POTA10TA36 PO (13:16)
[2020-10-19] MEDS ORDERED: TEST200V21 IM (13:16)
[2020-10-19] MEDS ORDERED: SEMA1PEN3 SQ (13:16)
== END 2020-10-19 14:24 | disposition home or self-care (01) ==
LOC: PREOP 05:36
PROVIDERS: ATTEND Surgery
DX: Z01.818 Encounter for other preprocedural examination (principal)

== ENCOUNTER 2020-10-26 10:48 | Day surgery (SDC) | payer MEDICARE ==
[~2020-10-26] VITALS: Ht 180.3 cm; Wt 136.1 kg
[~2020-10-26 10:48] MED LIST changes: +POTA10TA36 PO; +SEMA1PEN3 SQ; +TEST200V21 IM
[2020-10-26] MEDS ORDERED: LACTATED RINGERS 1,000 ML IV STA (10:55)
[2020-10-26 11:05] VITALS: BP 175/87
[2020-10-26] MEDS ORDERED: LACTATED RINGERS 1,000 ML IV ONE (11:11)
[2020-10-26] MEDS ORDERED: PROPOFOL INJECTION 50 ML IV ONE (11:58)
[2020-10-26 12:10] VITALS: BP 106/63
--- NOTE | 2020-10-26 12:55 | Discharge Inst-Simple/Standard ---
Discharge Inst-Standard Patient Instructions/Follow Up Plan of Care/Instructions/FU: 2 weeks Vanessa Activity as Tolerated: Yes Discharge Diet: Regular Diet NAJMA JIANG DO Oct 26, 2020 12:55
--- NOTE | 2020-10-26 12:55 | Progress Note-Post Operative ---
Post-Operative Progess Note Surgeon (s)/Retail Commission Sales Associate (s) Surgeon NAJMA JIANG DO Retail Commission Sales Associate: na Pre-Operative Diagnosis hx polyps Post-Operative Diagnosis colon polyps Procedure & Operative Findings Date of Procedure 10/26/20 Procedure Performed/Findings colonoscopy c hot bx polypectomy x 2 snare polypectomy x1 Anesthesia Type per granite installer Estimated Blood Loss Estimated blood loss (mL): none Specimens/Packing Specimens Removed sigmoid x 2 rectal x 1 NAJMA JIANG DO Oct 26, 2020 12:54
[2020-10-26 12:59] VITALS: BP 106/64
[2020-10-26 13:04] VITALS: BP 110/66
[2020-10-26 13:10] VITALS: BP 106/63
[2020-10-26 13:50] VITALS: BP 114/73
--- NOTE | 2020-10-26 15:14 | Anesthesia-General Post-Op ---
MAC Patient Condition Mental Status/LOC: Same as Preop Cardiovascular: Satisfactory Nausea/Vomiting: Absent Respiratory: Satisfactory Pain: Controlled Complications: Absent Post Op Complications Complications None Follow Up Care/Instructions Patient Instructions None needed. Anesthesiology Discharge Order Discharge Order Patient is doing well, no complaints, stable vital signs, no apparent adverse anesthesia problems. No complications reported per nursing. MICHAELA OAKES CRNA Oct 26, 2020 15:14
--- NOTE | 2020-10-26 19:47 | OPERATIVE REPORT ---
DATE OF SERVICE: 10/26/2020 PREOPERATIVE DIAGNOSIS: History of polyps and family history of colon cancer. POSTOPERATIVE DIAGNOSIS: Colon polyps. PROCEDURES PERFORMED: Colonoscopy with hot biopsy polypectomy x2 and snare polypectomy x1. SURGEON: Najma Mendez DO. ANESTHESIA: Per CATALYST IMPREGNATOR. ESTIMATED BLOOD LOSS: None. COMPLICATIONS: None. INDICATIONS FOR PROCEDURE: The patient is a 65-year-old male with history of polyps. He understands risks and benefits of the procedure and wished to proceed with the procedure. Consent was signed in the chart. DESCRIPTION OF PROCEDURE: The patient was taken to the endoscopy suite and placed in a left lateral recumbent position. Timeout was performed. Digital rectal exam was performed. There were some hemorrhoids present. No palpable polyps, masses or ulcerations. Scope was inserted in the rectum, advanced all the way to the cecum with minimal difficulty. Prep was adequate with irrigation and suction. Scope was then slowly retracted back. No polyps, masses or ulcerations within the cecum, ascending and transverse colon and descending colon. In the sigmoid colon, polyps that were small were present, which hot biopsy polypectomy was performed. Scope was then continuously and slowly retracted back into the rectum, where there was also a larger polyp, which snare polypectomy was performed. Scope was retroflexed noting no other pathology. The scope was then returned to its normal position, slowly withdrawn until completely removed. The patient tolerated the procedure well without any complications and taken to the recovery room in stable condition. RECOMMENDATIONS: The patient will need a repeat colonoscopy in three to five years. He will follow up in office in two weeks to discuss pathology results. If he has any issues before that be seen at that time. Job ID: [id number] DocumentID: [id number] Dictated Date: 10/26/2020 12:57:46 Construction Electrician Date: 10/26/2020 19:47:08 Dictated By: NAJMA MENDEZ DO
== END 2020-10-26 14:20 | disposition home or self-care (01) ==
LOC: ENDO 10:48
PROVIDERS: ATTEND Surgery
DX: K63.5 Polyp of colon (principal); K62.1 Rectal polyp; E03.9 Hypothyroidism, unspecified; K21.9 Gastro-esophageal reflux disease without esophagitis; J45.909 Unspecified asthma, uncomplicated; G47.33 Obstructive sleep apnea (adult) (pediatric); I10 Essential (primary) hypertension; E78.5 Hyperlipidemia, unspecified; E11.40 Type 2 diabetes mellitus with diabetic neuropathy, unspecified; F32.9 Major depressive disorder, single episode, unspecified; Z79.84 Long term (current) use of oral hypoglycemic drugs; Z79.890 Hormone replacement therapy; Z87.891 Personal history of nicotine dependence; Z79.899 Other long term (current) drug therapy; Z80.0 Family history of malignant neoplasm of digestive organs
CPT/HCPCS: 88305

== ENCOUNTER → 2022-05-02 | Outpatient (CLI) | payer MEDICARE ==
[~2022-05-02] MED LIST changes: +ALBU8.5H6 IH; +MONT-40 PO; -MONT10TA32 PO; +POTA-177 PO; -POTA10TA36 PO; -RT-ALBUINH IH
--- NOTE | 2022-05-02 08:42 | Diagnostic Imaging Report ---
INDICATION: Abdominal aortic aneurysm screening. Abdominal aortic sonography is performed in a routine fashion. The proximal and mid portions of the aorta were nonaneurysmal. Maximal diameter was 2.7 cm. Distal aorta and iliac vessels were not visualized due to overlying gas. IMPRESSION: Visualized portions of the aorta were not aneurysmal, distal portion of the aorta and proximal iliac vessels were not visualized due to overlying gas. Dictated by: Dictated on workstation # [id number]
== END ==
LOC: RAD 07:15
PROVIDERS: ATTEND Internal Medicine
DX: Z13.6 Encounter for screening for cardiovascular disorders (principal)
CPT/HCPCS: 76775

== ENCOUNTER → 2022-05-30 | Outpatient (CLI) | payer MEDICARE, OTHER ==
--- NOTE | 2022-05-30 13:29 | Diagnostic Imaging Report ---
INDICATION: Right lower extremity pain COMPARISON: None TECHNIQUE: Duplex, nuñez-scale and color-flow imaging of the right lower extremity venous system was performed. FINDINGS: The common femoral vein, superficial femoral vein, profunda femoris, and popliteal veins are normal. These vessels show normal compressibility, color flow, and doppler augmentation. The deep calf veins, although not very well seen, demonstrate no distinct intraluminal thrombus. IMPRESSION: Negative venous Doppler of the right lower extremity. Dictated by: Dictated on workstation # [id number]
== END ==
LOC: RAD 09:56
PROVIDERS: ATTEND Internal Medicine
DX: M79.661 Pain in right lower leg (principal)
CPT/HCPCS: 93970

== ENCOUNTER → 2022-06-22 | Outpatient (CLI) | payer MEDICARE | LOC: WOUNDCARE 09:03 | PROVIDERS: ATTEND Family Medicine | DX: L97.212 Non-pressure chronic ulcer of right calf with fat layer exposed (principal); I87.333 Chronic venous hypertension (idiopathic) with ulcer and inflammation of bilateral lower extremity; I89.0 Lymphedema, not elsewhere classified; L03.116 Cellulitis of left lower limb; L03.115 Cellulitis of right lower limb; I70.232 Atherosclerosis of native arteries of right leg with ulceration of calf; E11.622 Type 2 diabetes mellitus with other skin ulcer; E66.01 Morbid (severe) obesity due to excess calories; Z68.41 Body mass index [BMI] 40.0-44.9, adult; J96.11 Chronic respiratory failure with hypoxia; D61.818 Other pancytopenia | CPT/HCPCS: 11042; 87070; 87205; A6197; A6212; G0463 ==

== ENCOUNTER 2022-06-28 12:50 | Outpatient (RCR) | payer MEDICARE ==
[2022-06-22 22:03] LABS: HEPATITIS C ANTIBODY C Non-Reactive (Non-Reactive)
[2022-06-28 13:33] LABS: ABSOLUTE RETIC # 111 10e9/uL (24-90); BASOPHILS % (AUTO) 1 % (0-10); EOSINOPHILS % (AUTO) 1 % (0-10); HEMATOCRIT 37 % (40-54); HEMOGLOBIN 10.9 g/dL (13.3-17.7); LYMPHOCYTES # (AUTO) 0.6 10^3/uL (1.0-4.0); LYMPHOCYTES % (AUTO) 16 % (12-44); MEAN CORPUSCULAR HEMOGLOBIN 27 pg (25-34); MEAN CORPUSCULAR HGB CONC 30 g/dL (32-36); MEAN CORPUSCULAR VOLUME 91 fL (80-99); MEAN PLATELET VOLUME 9.9 fL (9.0-12.2); MONOCYTES # (AUTO) 0.4 10^3/uL (0.0-1.0); MONOCYTES % (AUTO) 11 % (0-12); NEUTROPHILS # (AUTO) 2.4 10^3/uL (1.8-7.8); NEUTROPHILS % (AUTO) 71 % (42-75); PLATELET COUNT 91 10^3/uL (130-400); RETICULOCYTE % 2.75 % (0.50-2.40); WHITE BLOOD COUNT 3.4 10^3/uL (4.3-11.0)
== END 2022-07-02 | disposition home or self-care (01) ==
LOC: ONC 12:50
PROVIDERS: ATTEND Internal Medicine Hematology & Oncology
DX: D61.818 Other pancytopenia (principal); J44.9 Chronic obstructive pulmonary disease, unspecified; E11.9 Type 2 diabetes mellitus without complications; E07.9 Disorder of thyroid, unspecified; M47.817 Spondylosis without myelopathy or radiculopathy, lumbosacral region; M48.061 Spinal stenosis, lumbar region without neurogenic claudication; Z72.0 Tobacco use
CPT/HCPCS: 80074; 82607; 82728; 82746; 83540; 83550; 83615; 85025; 85045

== ENCOUNTER → 2022-06-29 | Outpatient (CLI) | payer MEDICARE | LOC: WOUNDCARE 13:48 | PROVIDERS: ATTEND Family Medicine | DX: L97.212 Non-pressure chronic ulcer of right calf with fat layer exposed (principal); I87.333 Chronic venous hypertension (idiopathic) with ulcer and inflammation of bilateral lower extremity; I89.0 Lymphedema, not elsewhere classified; L03.115 Cellulitis of right lower limb; L03.116 Cellulitis of left lower limb; E11.622 Type 2 diabetes mellitus with other skin ulcer; E66.01 Morbid (severe) obesity due to excess calories; Z68.41 Body mass index [BMI] 40.0-44.9, adult; J96.11 Chronic respiratory failure with hypoxia; D61.818 Other pancytopenia; I96 Gangrene, not elsewhere classified | CPT/HCPCS: 99212 ==

== ENCOUNTER → 2022-07-06 | Outpatient (CLI) | payer MEDICARE | LOC: WOUNDCARE 13:43 | PROVIDERS: ATTEND Family Medicine | DX: L97.212 Non-pressure chronic ulcer of right calf with fat layer exposed (principal); I87.333 Chronic venous hypertension (idiopathic) with ulcer and inflammation of bilateral lower extremity; I89.0 Lymphedema, not elsewhere classified; E11.622 Type 2 diabetes mellitus with other skin ulcer; E66.01 Morbid (severe) obesity due to excess calories; J96.11 Chronic respiratory failure with hypoxia; D61.818 Other pancytopenia | CPT/HCPCS: 99212 ==

== ENCOUNTER 2022-08-02 05:35 | Outpatient (CLI) | payer MEDICARE ==
[~2022-08-02] VITALS: Ht 180.3 cm; Wt 131.0 kg
[2022-08-02] MEDS ORDERED: FERR325T24 PO (15:03)
[2022-08-02] MEDS ORDERED: VITA1CAP PO (15:03)
[2022-08-02] MEDS ORDERED: TADA5TAB13 PO (15:03)
[2022-08-02] MEDS ORDERED: PANT40TA52 PO (15:03)
[2022-08-02] MEDS ORDERED: FLUT1BLS15 IH (15:03)
== END 2022-08-02 15:06 | disposition home or self-care (01) ==
LOC: PREOP 05:35
PROVIDERS: ATTEND Surgery
DX: Z01.818 Encounter for other preprocedural examination (principal)

== ENCOUNTER 2022-08-09 09:17 | Outpatient (RCR) | payer MEDICARE ==
[~2022-08-09 09:17] MED LIST changes: +FERR325T24 PO; +FLUT1BLS15 IH; +PANT40TA52 PO; +TADA5TAB13 PO; +VITA1CAP PO
[2022-08-09 09:28] LABS: BASOPHILS % (AUTO) 0 % (0-10); LYMPHOCYTES # (AUTO) 0.5 10^3/uL (1.0-4.0)
[2022-08-09 09:30] LABS: EOSINOPHILS # (AUTO) 0.1 10^3/uL (0.0-0.3); EOSINOPHILS % (AUTO) 2 % (0-10); HEMATOCRIT 39 % (40-54); HEMOGLOBIN 11.7 g/dL (13.3-17.7); LYMPHOCYTES % (AUTO) 16 % (12-44); MEAN CORPUSCULAR HEMOGLOBIN 27 pg (25-34); MEAN CORPUSCULAR HGB CONC 30 g/dL (32-36); MEAN CORPUSCULAR VOLUME 89 fL (80-99); MEAN PLATELET VOLUME 10.4 fL (9.0-12.2); MONOCYTES # (AUTO) 0.3 10^3/uL (0.0-1.0); MONOCYTES % (AUTO) 8 % (0-12); NEUTROPHILS # (AUTO) 2.5 10^3/uL (1.8-7.8); NEUTROPHILS % (AUTO) 73 % (42-75); PLATELET COUNT 114 10^3/uL (130-400); WHITE BLOOD COUNT 3.3 10^3/uL (4.3-11.0)
[2022-08-15] MEDS ORDERED: PANT40TA2 PO (10:33)
== END 2022-09-01 | disposition home or self-care (01) ==
LOC: ONC 09:17
PROVIDERS: ATTEND Internal Medicine Hematology & Oncology
DX: D69.6 Thrombocytopenia, unspecified (principal); D50.9 Iron deficiency anemia, unspecified; J44.9 Chronic obstructive pulmonary disease, unspecified; E11.9 Type 2 diabetes mellitus without complications; Z72.0 Tobacco use
CPT/HCPCS: 36415; 82728; 83540; 83550; 85025

== ENCOUNTER 2022-08-15 07:06 | Day surgery (SDC) | payer MEDICARE ==
[~2022-08-15] VITALS: Ht 180.3 cm; Wt 131.0 kg
[2022-08-15] MEDS ORDERED: LACTATED RINGERS 1,000 ML IV STA (07:11)
[2022-08-15] MEDS ORDERED: HURRICAINE EXT TUBE (BENZOCAINE) XX PRN (07:15)
[2022-08-15 08:02] VITALS: BP 171/75
[2022-08-15] MEDS ORDERED: MIDAZOLAM 2 MG/2 ML (VERSED) VIAL ONE (09:09)
[2022-08-15] MEDS ORDERED: PROPOFOL INJECTION 50 ML IV ONE (09:09)
[2022-08-15] MEDS ORDERED: KETAMINE 50 MG/5 ML SYRINGE ONE (09:37)
[2022-08-15 10:00] VITALS: BP 123/58
[2022-08-15 10:10] VITALS: BP 121/58
--- NOTE | 2022-08-15 10:31 | Progress Note-Post Operative ---
Post-Operative Progess Note Surgeon (s)/Spa Therapist (s) Surgeon NAJMA JIANG DO Spa Therapist: na Pre-Operative Diagnosis fe def anemia Post-Operative Diagnosis slight gastritis, small h/h, poor prep Procedure & Operative Findings Date of Procedure 08/15/22 Procedure Performed/Findings egd c biopsies, flex sig Anesthesia Type per music therapy specialist Estimated Blood Loss Estimated blood loss (mL): na Specimens/Packing Specimens Removed antrum, ge NAJMA JIANG DO Aug 15, 2022 10:31
--- NOTE | 2022-08-15 10:32 | Discharge Inst-Simple/Standard ---
Discharge Inst-Standard Patient Instructions/Follow Up Plan of Care/Instructions/FU: Clear liquids today and repeat prep instructions today. Nothing to drink after midnight and colonoscopy tomorrow. Activity as Tolerated: Yes Discharge Diet: Liquid Diet NAJMA JIANG DO Aug 15, 2022 10:32
[2022-08-15] MEDS ORDERED: PANT40TA2 PO (10:33)
[2022-08-15 10:56] VITALS: BP 121/58
--- NOTE | 2022-08-15 13:50 | OPERATIVE REPORT ---
DATE OF SERVICE: 08/15/2022 PREOPERATIVE DIAGNOSIS: Iron deficiency anemia. POSTOPERATIVE DIAGNOSES: Slight gastritis, small hiatal hernia. Poor prep. PROCEDURES: EGD with biopsies, flexible sigmoidoscopy. SURGEON: Najma Mendez DO ANESTHESIA: Per CAGE FIGHTER. ESTIMATED BLOOD LOSS: None. COMPLICATIONS: None. INDICATIONS: The patient is a 67-year-old male with iron deficiency anemia. He also has history of polyps. He understands risks and benefits of procedure and wished to proceed. Consent was signed in chart. DESCRIPTION OF PROCEDURE: The patient was taken to endoscopy suite, placed in left lateral recumbent position. Timeout was performed. Scope was inserted in the mouth, down the esophagus, stomach, into the duodenum without difficulty. No polyps, masses or ulcerations in the duodenum. Scope was slowly retracted back into the stomach where it was further insufflated. Slight gastritis appearance. Biopsy of the antrum was obtained. Scope was retroflexed noting a small hiatal hernia, no other pathology. Scope was returned to its normal position, slowly withdrawn until distal esophagus. Biopsy of GE junction was obtained. Scope was slowly retracted back until completely removed, noting no other pathology. Digital rectal exam was performed. No palpable polyps, masses or ulcerations. Scope was inserted in the rectum, concerning time, lot of liquid and some solid stool inserted, irrigated and suctioned. We went through the rectum into the sigmoid colon where continued to encounter this toward poor visualization. Therefore, slowly retracted the scope back without noting significant gross pathology, but scope was slowly retracted until completely removed. The patient tolerated the procedure well without any complications, taken to recovery room in stable condition. RECOMMENDATIONS: The patient will be started on 40 mg of Protonix daily. We will repeat prep today and repeat colonoscopy tomorrow for better visualization. If not, would repeat with a 2-day prep. Job ID: [id number] DocumentID: [id number] Dictated Date: 08/15/2022 10:35:31 Puttying And Calking Supervisor Date: 08/15/2022 13:48:00 Dictated By: NAJMA MENDEZ DO
== END 2022-08-15 11:26 | disposition home or self-care (01) ==
LOC: ENDO 07:06
PROVIDERS: ATTEND Surgery
DX: K29.70 Gastritis, unspecified, without bleeding (principal); K44.9 Diaphragmatic hernia without obstruction or gangrene; K31.89 Other diseases of stomach and duodenum; D50.9 Iron deficiency anemia, unspecified; E66.01 Morbid (severe) obesity due to excess calories; Z86.010 Personal history of colon polyps; Z68.41 Body mass index [BMI] 40.0-44.9, adult
CPT/HCPCS: 82947

== ENCOUNTER 2022-08-16 06:54 | Day surgery (SDC) | payer MEDICARE ==
--- NOTE | 2022-08-15 14:32 | Anesthesia-General Post-Op ---
MAC Patient Condition Mental Status/LOC: Same as Preop Cardiovascular: Satisfactory Nausea/Vomiting: Absent Respiratory: Satisfactory Pain: Controlled Complications: Absent Post Op Complications Complications None Follow Up Care/Instructions Patient Instructions None needed. Anesthesiology Discharge Order Discharge Order Patient is doing well, no complaints, stable vital signs, no apparent adverse anesthesia problems. No complications reported per nursing. SARITA BALES CRNA Aug 15, 2022 14:32
[~2022-08-16] VITALS: Ht 180.3 cm; Wt 131.0 kg
[~2022-08-16 06:54] MED LIST changes: +PANT40TA2 PO
[2022-08-16] MEDS ORDERED: LACTATED RINGERS 1,000 ML IV STA (07:03)
[2022-08-16 07:20] VITALS: BP 167/87
[2022-08-16] MEDS ORDERED: PROPOFOL INJECTION 50 ML IV ONE (07:26)
--- NOTE | 2022-08-16 08:03 | Anesthesia-General Post-Op ---
MAC Patient Condition Mental Status/LOC: Same as Preop Cardiovascular: Satisfactory Nausea/Vomiting: Absent Respiratory: Satisfactory Pain: Controlled Complications: Absent Post Op Complications Complications None Follow Up Care/Instructions Patient Instructions None needed. Anesthesiology Discharge Order Discharge Order Patient is doing well, no complaints, stable vital signs, no apparent adverse anesthesia problems. No complications reported per nursing. EMI SHERIDAN CRNA Aug 16, 2022 08:03
[2022-08-16 08:05] VITALS: BP 114/66
[2022-08-16 08:10] VITALS: BP 104/57
--- NOTE | 2022-08-16 08:24 | Discharge Inst-Simple/Standard ---
Discharge Inst-Standard Patient Instructions/Follow Up Plan of Care/Instructions/FU: 2 weeks Vanessa Activity as Tolerated: Yes Discharge Diet: Regular Diet NAJMA JIANG DO Aug 16, 2022 08:24
--- NOTE | 2022-08-16 08:25 | Progress Note-Post Operative ---
Post-Operative Progess Note Surgeon (s)/Cord Maker (s) Surgeon NAJMA JIANG DO Cord Maker: na Pre-Operative Diagnosis fe def anemia Post-Operative Diagnosis sigmoid colon polyp Procedure & Operative Findings Date of Procedure 08/16/22 Procedure Performed/Findings colonoscopy c hot bx polypectomy x 1 Anesthesia Type per underwriter solicitation director Estimated Blood Loss Estimated blood loss (mL): none Specimens/Packing Specimens Removed sigmoid polyp NAJMA JIANG DO Aug 16, 2022 08:25
[2022-08-16 08:40] VITALS: BP 104/57
[2022-08-16 08:41] VITALS: BP 104/57
--- NOTE | 2022-08-16 13:25 | OPERATIVE REPORT ---
DATE OF SERVICE: 08/16/2022 PREOPERATIVE DIAGNOSIS: Iron deficiency anemia, poor colonic prep yesterday. POSTOPERATIVE DIAGNOSIS: Sigmoid colon polyp. PROCEDURE: Colonoscopy with hot biopsy polypectomy x1. SURGEON: Najma Mendez DO ANESTHESIA: Per COMPLIANCE NURSE. ESTIMATED BLOOD LOSS: None. COMPLICATIONS: None. INDICATIONS: The patient is a 67-year-old male with iron deficiency anemia. He had poor prep yesterday, he repeated prep, he is ready for colonoscopy today. He understands risks and benefits of procedure and wishes to proceed. Consent was signed on chart. DESCRIPTION OF PROCEDURE: The patient was taken to endoscopy suite, placed in left lateral recumbent position. Timeout was performed. Digital rectal exam was performed. No palpable polyps, masses or ulcerations. Scope was inserted in the rectum, advanced all the way to the cecum with minimal difficulty. Prep was adequate. Scope was slowly retracted back. No polyps, masses or ulcerations in the cecum, ascending, transverse, descending and sigmoid colon. There were small polyp in the sigmoid colon, which hot biopsy polypectomy was performed. Scope was then continuously retracted back into the rectum, where it was also retroflexed and no other pathology. Scope was returned to its normal position, slowly withdrawn until completely removed. The patient tolerated the procedure well without complications, taken to recovery room in stable condition. RECOMMENDATIONS: The patient will need repeat colonoscopy in 5 years. Any issues before that, be seen at that time. Also consider capsule endoscopy due to iron deficiency anemia, no significant source of findings for cause. Job ID: [id number] DocumentID: [id number] Dictated Date: 08/16/2022 08:27:22 Circular Head Saw Operator Date: 08/16/2022 13:23:00 Dictated By: NAJMA MENDEZ DO
== END 2022-08-16 10:10 | disposition home or self-care (01) ==
LOC: ENDO 06:54
PROVIDERS: ATTEND Surgery
DX: D50.9 Iron deficiency anemia, unspecified (principal); K63.5 Polyp of colon; E11.9 Type 2 diabetes mellitus without complications; Z79.84 Long term (current) use of oral hypoglycemic drugs; Z79.85 Long-term (current) use of injectable non-insulin antidiabetic drugs; E66.01 Morbid (severe) obesity due to excess calories; J44.9 Chronic obstructive pulmonary disease, unspecified; Z68.41 Body mass index [BMI] 40.0-44.9, adult
CPT/HCPCS: 82947; 88305

== ENCOUNTER 2022-10-11 10:42 | Outpatient (RCR) | payer MEDICARE ==
[2022-10-11 11:28] LABS: BASOPHILS % (AUTO) 0 % (0-10); MONOCYTES % (AUTO) 10 % (0-12)
[2022-10-11 11:29] LABS: EOSINOPHILS # (AUTO) 0.1 10^3/uL (0.0-0.3); EOSINOPHILS % (AUTO) 5 % (0-10); HEMATOCRIT 39 % (40-54); HEMOGLOBIN 12.2 g/dL (13.3-17.7); LYMPHOCYTES # (AUTO) 0.5 10^3/uL (1.0-4.0); LYMPHOCYTES % (AUTO) 19 % (12-44); MEAN CORPUSCULAR HEMOGLOBIN 29 pg (25-34); MEAN CORPUSCULAR HGB CONC 31 g/dL (32-36); MEAN CORPUSCULAR VOLUME 94 fL (80-99); MEAN PLATELET VOLUME 10.5 fL (9.0-12.2); MONOCYTES # (AUTO) 0.3 10^3/uL (0.0-1.0); NEUTROPHILS # (AUTO) 1.9 10^3/uL (1.8-7.8); NEUTROPHILS % (AUTO) 67 % (42-75); PLATELET COUNT 82 10^3/uL (130-400); WHITE BLOOD COUNT 2.9 10^3/uL (4.3-11.0)
== END 2022-11-02 | disposition home or self-care (01) ==
LOC: ONC 10:42
PROVIDERS: ATTEND Internal Medicine Hematology & Oncology
DX: D50.9 Iron deficiency anemia, unspecified (principal); J44.9 Chronic obstructive pulmonary disease, unspecified; E11.9 Type 2 diabetes mellitus without complications; Z72.0 Tobacco use
CPT/HCPCS: 82728; 83540; 83550; 85025; G0463; 36415; 99214

== ENCOUNTER 2022-12-06 13:10 | Outpatient (RCR) | payer MEDICARE ==
[2022-12-06 14:04] LABS: EOSINOPHILS # (AUTO) 0.2 10^3/uL (0.0-0.3); HEMATOCRIT 42 % (40-54); HEMOGLOBIN 13.4 g/dL (13.3-17.7); MEAN CORPUSCULAR HEMOGLOBIN 31 pg (25-34); MEAN CORPUSCULAR HGB CONC 32 g/dL (32-36); MEAN CORPUSCULAR VOLUME 95 fL (80-99); PLATELET COUNT 83 10^3/uL (130-400)
[2022-12-06 14:06] LABS: BASOPHILS % (AUTO) 1 % (0-10); EOSINOPHILS % (AUTO) 4 % (0-10); LYMPHOCYTES # (AUTO) 0.8 10^3/uL (1.0-4.0); LYMPHOCYTES % (AUTO) 22 % (12-44); MEAN PLATELET VOLUME 10.4 fL (9.0-12.2); MONOCYTES # (AUTO) 0.3 10^3/uL (0.0-1.0); MONOCYTES % (AUTO) 7 % (0-12); NEUTROPHILS # (AUTO) 2.5 10^3/uL (1.8-7.8); NEUTROPHILS % (AUTO) 66 % (42-75); WHITE BLOOD COUNT 3.8 10^3/uL (4.3-11.0)
[2022-12-06 14:21] LABS: ALBUMIN 3.2 GM/DL (3.2-4.5); BILIRUBIN,TOTAL 2.6 MG/DL (0.1-1.0); CALCIUM 10.1 MG/DL (8.5-10.1); CREATININE SERUM 1.03 MG/DL (0.60-1.30); POTASSIUM 3.7 MMOL/L (3.6-5.0); TOTAL PROTEIN 7.4 GM/DL (6.4-8.2)
== END 2023-01-02 | disposition home or self-care (01) ==
LOC: ONC 13:10
PROVIDERS: ATTEND Internal Medicine Hematology & Oncology
DX: D50.9 Iron deficiency anemia, unspecified (principal); D69.6 Thrombocytopenia, unspecified; E11.9 Type 2 diabetes mellitus without complications; Z72.0 Tobacco use
CPT/HCPCS: 80053; 82728; 83540; 83550; 85025; G0463; 36415; 99214